=== PATIENT | female | born 1990 | race Caucasian/White ===

== ENCOUNTER → 2016-10-27 | Outpatient (CLI) | payer OTHER ==
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
== END ==
LOC: M PAIN 13:20
PROVIDERS: ATTEND Nurse Practitioner Family
DX: M53.3 Sacrococcygeal disorders, not elsewhere classified (principal); G89.29 Other chronic pain; Z79.899 Other long term (current) drug therapy; F90.9 Attention-deficit hyperactivity disorder, unspecified type; J45.909 Unspecified asthma, uncomplicated; R73.09 Other abnormal glucose; F32.9 Major depressive disorder, single episode, unspecified; I10 Essential (primary) hypertension; E55.9 Vitamin D deficiency, unspecified; G47.30 Sleep apnea, unspecified; Z72.0 Tobacco use; Z88.1 Allergy status to other antibiotic agents; Z88.5 Allergy status to narcotic agent; Z88.8 Allergy status to other drugs, medicaments and biological substances

== ENCOUNTER → 2016-11-28 | Outpatient (REF) | payer OTHER, MEDICARE ==
[2016-11-28 12:22] LABS: BASO % 0.4 % (0.0-1.0); EOS # 0.1 K/mm3 (0.0-0.50); LYMPH # 2.3 K/mm3 (1.5-6.5); LYMPH % 26.9 % (24.0-44.0); MEAN CORPUSCULAR HEMOGLOBIN 30.3 pg (27.0-33.0); MEAN CORPUSCULAR HGB CONC 33.3 g/dl (32.0-36.5); MONO # 0.4 K/mm3 (0.0-0.8); MONO % 4.7 % (0.0-5.0); NEUTROPHILS # 5.5 K/mm3 (1.8-7.7); NEUTROPHILS % 65.4 % (36.0-66.0); RED CELL DISTRIBUTION WIDTH 12.2 % (11.5-14.5); WHITE BLOOD COUNT 8.5 K/mm3 (4.0-10.0)
[2016-11-28 13:02] LABS: ALBUMIN 3.8 GM/DL (3.2-5.2); ALBUMIN/GLOBULIN RATIO 1.12 (1.00-1.93); ALKALINE PHOSPHATASE 87 U/L (45-117); ALT/SGPT 36 U/L (12-78); ANION GAP 9 MEQ/L (8-16); AST/SGOT 23 U/L (15-37); BILIRUBIN,TOTAL 0.3 MG/DL (0.2-1.0); BLOOD UREA NITROGEN 7 MG/DL (7-18); CARBON DIOXIDE LEVEL 26 MEQ/L (21-32); CHLORIDE LEVEL 105 MEQ/L (98-107); CHOLESTEROL LEVEL 186 MG/DL (<200); CREATININE FOR GFR 0.87 MG/DL (0.55-1.02); GLOMERULAR FILTRATION RATE > 60.0 (>60); GLUCOSE, FASTING 103 MG/DL (70-105); HCG, SERUM QUANTITATIVE < 1.0 MIU/ML; POTASSIUM SERUM 4.1 MEQ/L (3.5-5.1); SODIUM LEVEL 140 MEQ/L (136-145); TOTAL PROTEIN 7.2 GM/DL (6.4-8.2); TRIGLYCERIDES LEVEL 199 MG/DL (<150)
== END ==
LOC: M LABDRAW1 11:54
PROVIDERS: ATTEND Physician Assistant Medical
DX: R73.9 Hyperglycemia, unspecified (principal); I10 Essential (primary) hypertension; E55.9 Vitamin D deficiency, unspecified; N93.9 Abnormal uterine and vaginal bleeding, unspecified

== ENCOUNTER → 2017-01-18 | Outpatient (CLI) | payer OTHER ==
--- NOTE | 2017-01-19 05:16 | REP ---
Clinical: Left lower quadrant pain . Technique: Transabdominal pelvic ultrasound followed by transvaginal examination for better evaluation of the endometrium and adnexa with color Doppler evaluation of the ovaries. Findings: Bladder is unremarkable and measures 7.1 x 4.6 x 4.5 cm . Normal anteverted uterus measures 6.3 x 3.2 x 4.6 cm . The endometrial complex measures 6.5 mm thickness. No discrete uterine or endometrial abnormalities are appreciated. Bilateral ovaries are normal in appearance and vascularity without evidence for torsion. Right ovary measures 3.6 x 2.0 x 3.4 cm ; R I = 0.53 . Left ovary measures 3.0 x 2.3 x 2.9 cm ; R I = 0.52 . No pelvic fluid or adnexal mass lesions. . Impression: 1. Normal pelvic ultrasound Signed by Werner Colby MD 01/19/2017 05:08 A
== END ==
LOC: M WHC 10:22
PROVIDERS: ATTEND Nurse Practitioner Family
DX: R10.32 Left lower quadrant pain (principal)

== ENCOUNTER → 2017-03-10 | Outpatient (REF) | payer OTHER | LOC: M SFHCWAGY 10:17 | PROVIDERS: ATTEND Nurse Practitioner Family | DX: Z12.4 Encounter for screening for malignant neoplasm of cervix (principal) ==

== ENCOUNTER → 2017-07-02 | Outpatient (REF) | payer OTHER | LOC: EEVIPCON 18:49 → M LAB REF 18:49 | PROVIDERS: ATTEND Physician Assistant | DX: L02.511 Cutaneous abscess of right hand (principal) ==

== ENCOUNTER → 2018-02-19 | Outpatient (REF) | payer OTHER ==
[2018-02-19 18:38] LABS: TOTAL 25(OH) VITAMIN D 20.8 NG/ML (30.0-100.0)
== END ==
LOC: M SFHCPLAZ 16:00
DX: E55.9 Vitamin D deficiency, unspecified (principal)

== ENCOUNTER 2018-03-13 19:12 | Emergency (ER) | payer OTHER ==
[2018-03-13] MEDS: NORCO 5/325MG TABLET (BULK FOR ED) PO (21:19)
== END 2018-03-13 21:39 | disposition home or self-care (01) ==
LOC: M ED 19:12
DX: S83.411A Sprain of medial collateral ligament of right knee, initial encounter (principal); X50.1XXA Overexertion from prolonged static or awkward postures, initial encounter; Y92.098 Other place in other non-institutional residence as the place of occurrence of the external cause; I10 Essential (primary) hypertension; E28.2 Polycystic ovarian syndrome; F17.200 Nicotine dependence, unspecified, uncomplicated; J30.89 Other allergic rhinitis; Z88.5 Allergy status to narcotic agent; Z88.1 Allergy status to other antibiotic agents; Z88.8 Allergy status to other drugs, medicaments and biological substances; Z79.899 Other long term (current) drug therapy; Z79.2 Long term (current) use of antibiotics
CPT/HCPCS: 73564

== ENCOUNTER → 2018-05-24 | Outpatient (REF) | payer OTHER ==
[2018-05-24 15:59] LABS: TOTAL 25(OH) VITAMIN D 19.7 NG/ML (30.0-100.0)
== END ==
LOC: M SFHCPLAZ 10:16
DX: E55.9 Vitamin D deficiency, unspecified (principal)
CPT/HCPCS: 82306

== ENCOUNTER → 2018-06-01 | Outpatient (REF) | payer MEDICAID | LOC: M SFHCWAGY 13:48 | DX: Z12.4 Encounter for screening for malignant neoplasm of cervix (principal) ==

== ENCOUNTER → 2019-08-19 | Outpatient (CLI) | payer MEDICAID ==
[~2019-08-19] MED LIST: ATOR1TAB21 PO; CEFD1CAP8 PO; CETI10TA PO; HYDR-643 PO; LAMO150T3 PO; LISI-1046 PO; OMEP40CA97 PO
[2019-08-19 10:55] LABS: HEMOGLOBIN A1c 6.9 %
== END ==
LOC: M PLALAB 08:31
PROVIDERS: ATTEND Physician Assistant
DX: R73.01 Impaired fasting glucose (principal)

== ENCOUNTER → 2020-06-01 | Outpatient (CLI) | payer OTHER ==
[~2020-06-01] MED LIST changes: -LISI-1046 PO; +LISI2.5T2 PO
[2020-06-01 15:42] LABS: ALT/SGPT 25 U/L (12-78); BILIRUBIN,TOTAL 0.2 MG/DL (0.2-1.0); BLOOD UREA NITROGEN 8 MG/DL (7-18); CALCIUM LEVEL 9.3 MG/DL (8.5-10.1); CARBON DIOXIDE LEVEL 29 MEQ/L (21-32); CHLORIDE LEVEL 107 MEQ/L (98-107); CREATININE FOR GFR 0.78 MG/DL (0.55-1.30); GLOMERULAR FILTRATION RATE > 60.0 (>60); GLUCOSE, FASTING 109 MG/DL (70-100); SODIUM LEVEL 138 MEQ/L (136-145); TRIGLYCERIDES LEVEL 230 MG/DL (<150)
[2020-06-01 15:43] LABS: ALBUMIN 4.1 GM/DL (3.2-5.2); CHOLESTEROL LEVEL 169 MG/DL (<200); CHOLESTEROL RISK RATIO 4.694 (<5); HDL CHOLESTEROL 36 MG/DL (>40); LDL CHOLESTEROL 87 MG/DL (<100); NON-HDL-C 133 MG/DL; TOTAL PROTEIN 7.6 GM/DL (6.4-8.2)
== END ==
LOC: M PLALAB 13:33
PROVIDERS: ATTEND Nurse Practitioner Family
DX: E78.2 Mixed hyperlipidemia (principal)

== ENCOUNTER → 2020-11-12 | Outpatient (CLI) | payer OTHER ==
--- NOTE | 2020-11-16 14:46 | SLEEPHOME ---
DIAGNOSTIC HOME SLEEP STUDY DATE: 11/12/2020 ORDERED BY: ZACH Vizcaino Diagnostic home sleep testing was performed due to concern for the obstructive sleep apnea syndrome in this patient with a history of excessive somnolence and nonrestorative sleep. For testing, a nocturnal T3 respiratory monitoring device was used. Continuous record was made of pulse, oxygen saturation, air flow, chest and abdominal strain, and body position. 9 hours and 59 minutes of data were reviewed. There were 4 hours and 57 minutes marked as time in bed. During the interval marked time in bed, there were 126 respiratory events identified of 10 seconds in duration or greater for a respiratory event index 25.4. The events were primarily obstructive. Baseline pulse rate 64. Pulse rate range 49 to 93. Baseline saturation was 94%. Saturations fell to 83%. Testing was performed in both the supine and non-supine positions. IMPRESSION: Abnormal home sleep testing, with repetitive respiratory events and oxygen desaturations to 83% with a respiratory event index of 25.4, is consistent with the obstructive sleep apnea syndrome. RECOMMENDATION: The patient should be encouraged to undergo a formal sleep evaluation. Sherrie Liu
== END ==
LOC: M SLEEP HO 11:30
PROVIDERS: ATTEND Nurse Practitioner Family
DX: R06.83 Snoring (principal)

== ENCOUNTER → 2020-12-03 | Outpatient (REF) | payer OTHER | LOC: M SFHCWAGY 10:10 | PROVIDERS: ATTEND Nurse Practitioner Women's Health | DX: Z12.4 Encounter for screening for malignant neoplasm of cervix (principal); Z77.9 Other contact with and (suspected) exposures hazardous to health ==

== ENCOUNTER → 2021-01-14 | Outpatient (REF) | payer OTHER ==
[2021-01-14 18:31] LABS: MALB URINE SIEMENS 19.7 MG/L; MAU/CREAT RATIO 15.5 MCG/MG (0.0-30.0)
== END ==
LOC: M LAB REF 17:04
PROVIDERS: ATTEND Nurse Practitioner Family
DX: E11.65 Type 2 diabetes mellitus with hyperglycemia (principal)

== ENCOUNTER → 2021-01-22 | Outpatient (REF) | payer OTHER ==
[2021-01-22 17:24] LABS: HEMOGLOBIN A1c 5.6 %
[2021-01-22 17:38] LABS: BLOOD UREA NITROGEN 5 MG/DL (7-18); C REACTIVE PROTEIN QUANTITATIV 0.55 MG/DL (0.00-0.30); CALCIUM LEVEL 9.4 MG/DL (8.5-10.1); CARBON DIOXIDE LEVEL 29 MEQ/L (21-32); CHLORIDE LEVEL 105 MEQ/L (98-107); CREATININE FOR GFR 0.53 MG/DL (0.55-1.30); GLOMERULAR FILTRATION RATE > 60.0 (>60); GLUCOSE, FASTING 77 MG/DL (70-100); POTASSIUM SERUM 4.1 MEQ/L (3.5-5.1); RHEUMATOID FACTOR QUANT < 10.0 IU/ML (<15.0); SODIUM LEVEL 138 MEQ/L (136-145)
[2021-01-27 16:12] LABS: ANTINUCLEAR ANTIBODIES DIRECT Negative (Negative); CYCLIC CITRULLINATED PEPTIDE 5 units (0-19); HLA-B27 Negative (.)
== END ==
LOC: M SFHCPLAZ 15:44
PROVIDERS: ATTEND Physician Assistant
DX: E11.9 Type 2 diabetes mellitus without complications (principal); M13.0 Polyarthritis, unspecified

== ENCOUNTER → 2021-02-02 | Outpatient (CLI) | payer OTHER ==
--- NOTE | 2021-02-02 14:31 | PFTRPT ---
Height: 61.00 Inches Weight: 209.00 Lbs BSA: 1.92 Diagnosis: R05 DATE: 02/02/2021 ORDERING PHYSICIAN: NATASHA Vizcaino Pre and post bronchodilator studies have excellent technical quality. Forced vital capacity is normal. FEV1 is in proportion. Obstructive index is therefore normal. Expiratory limit of the flow-volume loop is normal. No significant bronchodilator response is identified. Total lung capacity is normal. Residual volume is in proportion. Diffusing capacity is normal. Hemoglobin is acceptable at 14.0. Airway resistance and conductance are normal. IMPRESSION: Normal study. MTDD
--- NOTE | 2021-02-02 14:54 | REP ---
INDICATION: SNORING COMPARISON: 12/31/2012 TECHNIQUE: PA and lateral. FINDINGS: The mediastinum and cardiac silhouette are normal. The lung galvin are clear and without acute consolidation, effusion, or pneumothorax. The skeletal structures are intact and normal. IMPRESSION: No acute cardiopulmonary process. <Electronically signed by Werner Colby > 02/02/21 8428
== END ==
LOC: M CARPUL 13:59
PROVIDERS: ATTEND Nurse Practitioner Family
DX: R05 Cough (principal)

== ENCOUNTER → 2021-08-09 | Outpatient (CLI) | payer OTHER ==
[~2021-08-09] MED LIST changes: -CEFD1CAP8 PO; +CEFD300C41 PO; +ERGO500029; -LISI2.5T2 PO; +LISI2.5T9 PO; +METF-839 PO; +OMEP40CA4 PO; -OMEP40CA97 PO; +TRUL10IN; +ZOLO100T
[2021-08-09 17:38] LABS: BASO % 0.3 % (0.0-1.0); EOS # 0.1 10^3/uL (0.0-0.5); EOS % 0.7 % (0.0-3.0); HEMATOCRIT 42.3 % (36.0-47.0); HEMOGLOBIN 13.9 g/dl (12.0-15.5); LYMPH # 3.2 10^3/uL (1.5-5.0); LYMPH % 35.7 % (24.0-44.0); MEAN CORPUSCULAR HEMOGLOBIN 29.6 pg (27.0-33.0); MEAN CORPUSCULAR HGB CONC 32.9 g/dl (32.0-36.5); MONO # 0.5 10^3/uL (0.0-0.8); MONO % 5.4 % (2.0-8.0); NEUTROPHILS # 5.2 10^3/uL (1.5-8.5); NEUTROPHILS % 57.6 % (36.0-66.0); PLATELET COUNT, AUTOMATED 230 10^3/uL (150-450); WHITE BLOOD COUNT 9.1 10^3/uL (4.0-10.0)
[2021-08-09 17:50] LABS: INR 1.03; PROTHROMBIN TIME 13.9 SECONDS (12.7-14.5)
[2021-08-09 18:06] LABS: HEMOGLOBIN A1c 5.8 %
[2021-08-09 18:28] LABS: ALBUMIN 3.6 GM/DL (3.2-5.2); ALT/SGPT 28 U/L (12-78); BILIRUBIN,TOTAL 0.2 MG/DL (0.2-1.0); BLOOD UREA NITROGEN 7 MG/DL (7-18); CALCIUM LEVEL 8.8 MG/DL (8.5-10.1); CARBON DIOXIDE LEVEL 28 MEQ/L (21-32); CHLORIDE LEVEL 108 MEQ/L (98-107); CREATININE FOR GFR 0.61 MG/DL (0.55-1.30); GLOMERULAR FILTRATION RATE > 60.0 (>60); GLUCOSE, FASTING 100 MG/DL (70-100); POTASSIUM SERUM 3.9 MEQ/L (3.5-5.1); SODIUM LEVEL 141 MEQ/L (136-145)
[2021-08-09 18:29] LABS: FREE T4 0.71 NG/DL (0.76-1.46); NT-PRO BNP 47 PG/ML (<125)
== END ==
LOC: M PLALAB 15:49
PROVIDERS: ATTEND Family Medicine
DX: E11.9 Type 2 diabetes mellitus without complications (principal)

== ENCOUNTER → 2021-08-13 | Outpatient (CLI) | payer OTHER ==
[~2021-08-13] MED LIST changes: +CEFD1CAP8 PO; -CEFD300C41 PO
== END ==
LOC: M LABSMTC 10:45
PROVIDERS: ATTEND Anesthesiology
DX: Z01.812 Encounter for preprocedural laboratory examination (principal); Z20.822 Contact with and (suspected) exposure to COVID-19

== ENCOUNTER 2021-08-18 08:25 | Day surgery (SDC) | payer OTHER ==
[~2021-08-18] VITALS: Ht 154.9 cm; Wt 94.9 kg
[~2021-08-18 08:25] MED LIST changes: +LIDOCAINE 1% MDV 20ML VIAL SQ PRN; +LR 1,000 ML IV ONE; +ceFAZolin SOD 2 GM in IV 1 EA IV ONE
--- OUTSIDE RECORDS SUMMARY | 2021-08-18 08:31 | CCD | Continuity of Care Document ---
Author Author Raymon LOVELL MOBILE LOUNGE DRIVER OR OPERATOR Organization Unknown Address [address] [place] [address] [place] [address] Phone [phone] Care Team Providers Care Conductor Freight Name Role Phone [facility] AUTM [phone] Problems Description No Information Available Social History Type Date Description Comments Sex Unknown Tobacco Use Start: Unknown End: Unknown Former Cigarette Smo ker ETOH Use Occasionally consumes alcohol Tobacco Use Start: Unknown End: Unknown Patient is a former smoker Tobacco Use Start: Unknown Patient Currently Vapes Smoking Status Reviewed: 07/27/21 Patient Currently Vapes Allergies and adverse reactions Active Allergies Criticality Reaction | Severity Comments Date Morphine Sulfate Unable to assess criticality hallucin ations 06/11/2008 Ortho Evra Unable to assess criticality rash 06/11/2008 Codeine Unable to assess criticality hives 01/31/2017 Clarithromycin Unable to assess criticality vomiting 09/16/2017 Medications Active Medications SIG Qnty Indications Ordering Provide r Date Lisinopril 2.5mg Tablets 1 by mouth every day Unknown Omeprazole 40mg Capsules DR 1 by mouth daily. take 1 hour before eating Unknown Lamotrigine 150mg Tablets 2 q d Unknown Loratadine 10mg Tablets 1 by mouth every day Unknown Hydroxyzine HCL 10mg Tablets daily Unknown Sertraline HCL 100mg Tablets daily Unknown Atorvastatin Calcium Unknown Ventolin HFA Unknown History Medications Prednisone 20mg Tablets 1 tab twice a day for 4 days 8tabs M25.552 Wero Taylor JR., M.D. 08/2021 - 02/24/2021 Ibuprofen 800mg Tablets 1 tablet by mouth three times a day as needed for pain 60tabs M25.552 Col kim Taylor JR., M.D. 02/20/2021 - 03/02/2021 Immunizations CPT Code Status Date Vaccine Reaction Lot # [id number] Given 01/31/2017 Tdap/Tetanus, Di phth Toxoids/Acellular Pertussis Vac 7Yr Or > No reaction [id number] Vital Signs Date Vital Result Comment 07/27/2021 2:37pm BP Systolic 138 mmHg BP Diastolic 78 mmHg Heart Rate 80 /min Respiratory Rate 20 /min O2 % BldC Oximetry 99 % Body Temperature 98.0 F Weight 209.00 lb Height 61 inches 5'1" BMI (Body Mass Index) 39.5 kg/m2 Pain Level 4 02/20/2021 1:18pm BP Systolic 138 mmHg BP Diastolic 82 mmHg Heart Rate 82 /min Respiratory Rate 16 /min O2 % BldC Oximetry 98 % Body Temperature 98.0 F Weight 208.00 lb Height 61 inches 5'1" BMI (Body Mass Index) 39.3 kg/m2 Pain Level 5 Results Description No Information Available Procedures Date Code Description Status 07/27/2021 08999 Office/Outpatient Established Mo d MDM 30-39 Min Completed 02/20/2021 33232 Office/Outpatient Established Lo w MDM 20-29 Min Completed Medical Devices Description No Information Available Encounters Type Date Location Provider Dx Diagnosis Office Visit 07/27/2021 2:10p Main Office Ashley Lovell NP J06. 9 Acute upper respiratory infection, unspecified R11.0 Nausea Z20.828 Contact w and exposure to ot h viral communicable diseases Office Visit 02/20/2021 12:25p Main Office Ashley Lovell NP M25. 552 Pain in left hip Assessments Date Code Description Provider 07/27/2021 J06.9 Acute upper respiratory infectio n, unspecified Ashley Lovell NP 07/27/2021 R11.0 Nausea Ashley mathews NP 07/27/2021 Z20.828 Contact with and (schaefer spected) exposure to other viral communicable diseases Ashley Lovell NP 02/20/2021 M25.552 Pain in left hip Ashley khalil NP Plan of Treatment No Information Available Functional Status Description No Information Available Mental Status Description No Information Available Referrals Refer to Reason for Referral Status Appt Date Drake Hagen MD left hip pain x3-4 months Patient Declined [address] [place], [place] [id number] [phone]
--- OUTSIDE RECORDS SUMMARY | 2021-08-18 08:31 | CCD | Continuity of Care Document ---
Author Author Raymon DON NP Organization Unknown Address [address] [place] [address] Phone [phone] Care Team Providers Care Guest Services Coordinator Name Role Phone Shukri Velazquez RPA AUTM [phone] Diamond Gomez RPA-C AUTM [phone] Problems Active Problems Provider Date Bipolar disorder Onset: 12/11/2018 Diabetes mellitus Onset: 05/04/2019 Essential hypertension Onset: 12/11/2018 Gastroesophageal reflux disease Onset: 0 12/11/2018 Hyperlipidemia Onset: 12/11/2018 Low back pain Onset: 12/11/2018 Obstructive sleep apnea syndrome Onset: 12/11/2018 Polycystic ovary syndrome Onset: 019 Vitamin D deficiency Onset: 12/11/2018 Pure hypercholesterolemia Shruti Don NP Onset: 11/09 Social History Type Date Description Comments Sex Unknown Cigarette Use Former Cigarette Smoker 1-5 Ciga rettes Daily quit: 2019 ETOH Use Rarely consumes alcohol Tobacco Use Start: Unknown End: Unknown Patient is a former smoker Smoking Status Reviewed: 07/28/21 Patient is a former smoker Allergies and adverse reactions Active Allergies Criticality Reaction | Severity Comments Date Biaxin Unable to assess criticality Vomiting 11/20/2019 Codeine Unable to assess criticality Hives 11/20/2019 Morphine Unable to assess criticality Hallucinations 11/20/2019 Ortho Evra Unable to assess criticality Contact dermatitis 11/20/2019 Medications Active Medications SIG Qnty Indications Ordering Provide r Date BD Uf Mini Pen Needle [id number] Use Once Daily 100units Ophelia Don NP 06/04/2020 Metformin HCL ER 500mg Tablets ER 24HR take one tablet by mouth twice a day 180tabs E11.65 Shruti wharton NP 12/10/2019 BD Pen Needle/Mini/Ultra-Fine/31G X 5mm 31G X 5 mm Misc use 1 per day 100units E11.65 Shruti Don NP 11/11 Proventil HFA 108(90Base) mcg/Act Aerosol 2 puffs every 4 hours as needed 6.700units Liban Capone, D O 07/26/2019 Vitamin D3 50mcg (2000 Ut) Capsule s 1 po qd 30caps Liban Capone, DO 07/24/[address] 1 by mouth every day 90caps Liban Capone, DO 03/15/2019 Lamotrigine 150mg Tablets 2 tabs by mouth every day 60tabs Liban Capone, DO 12/11/2018 Loratadine 10mg Capsules 1 by mouth every day 30caps Liban Capone, DO 12/11/2018 Sertraline HCL 100mg Tablets 2 tabs by mouth every day 60tabs Liban Capone, DO 12/11/2018 Hydroxyzine HCL 25mg Tablets 1/2 tab by mouth two times a day as needed Unknown Onetouch Verio Flex Blood Glucose Monito ring System w/Device Kit use as directed to check bloodsugars Unknown Onetouch Verio Strips use as directed up to 1 x daily e11.65 100units Shruti Don NP Immunizations Description No Information Available Vital Signs Date Vital Result Comment 07/28/2021 3:22pm BP Systolic 124 mmHg BP Diastolic 68 mmHg Heart Rate 78 /min Height 62.6 inches 5'2.60" Weight 209.00 lb BMI (Body Mass Index) 37.5 kg/m2 O2 % BldC Oximetry 98 % 01/14/2021 1:21pm BP Systolic 136 mmHg BP Diastolic 86 mmHg Heart Rate 81 /min Body Temperature 97.1 F Height 62.6 inches 5'2.60" Weight 216.12 lb BMI (Body Mass Index) 38.8 kg/m2 O2 % BldC Oximetry 96 % Results Test Acquired Date Facility Test Result H/L Range Note Laboratory test finding 07/28/2021 In House Glucose 129 Hemoglobin A1c 5.7 Procedures Date Code Description Status 07/28/2021 29384 Office/Outpatient Established Mo d MDM 30-39 Min Completed 01/14/2021 [id number] Diabetic Foot Exam Completed Medical Devices Description No Information Available Encounters Type Date Location Provider Dx Diagnosis Office Visit 07/28/2021 3:30p DR. Lou Don, N P E11.65 Type 2 diabetes mellitus with hyperglycemia E78.2 Mixed hyperlipidemia E66.01 Morbid (severe) obesity due to excess calories Z68.38 Body mass index [BMI] 38.0-3 8.9, adult Assessments Date Code Description Provider 07/28/2021 E11.65 Type 2 diabetes mellitus with hy perglycemia Shruti Don, OMID 07/28/2021 E78.2 Mixed hyperlipidemia Shruti wharton, OMID 07/28/2021 E66.01 Morbid (severe) obesity due to e xcess calories Shruti Don, MOTHER SUPERIOR 07/28/2021 Z68.38 Body mass index [BMI] 38.0-38.9, adult Shruti Don, OMID 07/19/2021 E11.65 Type 2 diabetes mellitus with hy perglycemia Shruti Don, MOTHER SUPERIOR 07/19/2021 E78.2 Mixed hyperlipidemia Shruti wharton, MOTHER SUPERIOR 07/19/2021 E66.01 Morbid (severe) obesity due to e xcess calories Shruti Don, MOTHER SUPERIOR 07/19/2021 Z68.38 Body mass index [BMI] 38.0-38.9, adult Shruti Don NP Plan of Treatment 07/28/2021 - Shruti Don NP* E11.65 Type 2 diabetes mellitus with hyperglycemia* Comments:* Pt referred for new onset Type 2 Diabetes- dx in 04/2019. Is accompanied by her mother. 07/28/21- in office A1c= 5.7 % (5.4 %, 5.7%, 6.2%, 7%, 08/19/19-6.9%. 05/01/19- A1c= 6.8%) Random BS= 129No meter for downloadCurrent medication: Metformin ER 500mg 1 tab BID, Trulicity 0.75mg weekly( pt stopped taking 2 months ago)Was given Steglatro by PCP but never started- pt prone to UTI and yeast infections. Will continue same. Will recheck in 6 months. * Follow up:* Follow up in 6 months. JL * E78.2 Mixed hyperlipidemia* New Labs:* Lipid Panel, Scheduled: 07/28/21 * Comprehensive Metabolic Profil, Scheduled: 07/28/21 * Comments:* LDL goal < 100Labs done 06/01/2020- chol= 169, Trig= 230, HDL= 36, LDL= 87Pt advised to start Fish oil 1000mg 1 tab BID , never didPt did not have lipid panel and CMP done * E66.01 Morbid (severe) obesity due to excess calories* Comments:* calorie restriction and exercise advised. Did lose 7 lbs since last visit. Will continue same * Z68.38 Body mass index [BMI] 38.0-38.9, adult* Comments:* Diet and exercise discussed. Functional Status Description No Information Available Mental Status Description No Information Available Referrals Refer to Reason for Referral Status Appt Date Shruti Don NP Created 0 [address] [facility] [id number] [place] [id number] [phone]
--- OUTSIDE RECORDS SUMMARY | 2021-08-18 08:31 | CCD | Continuity of Care Document ---
Author Author Raymon DON NP Organization Unknown Address [address] [place] [address] Phone [phone] Care Team Providers Care Coin Machine Supervisor Name Role Phone Shukri Velazquez RPA AUTM [phone] Diamond Gomez RPA-C AUTM [phone] Problems Active Problems Provider Date Bipolar disorder [...] is a former smoker Smoking Status Reviewed: 01/14/21 Patient is a former smoker Allergies and adverse reactions Active Allergies Criticality Reaction | Severity Comments Date Biaxin Unable to assess criticality Vomiting 11/20/2019 Codeine Unable to assess criticality Hives 11/20/2019 Morphine Unable to assess criticality Hallucinations 11/20/2019 Ortho Evra Unable to assess criticality Contact dermatitis 11/20/2019 Medications Active Medications SIG Qnty Indications Ordering Provide r Date BD Uf Mini Pen Needle [id number] Use Once Daily 100units Ophelia Don NP 06/04/2020 Metformin HCL ER 500mg Tablets ER 24HR take one tablet by mouth twice a day 360tabs E11.65 Shruti wharton NP 12/10/2019 BD Pen [...] A1c 5.7 Procedures Date Code Description Status 01/14/2021 [id number] Diabetic Foot Exam Completed Medical Devices Description No Information Available Encounters Description No Information Available Assessments Date Code Description Provider 07/28/2021 E11.65 Type 2 diabetes mellitus with hy perglycemia Shruti Don, OMID 07/28/2021 E78.2 Mixed hyperlipidemia Shruti wharton, OMID 07/28/2021 E66.01 Morbid (severe) obesity due to e xcess calories Shruti Don, OMID 07/28/2021 Z01.89 Encounter for other specified sp ecial examinations Shruti Don NP 07/28/2021 Z68.38 Body mass index [BMI] 38.0-38.9, adult Shruti Don, OMID 07/19/2021 E11.65 Type 2 diabetes mellitus with hy perglycemia Shruti Don NP 07/19/2021 E78.2 Mixed hyperlipidemia Shruti wharton, OMID 07/19/2021 E66.01 Morbid (severe) obesity due to e xcess calories Shruti Don, OMID 07/19/2021 Z68.38 Body mass index [BMI] 38.0-38.9, adult Shruti Don NP Plan of Treatment 07/28/2021 - Shruti Don NP* E11.65 Type 2 diabetes mellitus with hyperglycemia* Comments:* Pt referred for new onset Type 2 Diabetes- dx in 04/2019. Is accompanied by her mother. 01/14/21- in office A1c= 5.4 % (5.7%, 6.2%, 7%, 08/19/19-6.9%. 05/01/19- A1c= 6.8%) Random BS= 98No meter for downloadCurrent medication: Metformin ER 500mg 1 tab BID, Trulicity 0.75mg weeklyWas given Steglatro by PCP but never started- pt prone to UTI and yeast infections. Unable to tolerate higher dose of TrulicityContinues to improve Will continue same.. Will recheck in 6 months. * Follow up:* Follow up in 6 months. ELIZABETH * E78.2 Mixed hyperlipidemia* Comments:* LDL goal < 100Labs done 06/01/2020- chol= 169, Trig= 230, HDL= 36, LDL= 87Pt advised to start Fish oil 1000mg 1 tab BID , never didWill recheck lipid panel and CMP * E66.01 Morbid (severe) obesity due to excess calories* Comments:* calorie restriction and exercise advised. No weight loss since last visit. Will continue same * Z01.89 Encounter for other specified special examinations* Comments:* Foot Exam performed 01/14/21 . Normal light touch and monofilament marvin ting and vibration. * Z68.38 Body mass index [BMI] 38.0-38.9, adult* Comments:* Diet and exercise discussed. Functional Status Description No Information Available Mental Status Description No Information Available Referrals Refer to Reason for Referral Status Appt Date Shruti Don NP Created 0 [address] [facility] [address] [place], [place] [id number] [phone]
--- OUTSIDE RECORDS SUMMARY | 2021-08-18 08:31 | CCD | Continuity of Care Document ---
Author Author Raymon DELACRUZ MD Organization Unknown Address [address] [place] [address] , [facility] [address] [place] [address] Phone [phone] Care Team Providers Care Clam Grower Name Role Phone AUTM Unavailable Diamond Gomez AUTM Problems Active Problems Provider Date Type 2 diabetes mellitus Shivam Delacruz MD Onset: 04/27/20 Social History Type Date Description Comments Sex Unknown ETOH Use Rarely consumes alcohol Recreational Drug Use Marijuana Tobacco Use Start: Unknown End: Patient is a former smoker hx of 1 ppd Tobacco Use Start: Unknown Using Electronic Cig. Smoking Status Reviewed: 02/15/21 Patient is a former smoker hx of 1 ppd Allergies and adverse reactions Active Allergies Criticality Reaction | Severity Comments Date Morphine Unable to assess criticality 06/24/2011 Codeine Unable to assess criticality 06/24/2011 Biaxin Unable to assess criticality 06/24/2011 Ortho Evra Unable to assess criticality 06/24/2011 Medications Active Medications SIG Qnty Indications Ordering Provide r Date Trulicity 1.5mg/0.5ML Solution Pen -Inject once a week Unknown Hydroxyzine HCL 10mg Tablets 1/2 tab by mouth twice a day as needed Unknown Lamictal 150mg Tablets 2 tabs by mouth every day Unknown Flonase Allergy Relief 50mcg/Act Suspension 2 sprays per nostril daily Unknown 0 Meloxicam 15mg Tablets 1 tab by mouth every day Unknown Atorvastatin Calcium 20mg Tablets 1 tab by mouth every day Unknown Metformin HCL ER (Mod) 500mg Tablets ER 24HR 2 tabs by mouth every day 30tabs Unknown Sertraline HCL 100mg Tablets 2 tabs by mouth every day Unknown Omeprazole 40mg Capsules DR 1 cap by mouth every day 30caps Unknown Loratadine 10mg Tablets 1 tab by mouth every day 30tabs Unknown Vitamin D3 50mcg (2000 Ut) Capsule s 1 cap by mouth every day Unknown Lisinopril 2.5mg Tablets 1 tab by mouth every day Unknown Medications Administered in Office Medication SIG Qnty Indications Ordering Provider Date Covid-19 vaccine, Unspecified Inj ection Unknown 01/08/2021 Covid-19 vaccine, Unspecified Inj ection Unknown 12/18/2020 Immunizations Description No Information Available Vital Signs Date Vital Result Comment 07/08/2021 1:35pm Body Temperature 97.6 F 04/27/2021 1:41pm Body Temperature 97.0 F Results Description No Information Available Procedures Date Code Description Status 07/08/2021 58069 Office/Outpatient Established Mo d MDM 30-39 Min Completed 06/03/2021 30816 Office/Outpatient Established Mo d MDM 30-39 Min Completed 04/27/2021 46192 Office/Outpatient New Moderate M DM 45-59 Minutes Completed 04/06/2021 51781 Measure Blood Oxygen Level Claire nuous Overnight Monitor Completed 02/15/2021 32469 Office/Outpatient Established Lo w MDM 20-29 Min Completed Medical Devices Description No Information Available Encounters Type Date Location Provider Dx Diagnosis Office Visit 07/08/2021 1:30p [facility] Shivam Delacruz MD G56.03 Carpal tunnel syndrome, bilateral upper limbs Office Visit 06/03/2021 9:15a [facility] Shivam Delacruz MD G56.03 Carpal tunnel syndrome, bilateral upper limbs Office Visit 04/27/2021 1:45p [facility] Shivam Delacruz MD G56.03 Carpal tunnel syndrome, bilateral upper limbs Office Visit 02/15/2021 2:45p [facility] Von Lee, N.P. G47.33 Obstructive sleep apnea (adult) (pediatr ic) Z71.2 Person consulting for explan ation of exam or test findings Assessments Date Code Description Provider 07/08/2021 G56.03 Carpal tunnel syndrome, bilatera l upper limbs Shivam Delacruz MD 06/03/2021 G56.03 Carpal tunnel syndrome, bilatera l upper limbs Shivam Delacruz MD 04/27/2021 G56.03 Carpal tunnel syndrome, bilatera l upper limbs Shivam Delacruz MD 04/06/2021 G47.33 Obstructive sleep apnea (adult) (pediatric) Nocturnal Oximetry 02/15/2021 G47.33 Obstructive sleep apnea (adult) (pediatric) Beatriz Lee NJulieta 02/15/2021 Z71.2 Person consulting fo r explanation of examination or test findings Beatriz Lee N.P. Plan of Treatment Future Appointment(s):* 08/18/2021 12:45 pm - Beatriz Lee N.P. at [facility] 07/08/2021 - Shivam Delacruz MD* G56.03 Carpal tunnel syndrome, bilateral upper limbs Functional Status Description No Information Available Mental Status Mental Condition Comment Date Status None Active Referrals Refer to Dr Reason for Referral Status Appt Date Beatriz Lee F.N.Speedy ASTHMA J45.909 & LEIGH ANN G47.33 Created [facility] [address] [place] [address] [phone] Jose Sahu M.D. NCS/EMG bilateral upper extr emities assess for CTS, possible cubital tunnel or cervical radiculopathy Closed 05/11/2021 [facility], [address] [place] [address] [phone] Beatriz Lee F.NJulieta asthma/leigh ann Cl[facility]/15[facility]2021 [facility] [address] [place], [place] [address] [phone]"
--- OUTSIDE RECORDS SUMMARY | 2021-08-18 08:31 | CCD | Continuity of Care Document ---
Author Author Raymon LOVELL TONGUE CARRIER Organization Unknown Address [address] [place] [address] [place] [address] Phone [phone] Care Team Providers Care Lens Edge Grinder Machine Name Role Phone [facility] AUTM [phone] Problems Description No Information Available Social History [...] Code Status Date Vaccine Reaction Lot # [id number] Given 01/31/2017 Tdap/Tetanus, Di phth Toxoids/Acellular Pertussis Vac 7Yr Or > No reaction [id number] Vital Signs Date Vital Result Comment 07/27/2021 [...] Information Available Procedures Date Code Description Status 02/20/2021 40787 Office/Outpatient Established Lo w MDM 20-29 Min Completed Medical Devices Description No Information Available Encounters Type Date Location Provider Dx Diagnosis Office Visit 02/20/2021 12:25p Main Office Ashley Lovell NP M25. 552 Pain in left hip Assessments Date Code Description Provider 02/20/2021 M25.552 Pain in left hip Ashley khalil NP Plan of Treatment No Information Available Functional Status Description No Information Available Mental Status Description No Information Available Referrals Refer to Reason for Referral Status Appt Date Drake Hagen MD left hip pain x3-4 months Patient Declined [address] [place] [address] [phone]
--- OUTSIDE RECORDS SUMMARY | 2021-08-18 08:31 | CCD | Continuity of Care Document ---
Author Author Raymon CAPONE PA-C Organization Unknown Address [address] [place] [address] Phone [phone] Care Team Providers Care Management Retail Intern Name Role Phone Randi Liu AIDA AUTM [phone] Diamond Gomez AUTM [phone] Problems Active Problems Provider Date Fracture Phalanx Hand Middle/Prox Closed Onset: 07/02/1999 Sprain of foot Yasmani Medeiros JR, MD Onset: 02/03/20 07 Closed fractures of tarsal AND metatarsal bones Ty larose MD Onset: 01/11/2006 Fracture Phalanx Hand Middle/Prox Closed Bruno Shepard MD Onset: 01/25/2005 Degeneration of lumbar intervertebral disc Ayah Ornelas Onset: 12/21/2004 Contusion of knee Marixa Fitzgerald MD Onset: 10/13/19 05 Closed Colles' fracture Jack Holly MD Onset: Closed fracture of tibia and fibula, shaft Marixa easley MD Onset: 06/16/2003 Closed fracture of radius Elgin Melo MD Onset: 1999 Sprain of ankle Yasmani Medeiros JR, MD Onset: 02/03/20 07 Essential hypertension Onset: 05/04/2015 Pure hypercholesterolemia Onset: 015 Social History Type Date Description Comments Sex Unknown Tobacco Use Start: Unknown End: Unknown Former Cigarette Smo ker ETOH Use Rarely consumes alcohol Recreational Drug Use Denies Drug Use Allergies and adverse reactions Active Allergies Criticality Reaction | Severity Comments Date Morphine Unable to assess criticality 11/12/2013 Codeine Unable to assess criticality 11/12/2013 Biaxin Unable to assess criticality 11/12/2013 Orthoevra Unable to assess criticality 11/12/2013 Ethinyl Estradiol Unable to assess criticality 03/13/2018 Clarithromycin Unable to assess criticality Vomits | Mild 03/13/2018 Medications Active Medications SIG Qnty Indications Ordering Provide r Date Tramadol HCL 50mg Tablets Take 1 tablet every 6 hours as needed for pain. 30tabs Marixa streeter MD 09/27/2018 Ibuprofen 600mg Tablets 1 tab by mouth three times a day 90tabs Gorge Guallpa MD 018 Trulicity 1.5mg/0.5ML Solution Pen -Inject Inject 1.5MG Under The Skin Once A Week as Directed Unknown Meloxicam 15mg Tablets Rodrigo Cooper, DPAyah BD Pen Needle/Mini/Ultra-Fine/31G X 5mm 31G X 5 mm Misc Use 1 Needle Daily Unknown 0 Prednisone 20mg Tablets Ashley Berg FNP Onetouch Ultra Strips Use as Directed Up To 1 Daily Unknown Gabapentin 300mg Capsules Take One Capsule By Mouth Every Day Before Bedtime as Directed Un known Ondansetron HCL 4mg Tablets Take One Tablet By Mouth Twice A Day as Needed For Nausea For 5 Days Unknown Trulicity 0.75mg/0.5 ML Solution Pen-Inject Inject 1 Pen Subcutaneously Once Weekly U nknown Loratadine 10mg Tablets Take One Tablet By Mouth Every Day as Needed For Allergy Symptoms U nknown Vitamin D 1000Unit Tablets 1 by mouth every day Unknown Lisinopril 2.5mg Tablets Chastity y Unknown Hydroxyzine HCL 10mg Tablets Twice A Day Unknown Atorvastatin Calcium 20mg Tablets 1 by mouth every day Unknown Ventolin HFA 108(90Base) mcg/Act A erosol 2 puffs four times a day as needed Unknown Lamotrigine 150mg Tablets 1 by mouth every day Unknown Sertraline HCL 100mg Tablets 1 by mouth every day Unknown Hydroxyzine HCL 20mg Tablets 1 po qd Unknown Omeprazole 40mg Capsules DR 1 po qd Unknown Immunizations Description No Information Available Vital Signs Date Vital Result Comment 07/21/2021 2:51pm Body Temperature 97.4 F Height 62 inches 5'2" Weight 212.00 lb BMI (Body Mass Index) 38.8 kg/m2 12/04/2018 8:50am Body Temperature 97.4 F Height 62.5 inches 5'2.50" Weight 222.06 lb BMI (Body Mass Index) 40.0 kg/m2 Results Description No Information Available Procedures Date Code Description Status 07/21/2021 18821 Office/Outpatient Established Mo d MDM 30-39 Min Completed 07/21/2021 04548 X-Ray Knee Complete W/Obliques & Tunnel And/Or Standing Views Completed Medical Devices Description No Information Available Encounters Type Date Location Provider Dx Diagnosis Office Visit 07/21/2021 2:15p [facility] Demi Capone PA-C S80.02x A Contusion of left knee, initial encounter M17.12 Unilateral primary osteoarth ritis, left knee Assessments Date Code Description Provider 07/21/2021 S80.02xA Contusion of left knee, initial encounter Demi Capone PA-C 07/21/2021 M17.12 Unilateral primary osteoarthriti s, left knee Demi Capone PA-C Plan of Treatment Future Appointment(s):* 08/23/2021 1:15 pm - Demi Capone PA-C at [facility] * 08/12/2021 3:30 pm - MRI at [facility] 07/21/2021 - Demi Capone PA-C* S80.02xA Contusion of left knee, initial encounter* Follow up:* [facility] BOOK IT f/u after MRI results with ZOILA skinner avil for back with ZOILA * M17.12 Unilateral primary osteoarthritis, left knee Functional Status Description No Information Available Mental Status Description No Information Available Referrals Refer to Reason for Referral Status Appt Date Demi Capone PA-C MRI APPROVED PER [facility] WEB FOR MRI OF LEFT KNEE (56339) TO MRI. DG Created [address] [place] [address] [phone] Demi Capone PA-C AUTH FOR PT EVAL [phone] ,[phone]. PAT GOING TO [place]. PASSED TO CHART.HW Created [facility] [place] [address] [phone] Se Duran I, Pac M54.5 LOW BACK PAIN Created [facility] [place] [id number] [phone] Se Duran I, Pac M25.562/M25.561 AZAR KNEE PAIN Created [facility] [address] [address] [phone]
--- OUTSIDE RECORDS SUMMARY | 2021-08-18 08:31 | CCD ---
Author Author [facility] Organization [facility] Address Unknown Phone Unavailable Care Team Providers Care Saturator Name Role Phone Leonardo Eaton Unavailable PROBLEMS Type Condition ICD9-CM Code [id number] Code Onset Dates Condition S tatus W/U Status Risk SNOMED Code Notes Problem Bipolar disorder, unspecified F31.9 Active confirm ed 80564905 She is managed by mental health with sertraline and lamotrigine. Problem ADD (attention deficit disorder) without hyperactivity F98.8 Active confirmed 23861737 Problem Mixed hyperlipidemia E78.2 Active confirmed 589760805 She is on atorvastatin. Most recent lipids in November 2017 were suboptimal but this is managed by her tier lift truck operator. 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 Problem PCOS (polycystic ovarian syndrome) E28.2 Activ e confirmed 76727055 Problem LEIGH ANN (obstructive sleep apnea) G47.33 Active confirm ed 23211831 She apparently is treated for that. Problem Exercise-induced asthma J45.990 Active confirmed 36659860 Problem Bilateral carpal tunnel syndrome G56.03 Active conf irmed 29028792 Problem Gastroesophageal reflux disease, esophagitis pre sence not specified K21.9 Active confirmed 004268636 She is on omep razole therapy with controlled symptoms. Problem History of nicotine use Z87.891 Active confirmed 898312178 Problem Obesity (BMI 30-39.9) E66.9 Active confirmed 794532455 Problem Non-seasonal allergic rhinitis due to other allergic errol er J30.89 Active confirmed 32378793 She is having a bit of a flare and was advised to use her Claritin and I started intranasal steroids. Problem Type 2 diabetes mellitus wit hout complication, without long-term current use of insulin E11.9 Active confirmed 418759637 Problem Non-seasonal allergic rhinitis, unspecified trigger J30.89 Active confirmed 29960733 Problem Body mass index [BMI]40.0-44.9, adult Z68.41 Ac tive confirmed 385713900 ALLERGIES Allergen (clinical drug ingredient) Drug/Non Drug Allergy do cumented on EMR Reaction Allergy Type Onset Date Status morphine Morphine Sulfate([facility] Code:[address]-47) head fe lt funny, passed out Drug Allergy Active Ortho Evra skin reaction Drug Allergy Active clarithromycin Biaxin Nausea/Vomiting Drug Allergy Act shruthi codeine Codeine Sulfate([facility] Code:[address]-70) hives/di ff. breathing Drug Allergy Active ENCOUNTERS from 1991 to 2021-08-13 Encounter Location Date Provider Diagnosis [place] [address] [facility] [phone] [place] [address] Aug, Leonardo Eaton IMMUNIZATIONS Vaccine Route Administration Date Status COVID-19 dose #2 given elsewhere Unspecified Unknown Apr 2020 Administered COVID-19 dose #1 given elsewhere Unspecified Unknown Apr 2020 Administered Influenza 6mo & up Fluzone IM Intramuscular Aug 21, 2018 Admi nistered SOCIAL HISTORY Tobacco Use: Social History Observation Description Date Details (start date - stop date) Former Smoker Sex Assigned At : Social History Observation Description Sex Assigned At Unknown Audit Question Answer Notes Total Score: 0 Interpretation: Alcohol Education Sexual Hx: Question Answer Notes Had sex in the last 12 months (vaginal, oral, or anal)? Yes LMP: 07/09/19 Have you ever had an STD? No Prevention Strategies discussed: Condoms with Men only Use protection? No Drug and Alcohol Question Answer Notes Total Score: 0 Interpretation: No problems reported Alcohol Screening: Question Answer Notes Points 0 Interpretation Negative BMI Care Goal Follow-Up Question Answer Notes Above Normal BMI Follow-Up Giving encouragement to exercise, Weight monitoring Tobacco Use: Question Answer Notes Are you a: former smoker former smoker quit Q uit 06/16/2019 Smoking Cessation Information Given 07/20/2020 How long has it been since you last smoked? 1-5 years REASON FOR REFERRAL No Information VITAL SIGNS No information MEDICATIONS Medication SIG (Take, Route, Frequency, Duration) Notes Start Da te End Date Status Loratadine 10 MG 1 tablet Orally Once a day a s needed for allergy symptoms for 30 Days Active Flonase 50 MCG/ACT 2 sprays in each nostril Nasally Once a day Active Atorvastatin Calcium 20 MG 1 tablet Orally Once a day Active Sertraline HCl 100 MG 2 tabs Orally Once a day Active hydrOXYzine HCl 10 MG 1 tab Orally bid Active Ibuprofen 600 MG 1 tablet with food or milk a s needed Orally Three times a day prn for 30 day(s) Oct, Active metFORMIN HCl ER 500 MG 1 tab Orally Daily Active Omeprazole 40 MG 1 cap orally once daily for 30 Active Ventolin HFA 108 (90 Base) MCG/ACT 2 puffs as needed Inhalation ayana ry 6 hrs Active Lisinopril 2.5 MG 1 tab(s) Orally Once a day Active Drisdol 37552 UNIT 1 capsule Orally weekly for 30 Days May, Active lamoTRIgine 150 MG 2 tablets Orally Once a day Active Gabapentin 300 MG 1 capsule Orally before bedtime for 30 day(s) Mar, Active PROCEDURES No Information RESULTS No Results REASON FOR VISIT No Information MEDICAL (GENERAL) HISTORY Type Description Date Medical History hyperlipidemia 2B Medical History PCOS Medical History Asthma, execise-induced Medical History Bipolar Disorder Medical History hypertension, essential Medical History vitamin D deficiency/didn't finish 50,000 units of vit.,given to her 3months ago-today01/28/14 Medical History LEIGH ANN, severe-11/12/20 HST AHI 2 5, SaO2 to 83%-was on CPAP but removed 2 non-compliance Medical History T2DM NID Surgical History Tonsils and Adenoids Surgical History Appendectomy Surgical History Tib/Fib Fx-left leg Surgical History tymponostomy, tubes as child Surgical History BTB autograft and ACl reconstruction-Dr. Guallpa 08/29/2018 Hospitalization History No Hospitalization history informati on Goals Section No Information Health Concerns No Information MEDICAL EQUIPMENT No Information MENTAL STATUS No Information FUNCTIONAL STATUS No Information ASSESSMENTS No Information PLAN OF TREATMENT Medication Medication Name Sig Start Date Stop Date hydrOXYzine HCl 10 MG 1 tab Orally bid lamoTRIgine 150 MG 2 tablets Orally Once a day Sertraline HCl 100 MG 2 tabs Orally Once a day Atorvastatin Calcium 20 MG 1 tablet Orally Once a day Loratadine 10 MG 1 tablet Orally Once a day a s needed for allergy symptoms for 30 Days Flonase 50 MCG/ACT 2 sprays in each nostril Nasally Once a day Ventolin HFA 108 (90 Base) MCG/ACT 2 puffs as needed Inhalation every 6 hrs metFORMIN HCl ER 500 MG 1 tab Orally Daily Next Appt Details Provider Name:Coni Diazmarlyn, 10-22 01:45:00 PM, [address] [place] [address], , [place], [address], Insurance Providers Payer Name Payer Address Payer Phone Insured Name Patient Relati onship to Insured Coverage Start Date Coverage End Date [facility] [place] [address] [facility] [id number] MILI WHITT self
--- OUTSIDE RECORDS SUMMARY | 2021-08-18 08:31 | CCD ---
Author Author [facility] Organization [facility] Address Unknown Phone Unavailable Care Team Providers Care Producer Arborist Manager Name Role Phone Leonardo Eaton Unavailable PROBLEMS Type Condition ICD9-CM Code LNO28-HR Code Onset Dates Condition S tatus W/U Status Risk SNOMED Code Notes Problem Bipolar disorder, unspecified F31.9 Active confirm ed [id number] She is managed by mental health with sertraline and lamotrigine. 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 Most recent lipids in November 2017 were suboptimal but this is managed by her tool design engineer. 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 Problem PCOS (polycystic ovarian syndrome) E28.2 Activ e confirmed 18574315 Problem LEIGH ANN (obstructive sleep apnea) G47.33 Active confirm ed 40715515 She apparently is treated for that. Problem Exercise-induced asthma J45.990 Active confirmed 84335163 Problem Bilateral carpal tunnel syndrome G56.03 Active conf irmed 83827841 Problem Gastroesophageal reflux disease, esophagitis pre sence not specified K21.9 Active confirmed 016433183 She is on omep razole therapy with controlled symptoms. Problem History of nicotine use Z87.891 Active confirmed 819970017 Problem Obesity (BMI 30-39.9) E66.9 Active confirmed 841575397 Problem Non-seasonal allergic rhinitis due to other allergic errol er J30.89 Active confirmed 77670687 She is having a bit of a flare and was advised to use her Claritin and I started intranasal steroids. Problem Type 2 diabetes mellitus wit hout complication, without long-term current use of insulin E11.9 Active confirmed 890246524 Problem Non-seasonal allergic rhinitis, unspecified trigger J30.89 Active confirmed 09296633 Problem Body mass index [BMI]40.0-44.9, adult Z68.41 Ac tive confirmed 671419177 ALLERGIES Allergen (clinical drug ingredient) Drug/Non Drug Allergy do cumented on EMR Reaction Allergy Type Onset Date Status morphine Morphine Sulfate([facility] Code:[address]-92) head fe lt funny, passed out Drug Allergy Active Ortho Evra skin reaction Drug Allergy Active clarithromycin Biaxin Nausea/Vomiting Drug Allergy Act shruthi codeine Codeine Sulfate([facility] Code:[address]-72) hives/di ff. breathing Drug Allergy Active ENCOUNTERS from 1990 to 2021-08-11 Encounter Location Date Provider Diagnosis [place] [address] [facility] [phone] [place] [address] 29 Jul, 2021 Leonardo Eaton Type 2 diabetes mellitus wit hout complication, without long-term current use of insulin E11.9 ; Preoperative clearance Z01.818 ; LEIGH ANN (obstructive sleep apnea) G47.33 ; Exercise-induced asthma J45.990 ; Bipolar disorder, unspecified F31.9 ; PCOS (polycystic ovarian syndrome) E28.2 ; Mixed hyperlipidemia E78.2 ; Essential hypertension I10 ; Non-seasonal allergic rhinitis due to other allergic trigger J30.89 and History of nicotine use Z87.891 IMMUNIZATIONS Vaccine Route Administration Date Status COVID-19 dose #2 given elsewhere Unspecified Unknown Dec Administered COVID-19 dose #1 given elsewhere Unspecified Unknown Dec Administered Influenza 6mo & up Fluzone IM [...] REASON FOR REFERRAL No Information VITAL SIGNS Weight 211 lbs Jul, Weight-kg 95.71 kg Jul, Height 61.5 in Jul, BMI 39.22 kg/m2 Jul, Heart Rate 82 /min Jul, Respiratory Rate 20 /min Jul, Temperature 97.6 degrees Fahrenheit Jul, Oximetry 100% Jul, Blood pressure systolic 124 mm Hg Jul, Blood pressure diastolic 70 mm Hg Jul, MEDICATIONS Medication SIG (Take, Route, Frequency, Duration) [...] tab(s) Orally Once a day Active Drisdol 97911 UNIT 1 capsule Orally weekly for 30 Days May, Active lamoTRIgine 150 MG 2 tablets Orally Once a day Active Gabapentin 300 MG 1 capsule Orally before bedtime for 30 day(s) Mar, Active PROCEDURES No Information RESULTS Component Value Reference Range CBC with Differential Reviewed date:08/09/2021 18:23:26 Interpretation: Performing [facility] [address] [facility] [address] , ,[place] [address] WHITE BLOOD COUNT 9.1 4.0-10.0 RED BLOOD COUNT 4.70 4.00-5.40 HEMOGLOBIN 13.9 12.0-15.5 HEMATOCRIT 42.3 36.0-47.0 MEAN CORPUSCULAR VOLUME 90.0 80.0-96.0 MEAN CORPUSCULAR HEMOGLOBIN 29.6 27.0-33.0 MEAN CORPUSCULAR HGB CONC 32.9 32.0-36.5 RED CELL DISTRIBUTION WIDTH 12.2 11.5-14.5 PLATELET COUNT, AUTOMATED 230 150-450 NEUTROPHILS % 57.6 36.0-66.0 LYMPH % 35.7 24.0-44.0 MONO % 5.4 2.0-8.0 EOS % 0.7 0.0-3.0 BASO % 0.3 0.0-1.0 NEUTROPHILS # 5.2 1.5-8.5 LYMPH # 3.2 1.5-5.0 MONO # 0.5 0.0-0.8 EOS # 0.1 0.0-0.5 BASO # 0.0 0.0-0.2 HEMOGLOBIN A1c Reviewed date:08/09/2021 18:23:23 Interpretation: Performing Lab:[facility] [address] [place] [address] , ,[place] [address] HEMOGLOBIN A1c 5.8 ESTIMATED AVERAGE GLUCOSE 120 60-110 PT & APTT Reviewed date:08/09/2021 18:23:28 Interpretation: Performing Lab:[facility] [address] [facility] [address] , ,[place] [address] PROTHROMBIN TIME 13.9 12.7-14.5 INR 1.03 PARTIAL THROMBOPLASTIN TIME 35.0 25.9-37.0 NT-PRO BNP Reviewed date:08/10/2021 17:54:56 Interpretation: Performing Lab:[facility] [address] [facility] [address] , ,[place] [address] NT-PRO BNP 47 <125 Comprehensive Metabolic Profile (CMP) Reviewed date:08/10/2021 17:54:54 Interpretation: Performing Lab:[facility] [address] [facility] [address] , ,[place] [address] GLUCOSE, FASTING 100 70-100 BLOOD UREA NITROGEN 7 7-18 CREATININE FOR GFR 0.61 0.55-1.30 GLOMERULAR FILTRATION RATE > 60.0 >60 SODIUM LEVEL 141 136-145 POTASSIUM SERUM 3.9 3.5-5.1 CHLORIDE LEVEL 108 98-107 CARBON DIOXIDE LEVEL 28 21-32 CALCIUM LEVEL 8.8 8.5-10.1 AST/SGOT 12 7-37 ALT/SGPT 28 12-78 ALKALINE PHOSPHATASE 75 45-117 BILIRUBIN,TOTAL 0.2 0.2-1.0 TOTAL PROTEIN 7.0 6.4-8.2 ALBUMIN 3.6 3.2-5.2 ALBUMIN/GLOBULIN RATIO 1.1 1.2-2.2 FREE T4 & TSH PANEL Reviewed date:08/10/2021 17:54:51 Interpretation: Performing Lab:[facility] [address] [facility] [address] , ,[place] [address] THYROID STIMULATING HORMONE 2.130 0.358-3.740 FREE T4 0.71 0.76-1.46 REASON FOR VISIT Preo p clearance for open carpal tunnel release right side- Dr. Norwood- [facility]-Local, Skye@ [phone] fax # [phone] DX: G56.03 MEDICAL (GENERAL) HISTORY Type Description Date Medical [...] No Information FUNCTIONAL STATUS No Information ASSESSMENTS Encounter Date Diagnosis Assessment Notes Treatment Notes Treatm ent Clinical Notes Jul, Type 2 diabetes mellitus wit hout complication, without long-term current use of insulin (ICD-10 - E11.9) Jul, Preoperative clearance (ICD-10 - Z01.818) On 08/09/21 the patient had a stable CBCD, CMP and PT/APTT. On 08/04/21 the patient's EKG revealed normal sinus rhythm at 80 beats per minute, no hypertrophy, normal axis and no repolarization abnormality. On the AM of the surgery, the patient will take NO MEDICATIONS. The patient was cleared by her primary Inspector Cl[employer], [facility] on 08/04/21. The patient is currently medically optimized for the above surgery. By the modified RCRI, the patient's 30 day MACE risk is 6%. The patient wishes to assume this risk and proceed with the above surgery. Given unpalliated LEIGH ANN, would attempt to minimize post-operative sedation. Jul, LEIGH ANN (obstructive sleep apnea) (ICD-10 - G47.33) 06/29/21 Dr. Balbuena ([place]) correspondence that patient was no longer using her CPAP against medical advice. Jul, Exercise-induced asthma (ICD-10 - J45.990) Stable on rare alb MDI Jul, Bipolar disorder, unspecified (ICD-10 - F31.9) Jul, PCOS (polycystic ovarian syndrome) (ICD-10 - E28 .2) Jul, Mixed hyperlipidemia (ICD-10 - E78.2) Jul, Essential hypertension (ICD-10 - I10) Jul, Non-seasonal allergic rhinit is due to other allergic trigger (ICD- 10 - J30.89) Jul, History of nicotine use (ICD-10 - Z87.891) PLAN OF TREATMENT Medication Medication Name Sig [...] ER 500 MG 1 tab Orally Daily Treatment Notes Assessment Notes Clinical Notes Preoperative clearance On 08/09/21 the p atient had a stable CBCD, CMP and PT/APTT. On 08/04/21 the patient's EKG revealed normal sinus rhythm at 80 beats per minute, no hypertrophy, normal axis and no repolarization abnormality. On the AM of the surgery, the patient will take NO MEDICATIONS. The patient was cleared by her primary Inspector Cl[employer] Sunglasses, [place] on 08/04/21. The patient is currently medically optimized for the above surgery. By the modified RCRI, the patient's 30 day MACE risk is 6%. The patient wishes to assume this risk and proceed with the above surgery.Given unpalliated LEIGH ANN, would attempt to minimize post-operativ e sedation. LEIGH ANN (obstructive sleep apnea) 06/29/21 Dave Balbuena ([place]) correspondence that patient was no longer using her CPAP against medical advice. Exercise-induced asthma Stable on rare a lb MDI Next Appt Details , BW NOW Reason: Provider Name:Coni Carpenter, 2021-0 10-22 01:45:00 PM, [address] [facility], , [place], [address], Insurance Providers Payer Name Payer Address Payer Phone Insured Name Patient Relati onship to Insured Coverage Start Date Coverage End Date [facility] [address] [facility] [address] MILI WHITT self
--- OUTSIDE RECORDS SUMMARY | 2021-08-18 08:31 | CCD | Continuity of Care Document ---
Author Author Raymon DON NP Organization Unknown Address [address] [place] [address] Phone [phone] Care Team Providers Care Combination Man Name Role Phone Shukri Velazquez RPA AUTM [phone] Diamond Gomez RPA-C AUTM Problems Active Problems Provider Date Bipolar disorder [...] r Date BD Uf Mini Pen Needle [id number] Use Once Daily 100units Ophelia Don NP [...] 5.7 Procedures Date Code Description Status 07/28/2021 84971 Office/Outpatient Established Mo d MDM 30-39 Min Completed 01/14/2021 [id number] Diabetic Foot Exam Completed Medical Devices Description [...] diabetes mellitus with hy perglycemia Shruti Don, FARM TRUCK DRIVER 07/28/2021 E78.2 Mixed hyperlipidemia Shruti wharton, FARM TRUCK DRIVER 07/28/2021 E66.01 Morbid (severe) obesity due to e xcess calories Shruti Don, FARM TRUCK DRIVER 07/28/2021 Z68.38 Body mass index [BMI] 38.0-38.9, adult Shruti Don, FARM TRUCK DRIVER 07/19/2021 E11.65 Type 2 diabetes mellitus with hy perglycemia Shruti Don, FARM TRUCK DRIVER 07/19/2021 E78.2 Mixed hyperlipidemia Shruti wahrton, FARM TRUCK DRIVER 07/19/2021 E66.01 Morbid (severe) obesity due to e xcess calories Shruti Don, FARM TRUCK DRIVER 07/19/2021 Z68.38 Body mass index [BMI] 38.0-38.9, adult Shruti Don NP Plan of Treatment Future Appointment(s):* 01/26/2022 3:30 pm - Shruti Don NP at DR. Lou Capone 07/28/2021 - Shruti Don NP* E11.65 Type [...] Date Shruti Don NP Created 0 [address] [facility] [address] [place] [id number] [phone]
--- OUTSIDE RECORDS SUMMARY | 2021-08-18 08:32 | CCD | Continuity of Care Document ---
Author Author Raymon DELACRUZ MD Organization Unknown Address [address] [place] [address] , [facility] [address] [place] [address] Phone [phone] Care Team Providers Care Director Sales Training Name Role Phone AUTM Unavailable Diamond Gomez AUTM [phone] Problems Active Problems Provider Date Type 2 diabetes mellitus Shivam Delacruz MD Onset: 04/27/20 21 Social History Type Date Description Comments Sex [...] Available Procedures Date Code Description Status 07/08/2021 56691 Office/Outpatient Established Mo d MDM 30-39 Min Completed 06/03/2021 07284 Office/Outpatient Established Mo d MDM 30-39 Min Completed 04/27/2021 82086 Office/Outpatient New Moderate M DM 45-59 Minutes Completed 04/06/2021 16254 Measure Blood Oxygen Level Claire nuous Overnight Monitor Completed 02/15/2021 13400 Office/Outpatient Established Lo w MDM 20-29 Min Completed Medical Devices Description No Information Available Encounters Type Date Location Provider Dx Diagnosis Office Visit 07/08/2021 1:30p [facility] Shivam Delacruz MD G56.03 Carpal tunnel syndrome, bilateral upper limbs Office Visit 06/03/2021 9:15a [facility] Shivam Delacruz MD G56.03 Carpal tunnel syndrome, bilateral upper limbs Office Visit 04/27/2021 1:45p [facility] Shivam Delacruz MD G56.03 Carpal tunnel syndrome, bilateral upper limbs Office Visit 02/15/2021 2:45p [facility] Von Lee, N.P. G47.33 Obstructive sleep [...] 12:45 pm - Beatriz Lee N.P. at [facility] 07/08/2021 - Shivam Delacruz MD* G56.03 Carpal tunnel syndrome, bilateral upper limbs Functional Status Description No Information Available Mental Status Mental Condition Comment Date Status None Active Referrals Refer to Dr Reason for Referral Status Appt Date Beatriz Lee F.N.Speedy ASTHMA J45.909 & LEIGH ANN G47.33 [facility] [address] [place] [address] [phone] Jose Sahu M.D. NCS/EMG bilateral upper extr emities assess for CTS, possible cubital tunnel or cervical radiculopathy Closed 05/11/2021 [facility], [address] [place] [address] [phone] Beatriz Lee F.NJulieta asthma/leigh ann Scheduled 02/15/2021 [facility] [address] [place], [place] [address] [phone]"
--- OUTSIDE RECORDS SUMMARY | 2021-08-18 08:32 | CCD | Continuity of Care Document ---
Author Author Raymon DELACRUZ MD Organization Unknown Address [address] [place] [address] , [facility] 2 [place] [address] Phone [phone] Care Team Providers Care Center Human Resources Manager Name Role Phone Noe Randi Lomeli P.A.-C AUTM [phone] AUTM Unavailable Problems Active Problems Provider Date Type 2 [...] a former smoker hx of 1 ppd Allergies, Adverse Reactions, Alerts Active Allergies Criticality Reaction | Severity Comments [...] Available Vital Signs Date Vital Result Comment 04/27/2021 1:41pm Body Temperature 97.0 F 02/15/2021 2:26pm BP Systolic 126 mmHg BP Diastolic 78 mmHg Heart Rate 79 /min O2 % BldC Oximetry 98 % Height 61 inches 5'1" Weight 210.38 lb BMI (Body Mass Index) 39.7 kg/m2 [place] Body Weight 105 lb Weight 95.426 kg BSA (Body Surface Area) 1.93 m2 Results Description No Information Available Procedures Date Code Description Status 06/03/2021 21240 Office/Outpatient Established Mo d MDM 30-39 Min Completed 04/27/2021 04640 Office/Outpatient New Moderate M DM 45-59 Minutes Completed 04/06/2021 42400 Measure Blood Oxygen Level Claire nuous Overnight Monitor Completed 02/15/2021 25188 Office/Outpatient Established Lo w MDM 20-29 Min Completed Medical Devices Description No Information Available Encounters Type Date Location Provider Dx Diagnosis Office Visit 06/03/2021 9:15a [facility] Shivam Delacruz MD G56.03 Carpal tunnel syndrome, bilateral upper limbs Office Visit 04/27/2021 1:45p [facility] Shivam Delacruz MD G56.03 Carpal tunnel syndrome, bilateral upper limbs Office Visit 02/15/2021 2:45p [facility] Von Lee, N.P. G47.33 Obstructive sleep apnea (adult) (pediatr ic) Z71.2 Person consulting for explan ation of exam or test findings Assessments Date Code Description Provider 06/03/2021 G56.03 Carpal tunnel syndrome, bilatera l upper limbs Shivam Delacruz MD 04/27/2021 G56.03 Carpal tunnel syndrome, janeta l upper limbs Shivam Delacruz MD 04/06/2021 G47.33 Obstructive sleep apnea (adult) (pediatric) Nocturnal Oximetry 02/15/2021 G47.33 Obstructive sleep apnea (adult) (pediatric) Beatriz Lee NJulieta 02/15/2021 Z71.2 Person consulting fo r explanation of examination or test findings Beatriz Lee NJulieta Plan of Treatment Future Appointment(s):* 07/08/2021 1:15 pm - Shivam Delacruz MD at [facility] * 06/16/2021 3:15 pm - Beatriz Lee NJulieta at [facility] 06/03/2021 - Shivam Delacruz MD* G56.03 Carpal tunnel syndrome, bilateral upper limbs Functional Status Description No Information Available Mental Status Mental Condition Comment Date Status None Active Referrals Refer to Dr Reason for Referral Status Appt Date Jose Sahu M.D. NCS/EMG bilateral upper extr emities assess for CTS, possible cubital tunnel or cervical radiculopathy Closed 05/11/2021 [facility], [address] [place] [address] [phone] Beatriz Lee F.N.PRaf asthma/dillon Scheduled 02/15/2021 [facility] [address] [place], [place] [address] [phone]
--- OUTSIDE RECORDS SUMMARY | 2021-08-18 08:32 | CCD | Continuity of Care Document ---
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 La Hall NP Onset: 04/27/2017 Cluster B personality disorder La Hall NP Onset: Social History Type Date Description Comments Sex Unknown Allergies and adverse reactions Active Allergies Criticality Reaction | Severity Comments Date Codeine Unable to assess criticality HIVES 04/12/2017 Clarithromycin Unable to assess criticality Nausea and Vomiting 04/12/2017 Morphine Liposomal Unable to assess criticality HALLUCINATIONS 04/12/2017 Ethinyl Estradiol Unable to assess criticality RASH, SKIN REACTION 04/12/2017 NKFA Unable to assess criticality 04/12/2017 NKEA Unable to assess criticality 04/12/2017 Medications Active Medications SIG Qnty Indications Ordering Provide r Date Hydroxyzine HCL 10mg Tablets 1/2 tab by mouth twice a day as needed 30tabs Ayah Matthew Sertraline HCL 100mg Tablets 2 tabs by mouth every day every evening 60tabs Adonis Schneider MD Atorvastatin Calcium 20mg Tablets Take One Tablet By Mouth Every Day Unknown Lamotrigine 150mg Tablets 1 tab by mouth twice a day 60tabs Adonis Schneider MD Loratadine 10mg Tablets Take One Tablet By Mouth Daily Unknown Lisinopril 2.5mg Tablets Take One Tablet By Mouth Every Day Unknown Omeprazole 40mg Capsules DR Take One Capsule By Mouth Every Morning Unknown 0 Vitamin D (Ergocalciferol) 47771Fhjm Capsules Take One Capsule By Mouth Once Weekly Unk nown Ventolin HFA 108(90Base) mcg/Act A erosol Inhale 2 Puffs By Mouth Every 4 To 6 Hours as Needed For For Shortness Unknown Immunizations Description No Information Available Vital Signs Date Vital Result Comment 04/12/2017 11:09am BP Systolic Sitting 114 mmHg BP Diastolic Sitting 76 mmHg Heart Rate 70 /min Body Temperature 97.9 F Respiratory Rate 16 /min O2 % BldC Oximetry 99 % Weight 211.00 lb Weight 95.710 kg Height 61 inches 5'1" BMI (Body Mass Index) 39.9 kg/m2 BSA (Body Surface Area) 1.93 m2 Results Description No Information Available Procedures Date Code Description Status 07/09/2021 22682 Office/Outpatient Established Mo d MDM 30-39 Min Completed 06/18/2021 65705 Office/Outpatient Established Mo d MDM 30-39 Min Completed 02/25/2021 64501 Office/Outpatient Established Mo d MDM 30-39 Min Completed Medical Devices Description No Information Available Encounters Type Date Location Provider Dx Diagnosis Office Visit 07/09/2021 4:20p [facility] Jules Oglesby PA-C 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 F60.3 Borderline personality disor monika Z79.899 Other emt intermediate (current) dr hampton therapy Assessments Date Code Description Provider 07/09/2021 F19.24 Other psychoactive substance dep endence with psychoactive schaefer Jules Oglesby PA-C 07/09/2021 F60.3 Borderline personality disorder Jules Oglesby PA-C 07/09/2021 Z79.899 Other prison (current) drug t herapy Jules Oglesby PA-C 06/18/2021 F19.24 Other psychoactive substance dep endence with psychoactive schaefer Jules Oglesby PA-C 06/18/2021 F60.3 Borderline personality disorder Jules Oglesby PA-C 02/25/2021 F19.24 Other psychoactive substance dep endence with psychoactive schaefer Jules Oglesby PA-C 02/25/2021 F60.3 Borderline personality disorder Jules Oglesby PA-C Plan of Treatment Future Appointment(s):* 07/30/2021 12:40 pm - [facility]-C [facility] * 09/20/2021 2:20 pm - Jules [facility]les[facility]-C at [facility] Functional Status Description No Information Available Mental Status Description No Information Available Referrals Description No Information Available
--- OUTSIDE RECORDS SUMMARY | 2021-08-18 08:32 | CCD ---
"Continuity of Care Document (CCD) Created on: 07/08/2021 Raymon Llamas External Reference #: [id number] : 1990 Sex: Female Author Author Raymon DELACRUZ MD Organization Unknown Address [address] [place] [address] , [facility] [address] [place] [address] Phone [phone] Care Team Providers Care Facility Sales And Admin Name Role Phone AUTM Unavailable Diamond Gomez [...] Available Procedures Date Code Description Status 07/08/2021 12938 Office/Outpatient Established Mo d MDM 30-39 Min Completed 06/03/2021 87888 Office/Outpatient Established Mo d MDM 30-39 Min Completed 04/27/2021 77197 Office/Outpatient New Moderate M DM 45-59 Minutes Completed 04/06/2021 93832 Measure Blood Oxygen Level Claire nuous Overnight Monitor Completed 02/15/2021 29103 Office/Outpatient Established Lo w MDM 20-29 Min Completed Medical Devices Description No Information Available Encounters Type Date Location Provider Dx Diagnosis Office Visit 07/08/2021 1:30p [facility] Shivam Delacruz MD G56.03 Carpal tunnel syndrome, bilateral upper limbs Office Visit 06/03/2021 9:15a [facility] Shivam Delacruz MD G56.03 Carpal tunnel syndrome, bilateral upper limbs Office Visit 04/27/2021 1:45p [facility] Shivam Delacruz MD G56.03 Carpal tunnel syndrome, bilateral upper limbs Office Visit 02/15/2021 2:45p [facility] Von Lee, N.P. G47.33 Obstructive sleep [...] 12:45 pm - Beatriz Lee N.P. at [facility] 07/08/2021 - Shivam Delacruz MD* G56.03 Carpal tunnel syndrome, bilateral upper limbs Functional Status Description No Information Available Mental Status Mental Condition Comment Date Status None Active Referrals Refer to Dr Reason for Referral Status Appt Date Beatriz Lee F.N.Speedy ASTHMA J45.909 & LEIGH ANN G47.[address] [facility] [address] [place] [address] [phone] Jose Sahu M.D. NCS/EMG bilateral upper extr emities assess for CTS, possible cubital tunnel or cervical radiculopathy Closed 05/11/2021 [facility], [address] [place] [address] [phone] Beatriz Lee F.NJulieta asthma/leigh ann Scheduled 02/15/2021 [facility] [address] [place], [place] [address] [phone]"
--- OUTSIDE RECORDS SUMMARY | 2021-08-18 08:32 | CCD | Continuity of Care Document ---
Author Author Raymon DELACRUZ MD Organization Unknown Address [address] [place] [address] , [facility] 2 [place] [address] Phone [phone] Care Team Providers Care Office Correspondent Name Role Phone Noe Randi Lomeli P.A.-C AUTM [phone] AUTM Unavailable Problems Active Problems Provider Date [...] lb BMI (Body Mass Index) 39.7 kg/m2 [place] Body Weight 105 lb Weight 95.426 kg BSA (Body Surface Area) 1.93 m2 Results Description No Information Available Procedures Date Code Description Status 06/03/2021 51223 Office/Outpatient Established Mo d MDM 30-39 Min Completed 04/27/2021 75794 Office/Outpatient New Moderate M DM 45-59 Minutes Completed 04/06/2021 72712 Measure Blood Oxygen Level Claire nuous Overnight Monitor Completed 02/15/2021 57325 Office/Outpatient Established Lo w MDM 20-29 Min Completed Medical Devices Description No Information Available Encounters Type Date Location Provider Dx Diagnosis Office Visit 06/03/2021 9:15a [facility] Shivam Delacruz MD G56.03 Carpal tunnel syndrome, bilateral upper limbs Office Visit 04/27/2021 1:45p [facility] Shivam Delacruz MD G56.03 Carpal tunnel syndrome, bilateral upper limbs Office Visit 02/15/2021 2:45p [facility] Von Lee, N.P. G47.33 Obstructive sleep apnea (adult) (pediatr ic) Z71.2 Person consulting for explan ation of exam or test findings Assessments Date Code Description Provider 06/03/2021 G56.03 Carpal tunnel syndrome, bilatera l upper limbs Shivam Delacruz MD 04/27/2021 G56.03 Carpal tunnel syndrome, paolaatera l upper limbs Shivam Delacruz MD 04/06/2021 G47.33 Obstructive sleep apnea (adult) (pediatric) Nocturnal Oximetry 02/15/2021 G47.33 Obstructive sleep apnea (adult) (pediatric) Beatriz Lee NRafPRaf 02/15/2021 Z71.2 Person consulting fo r explanation of examination or test findings Beatriz Lee NJulieta Plan of Treatment Future Appointment(s):* 06/16/2021 3:15 pm - Beatriz Lee NJulieta at [facility] 06/03/2021 - Shivam Delacruz MD* G56.03 Carpal tunnel syndrome, bilateral upper limbs Functional Status Description No Information Available Mental Status Mental Condition Comment Date Status None Active Referrals Refer to Dr Reason for Referral Status Appt Date Jose Sahu M.D. NCS/EMG bilateral upper extr emities assess for CTS, possible cubital tunnel or cervical radiculopathy Closed 05/11/2021 [facility], [address] [place] [address] [phone] Beatriz Lee, Saritha.N.P. asthma/dillon Scheduled 02/15/2021 [facility] [address] [place], [place] [address] [phone]
--- OUTSIDE RECORDS SUMMARY | 2021-08-18 08:32 | CCD | Continuity of Care Document ---
Author Author Raymon DELACRUZ MD Organization Unknown Address [address] [place] [address] , [facility] 2 [place] [address] Phone [phone] Care Team Providers Care Director Of Operations For Therapy Name Role Phone AUTM Unavailable Diamond Gomez [...] Available Procedures Date Code Description Status 07/08/2021 77880 Office/Outpatient Established Mo d MDM 30-39 Min Completed 06/03/2021 12308 Office/Outpatient Established Mo d MDM 30-39 Min Completed 04/27/2021 16998 Office/Outpatient New Moderate M DM 45-59 Minutes Completed 04/06/2021 27758 Measure Blood Oxygen Level Claire nuous Overnight Monitor Completed 02/15/2021 15984 Office/Outpatient Established Lo w MDM 20-29 Min Completed Medical Devices Description No Information Available Encounters Type Date Location Provider Dx Diagnosis Office Visit 07/08/2021 1:30p [facility] Shivam Delacruz MD G56.03 Carpal tunnel syndrome, bilateral upper limbs Office Visit 06/03/2021 9:15a [facility] Shivam Delacruz MD G56.03 Carpal tunnel syndrome, bilateral upper limbs Office Visit 04/27/2021 1:45p [facility] Shivam Delacruz MD G56.03 Carpal tunnel syndrome, bilateral upper limbs Office Visit 02/15/2021 2:45p [facility] Von Lee, N.P. G47.33 Obstructive sleep [...] 12:45 pm - Beatriz Lee N.P. at [facility] 07/08/2021 - Shivam Delacruz MD* G56.03 Carpal tunnel syndrome, bilateral upper limbs Functional Status Description No Information Available Mental Status Mental Condition Comment Date Status None Active Referrals Refer to Dr Reason for Referral Status Appt Date Beatriz Lee F.N.Speedy ASTHMA J45.909 & LEIGH ANN G47.33 Created [facility] [address] [place] [address] [phone] Jose Sahu M.D. NCS/EMG bilateral upper extr emities assess for CTS, possible cubital tunnel or cervical radiculopathy Closed 05/11/2021 [facility] Neurology, [address] [place] [address] [phone] Beatriz Lee F.NJulieta asthma/leigh ann Scheduled 02/15/2021 [facility] [address] [place], [place] [address] [phone]"
--- OUTSIDE RECORDS SUMMARY | 2021-08-18 08:32 | CCD | Continuity of Care Document ---
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 La Hall NP Onset: 04/27/2017 Cluster B personality disorder La Hall NP Onset: Social History Type Date Description Comments Sex Unknown Allergies, Adverse Reactions, Alerts Active Allergies Criticality [...] Every Morning Unknown 0 Vitamin D (Ergocalciferol) 86177Wtgw Capsules Take One Capsule By Mouth Once [...] Information Available Procedures Date Code Description Status 06/18/2021 27762 Office/Outpatient Established Mo d MDM 30-39 Min Completed 02/25/2021 33353 Office/Outpatient Established Mo d MDM 30-39 Min Completed Medical Devices Description No Information Available Encounters Type Date Location Provider Dx Diagnosis Office Visit 06/18/2021 2:40p [facility] Jules Oglesby PA-C 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 F60.3 Borderline personality disor monika Assessments Date Code Description Provider 06/18/2021 F19.24 Other psychoactive substance dep endence with psychoactive schaefer Jules Oglesby PA-C 06/18/2021 F60.3 Borderline personality disorder Jules Oglesby PA-C 02/25/2021 F19.24 Other psychoactive substance dep endence with psychoactive schaefer Jules Oglesby PA-C 02/25/2021 F60.3 Borderline personality disorder Jules Oglesby PA-C Plan of Treatment No Information Available Functional Status Description No Information Available Mental Status Description No Information Available Referrals Description No Information Available
--- OUTSIDE RECORDS SUMMARY | 2021-08-18 08:32 | CCD | Continuity of Care Document ---
Author Author Raymon OGLESBY PA-C Organization Unknown Address [address] [address] Phone [phone] Problems Active Problems Provider Date Cannabis dependence [...] Every Morning Unknown 0 Vitamin D (Ergocalciferol) 69091Ybvv Capsules Take One Capsule By Mouth Once [...] Available Procedures Date Code Description Status 07/09/2021 97306 Office/Outpatient Established Mo d MDM 30-39 Min Completed 06/18/2021 73053 Office/Outpatient Established Mo d MDM 30-39 Min Completed 02/25/2021 25037 Office/Outpatient Established Mo d MDM 30-39 Min Completed Medical Devices Description No Information Available Encounters Type Date Location Provider Dx Diagnosis Office Visit 07/09/2021 4:20p [facility] Jules Oglesby PA-C 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
--- OUTSIDE RECORDS SUMMARY | 2021-08-18 08:32 | CCD | Continuity of Care Document ---
Author Author Raymon OGLESBY PA-C Organization Unknown Address [address] [address] Phone [phone] Problems Active Problems Provider Date Cannabis dependence [...] Every Morning Unknown 0 Vitamin D (Ergocalciferol) 89833Oeyf Capsules Take One Capsule By Mouth Once [...] Available Procedures Date Code Description Status 07/09/2021 50162 Office/Outpatient Established Mo d MDM 30-39 Min Completed 06/18/2021 13975 Office/Outpatient Established Mo d MDM 30-39 Min Completed 02/25/2021 27641 Office/Outpatient Established Mo d MDM 30-39 Min Completed Medical Devices Description No Information Available Encounters Type Date Location Provider Dx Diagnosis Office Visit 07/09/2021 4:20p [facility] Jules Oglesby PA-C 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
--- OUTSIDE RECORDS SUMMARY | 2021-08-18 08:32 | CCD | Continuity of Care Document ---
Author Author Raymon DELACRUZ MD Organization Unknown Address [address] [place] [address] , [facility] 2 [place] [address] Phone [phone] Care Team Providers Care Restaurant Assistant Name Role Phone AUTM Unavailable Diamond Gomez [...] Available Procedures Date Code Description Status 07/08/2021 43299 Office/Outpatient Established Mo d MDM 30-39 Min Completed 06/03/2021 21516 Office/Outpatient Established Mo d MDM 30-39 Min Completed 04/27/2021 68236 Office/Outpatient New Moderate M DM 45-59 Minutes Completed 04/06/2021 11924 Measure Blood Oxygen Level Claire nuous Overnight Monitor Completed 02/15/2021 54575 Office/Outpatient Established Lo w MDM 20-29 Min Completed Medical Devices Description No Information Available Encounters Type Date Location Provider Dx Diagnosis Office Visit 07/08/2021 1:30p [facility] Shivam Delacruz MD G56.03 Carpal tunnel syndrome, bilateral upper limbs Office Visit 06/03/2021 9:15a [facility] Shivam Delacruz MD G56.03 Carpal tunnel syndrome, bilateral upper limbs Office Visit 04/27/2021 1:45p [facility] Shivam Delacruz MD G56.03 Carpal tunnel syndrome, bilateral upper limbs Office Visit 02/15/2021 2:45p [facility] Von Lee, N.P. G47.33 Obstructive sleep [...] 12:45 pm - Beatriz Lee N.P. at [facility] 07/08/2021 - Shivam Delacruz MD* G56.03 Carpal tunnel syndrome, bilateral upper limbs Functional Status Description No Information Available Mental Status Mental Condition Comment Date Status None Active Referrals Refer to Dr Reason for Referral Status Appt Date Beatriz Lee F.N.Speedy ASTHMA J45.909 & LEIGH ANN G47.33 [facility] [address] [place] [address] [phone] Jose Sahu M.D. NCS/EMG bilateral upper extr emities assess for CTS, possible cubital tunnel or cervical radiculopathy Closed 05/11/2021 [facility] Neurology, [address] [place] [address] [phone] Beatriz Lee F.NJulieta asthma/leigh ann [facility]uled [facility] [address] [place], [place] [address] [phone]"
--- OUTSIDE RECORDS SUMMARY | 2021-08-18 08:32 | CCD ---
Author Author [facility] Organization [facility] Address Unknown Phone Unavailable Care Team Providers Care Software Engineering Project Manager Name Role Phone Randi Liu Unavailable PROBLEMS Type Condition ICD9-CM Code [id number] Code Onset Dates Condition S tatus W/U Status Risk SNOMED Code Notes Problem Asthma J45.909 Active confirmed 108754282 Problem Urge incontinence N39.41 Active confirmed 87 486423 Problem Obesity E66.9 Active confirmed 672565285 Problem Irregular menstrual cycle N92.6 Active confirmed 78693810 Problem Mastodynia N64.4 Active confirmed 73736119 Problem 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 Problem ADD (attention deficit disorder) without hyperactivity F98.8 Active confirmed 93304166 Problem Mixed hyperlipidemia E78.2 Active confirmed 751557989 She is on atorvastatin. 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 Problem Bipolar disorder, unspecified F31.9 Active confirm ed 69404748 She is managed by mental health with sertraline and lamotrigine. Problem Gastroesophageal reflux disease, esophagitis pre sence not specified K21.9 Active confirmed 508725515 She is on omep razole therapy with controlled symptoms. Problem Obesity (BMI 30-39.9) E66.9 Active confirmed 472553672 Problem Smoking F17.200 Active confirmed 79515464 Problem Hyperlipidemia, unspecified hyperlipidemia type E7 8.5 Active confirmed 87139678 Problem PCOS (polycystic ovarian syndrome) E28.2 Activ e confirmed 13611528 Problem Cigarette smoker F17.210 Active confirmed 65 282371 She has been repeatedly advised to quit smoking. Problem Exercise-induced asthma J45.990 Active confirmed 97519426 Problem LEIGH ANN (obstructive sleep apnea) G47.33 Active confirm ed 89701125 She apparently is treated for that. Problem Type 2 diabetes mellitus wit hout complication, without long-term current use of insulin E11.9 Active confirmed 396674001 Problem Encounter for routine gynecological examination Z0 1.419 Active confirmed 410162506429742 Problem Morbid (severe) obesity due to excess calories E66 .01 Active confirmed 280872047 Problem Paresthesia of skin R20.2 Active confirmed 39130589 Problem Anxiety F41.9 Active confirmed 19641270 Problem Bilateral carpal tunnel syndrome G56.03 Active conf irmed 89116208 Problem Essential hypertension I10 Active confirmed 59395013 This is well- controlled with her current low-dose lisinopril. 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 breathing Drug Allergy Active ENCOUNTERS from 1991 to 2021-05-28 Encounter Location Date Provider Diagnosis [place] [address] [facility] [phone] [place] [address] May, Randi Noe Asthma J45.909 and Vitamin D deficiency E55.9 IMMUNIZATIONS Vaccine Route Administration Date Status COVID-19 [...] Notes Start Da te End Date Status Ventolin HFA 108 (90 Base) MCG/ACT 2 puffs as needed I nhalation every 6 hrs for 30 Days Active metFORMIN HCl ER 500 MG 2 tabs Orally Daily Active Flonase 50 MCG/ACT 2 sprays in each nostril Nasally Once a day f or 30 day(s) Active Omeprazole 40 MG 1 cap orally once daily for 30 Active Ibuprofen 600 MG 1 tablet with food or milk a s needed Orally Three times a day prn for 30 day(s) Oct, Active lamoTRIgine 150 MG 2 tablets Orally Once a day Active Lisinopril 2.5 MG 1 tab(s) Orally Once a day Active Atorvastatin Calcium 20 MG 1 tablet Orally Once a day Active Loratadine 10 MG 1 tablet Orally Once a day a s needed for allergy symptoms for 30 Active hydrOXYzine HCl 10 MG 1 tab Orally bid Active Trulicity 1.5 MG/0.5ML as directed Subcutaneous weekly Active Gabapentin 300 MG 1 capsule Orally before bedtime for 30 day(s) Mar, Active Sertraline HCl 100 MG 2 tabs Orally Once a day Active Meloxicam 15 MG 1 tablet orally once daily Active Drisdol 66817 UNIT 1 capsule Orally weekly for 30 Days May, Active PROCEDURES No Information RESULTS No Results REASON FOR VISIT refill request MEDICAL (GENERAL) HISTORY Type Description Date Medical History Hypertriglyceridemia: Follows with Dr. Estefany amaya Medical History PCOS Medical History ADHD Medical History Asthma Medical History Bipolar Disorder: Follows with Jules draper Medical History Depression Medical History hypertension Medical History vitamin D deficiency/didn't finish 50,000 units of vit.,given to her 3months ago-today01/28/14 Medical History Chronic Low Back Pain Medical History LEIGH ANN--doesn't use CPAP Medical History palpitations Medical History T2DM Surgical History Tonsils and Adenoids Surgical History [...] Notes Treatment Notes Treatm ent Clinical Notes May, Asthma (ICD-10 - J45.909) May, Vitamin D deficiency (ICD-10 - E55.9) PLAN OF TREATMENT Medication Medication Name Sig Start Date Stop Date Drisdol 97044 UNIT 1 capsule Orally weekly for 30 Days May, 018 Gabapentin 300 MG 1 capsule Orally before bedtime for 30 day(s) Mar, Ventolin HFA 108 (90 Base) MCG/ACT 2 puffs as needed I nhalation every 6 hrs for 30 Days Insurance Providers Payer Name Payer Address Payer Phone Insured Name Patient Relati onship to Insured Coverage Start Date Coverage End Date [facility] [facility] [place] [address] [facility] [id number] [phone] MILI WHITT self
--- OUTSIDE RECORDS SUMMARY | 2021-08-18 08:33 | CCD ---
Author Author [facility] Organization [facility] Address Unknown Phone Unavailable Care Team Providers Care Court Transcriber Name Role Phone Mike Barraganja GUITAR REPAIR TECHNICIAN Unavailable Unavailable Kocan, J Ai GUITAR REPAIR TECHNICIAN Unavailable Unavailable Kocan, J Ai GUITAR REPAIR TECHNICIAN Unavailable Unavailable Kocan, J Ai GUITAR REPAIR TECHNICIAN Unavailable Unavailable Kocan, J Ai GUITAR REPAIR TECHNICIAN Unavailable Unavailable Kocan, J Ai GUITAR REPAIR TECHNICIAN Unavailable Unavailable Kocan, J Ai GUITAR REPAIR TECHNICIAN Unavailable Unavailable Kocan, J Ai GUITAR REPAIR TECHNICIAN Unavailable Unavailable Kocan, J Ai GUITAR REPAIR TECHNICIAN Unavailable Unavailable Kocan, J Ai GUITAR REPAIR TECHNICIAN Unavailable Unavailable Kocan, J Ai GUITAR REPAIR TECHNICIAN Unavailable Unavailable Kocan, J Ai GUITAR REPAIR TECHNICIAN Unavailable Unavailable Kocan, J Ai GUITAR REPAIR TECHNICIAN Unavailable Unavailable Kocan, J Ai GUITAR REPAIR TECHNICIAN Unavailable Unavailable Berg, Ashley WOOD DOWEL MACHINE OPERATOR Unavailable Unavailable Berg, Ashley WOOD DOWEL MACHINE OPERATOR Unavailable Unavailable Berg, Ashley WOOD DOWEL MACHINE OPERATOR Unavailable Unavailable Berg, Ashley WOOD DOWEL MACHINE OPERATOR Unavailable Unavailable Berg, Ashley WOOD DOWEL MACHINE OPERATOR Unavailable Unavailable Berg, Ashley WOOD DOWEL MACHINE OPERATOR Unavailable Unavailable Berg, Ashley WOOD DOWEL MACHINE OPERATOR Unavailable Unavailable Berg, Ashley WOOD DOWEL MACHINE OPERATOR Unavailable Unavailable Berg, Ashley WOOD DOWEL MACHINE OPERATOR Unavailable Unavailable Berg, Ashley WOOD DOWEL MACHINE OPERATOR Unavailable Unavailable Berg, Ashley WOOD DOWEL MACHINE OPERATOR Unavailable Unavailable Berg, Ashley WOOD DOWEL MACHINE OPERATOR Unavailable Unavailable Berg, Ashley WOOD DOWEL MACHINE OPERATOR Unavailable Unavailable KATHI, MARIE Unavailable Unavailable DMITRI, ANAMARIA Unavailable Unavailable [facility], [facility], PA-C Unavailable Unavailabl e Fish, [facility], PA-C Unavailable Unavailabl e Fish, [facility], PA-C Unavailable Unavailabl e Fish, [facility], PA-C Unavailable Unavailabl e Fish, [facility], PA-C Unavailable Unavailabl e Fish, [facility], PA-C Unavailable Unavailabl e Fish, [facility], PA-C Unavailable Unavailabl e Fish, [facility], PA-C Unavailable Unavailabl e Fish, [facility], PA-C Unavailable Unavailabl e Fish, [facility], PA-C Unavailable Unavailabl e Fish, [facility], PA-C Unavailable Unavailabl e Fish, [facility], PA-C Unavailable Unavailabl e Fish, [facility], PA-C Unavailable Unavailabl e Fish, [facility], PA-C Unavailable Unavailabl e Fish, [facility], PA-C Unavailable Unavailabl e Fish, [facility], PA-C Unavailable Unavailabl e Fish, [facility], PA-C Unavailable Unavailabl e Fish, [facility], PA-C Unavailable Unavailabl e Fish, [facility], PA-C Unavailable Unavailabl e Fish, [facility], PA-C Unavailable Unavailabl e Fish, Madison [facility], PA-C Unavailable Unavailabl e Fish, [facility], [facility] Unavailable Unavailabl e Fish, [facility], [facility] Unavailable Unavailabl e Fish, [facility], PA-C Unavailable Unavailabl e Fish, [facility], PA-C Unavailable Unavailabl e Fish, [facility], PA-C Unavailable Unavailabl e Fish, [facility], PA-C Unavailable Unavailabl e Fish, [facility], PA-C Unavailable Unavailabl e Fish, [facility], PA-C Unavailable Unavailabl e Fish, [facility], [facility] Unavailable Unavailabl e Fish, [facility], PA-C Unavailable Unavailabl e Fish, [facility], PA-C Unavailable Unavailabl e Fish, [facility], PA-C Unavailable Unavailabl e Fish, [facility], PA-C Unavailable Unavailabl e Fish, [facility], PA-C Unavailable Unavailabl e Fish, [facility], PA-C Unavailable Unavailabl e Mollison, Po Langley MD Unavailable Unavailable Mollison, Po Langley MD Unavailable Unavailable Mollison, Po Langley MD Unavailable Unavailable Mollison, Po Langley MD Unavailable Unavailable Mollison, Po Langley MD Unavailable Unavailable Mollison, Po Langley MD Unavailable Unavailable Mollison, Po Langley MD Unavailable Unavailable Mollison, Po Langley MD Unavailable Unavailable Mollison, Po Langley MD Unavailable Unavailable Mollison, Po Langley MD Unavailable Unavailable Mollison, Po Langley MD Unavailable Unavailable Mollison, Po Langley MD Unavailable Unavailable Mollison, Po Langley MD Unavailable Unavailable MollisonPo MD Unavailable Unavailable Mollison, Po Langley MD Unavailable Unavailable MollisonPo MD Unavailable Unavailable MollisonPo MD Unavailable Unavailable MollisonPo MD Unavailable Unavailable MollisonPo MD Unavailable Unavailable Mollison, Po Langley MD Unavailable Unavailable Mollison, Po Langley MD Unavailable Unavailable Mollison, Po Langley MD Unavailable Unavailable Mollison, Po Langley MD Unavailable Unavailable Mollison, Po Langley MD Unavailable Unavailable MollisonPo MD Unavailable Unavailable Mollison, Po Langley MD Unavailable Unavailable Mollison, Po Langley MD Unavailable Unavailable Mollison, Po Langley MD Unavailable Unavailable Mollison, Po Langley MD Unavailable Unavailable Mollison, Po Langley MD Unavailable Unavailable Mollison, Po Langley MD Unavailable Unavailable MEGAN CHO MD Unavailable Unavailable TAMMIE, MEGAN GATES Unavailable Unavailable TAMMIE, MEGAN GATES Unavailable Unavailable TAMMIE, MEGAN GATES Unavailable Unavailable TAMMIE, MEGAN GATES Unavailable Unavailable TAMMIE, MEGAN GATES Unavailable Unavailable TAMMIE, MEGAN GATES Unavailable Unavailable TAMMIE, MEGAN GATES Unavailable Unavailable TAMMIE, MEGAN GATES Unavailable Unavailable TAMMIE, MEGAN GATES Unavailable Unavailable TAMMIE, MEGAN GATES Unavailable Unavailable TAMMIE, MEGAN GATES Unavailable Unavailable TAMMIE, MEGAN GATES Unavailable Unavailable TAMMIE, MEGAN GATES Unavailable Unavailable TAMMIE, MEGAN GATES Unavailable Unavailable TAMMIE, MEGAN GATES Unavailable Unavailable TAMMIE, MEGAN GATES Unavailable Unavailable TAMMIE, MEGAN GATES Unavailable Unavailable TAMMIE, MEGAN GATES Unavailable Unavailable TAMMIE, MEGAN GATES Unavailable Unavailable TAMMIE, MEGAN GATES Unavailable Unavailable TAMMIE, MEGAN GATES Unavailable Unavailable TAMMIE, MEGAN GATES Unavailable Unavailable TAMMIE, MEGAN GATES Unavailable Unavailable TAMMIE, MEGAN GATES Unavailable Unavailable TAMMIE, MEGAN GATES Unavailable Unavailable TAMMIE, MEGAN GATES Unavailable Unavailable TAMMIE, MEGAN GATES Unavailable Unavailable TAMMIE, MEGAN GATES Unavailable Unavailable TAMMIE, MEGAN GATES Unavailable Unavailable TAMMIE, MEGAN GATES Unavailable Unavailable TAMMIE, MEGAN GATES Unavailable Unavailable TAMMIE, MEGAN GATES Unavailable Unavailable TAMMIE, MEGAN GATES Unavailable Unavailable TAMMIE, MEGAN GATES Unavailable Unavailable TAMMIE, MEGAN GATES Unavailable Unavailable TAMMIE, MEGAN GATES Unavailable Unavailable TAMMIE, MEGAN GATES Unavailable Unavailable TAMMIE, MEGAN GATES Unavailable Unavailable TAMMIE, MEGAN GATES Unavailable Unavailable TAMMIE, MEGAN GATES Unavailable Unavailable TAMMEI, MEGAN GATES Unavailable Unavailable TAMMIE, MEGAN GATES Unavailable Unavailable TAMMIE, MEGAN GATES Unavailable Unavailable TAMMIE, MEGAN GATES Unavailable Unavailable ATMMIE, MEGAN GATES Unavailable Unavailable TAMMIE, MEGAN GATES Unavailable Unavailable TAMMIE, MEGAN GATES Unavailable Unavailable TAMMIE, MEGAN GATES Unavailable Unavailable TAMMIE, MEGAN GATES Unavailable Unavailable TAMMIE, MEGAN GATES Unavailable Unavailable TAMMIE, MEGAN GATES Unavailable Unavailable TAMMIE, MEGAN GATES Unavailable Unavailable TAMMIE, MEGAN GATES Unavailable Unavailable TAMMIE, MEGAN GATES Unavailable Unavailable TAMMIE, MEGAN GATES Unavailable Unavailable ARIAN, B JUAN WOOD DOWEL MACHINE OPERATOR Unavailable Unavailable ARIAN, B JUAN WOOD DOWEL MACHINE OPERATOR Unavailable Unavailable ARIAN, B JUAN WOOD DOWEL MACHINE OPERATOR Unavailable Unavailable ARIAN, B JUAN WOOD DOWEL MACHINE OPERATOR Unavailable Unavailable ARIAN, B JUAN WOOD DOWEL MACHINE OPERATOR Unavailable Unavailable ARIAN, B JUAN WOOD DOWEL MACHINE OPERATOR Unavailable Unavailable ARIAN, B JUAN WOOD DOWEL MACHINE OPERATOR Unavailable Unavailable ARIAN, B JUAN WOOD DOWEL MACHINE OPERATOR Unavailable Unavailable ARIAN, B JUAN WOOD DOWEL MACHINE OPERATOR Unavailable Unavailable ARIAN, B JUAN WOOD DOWEL MACHINE OPERATOR Unavailable Unavailable ARAIN, B JUAN WOOD DOWEL MACHINE OPERATOR Unavailable Unavailable ARIAN, B JUAN WOOD DOWEL MACHINE OPERATOR Unavailable Unavailable ARIAN, B JUAN WOOD DOWEL MACHINE OPERATOR Unavailable Unavailable ARIAN, B JUAN WOOD DOWEL MACHINE OPERATOR Unavailable Unavailable ARIAN, B JUAN WOOD DOWEL MACHINE OPERATOR Unavailable Unavailable ARIAN, B JUAN WOOD DOWEL MACHINE OPERATOR Unavailable Unavailable ARIAN, B JUAN WOOD DOWEL MACHINE OPERATOR Unavailable Unavailable ARIAN, B JUAN WOOD DOWEL MACHINE OPERATOR Unavailable Unavailable ARIAN, B JUAN WOOD DOWEL MACHINE OPERATOR Unavailable Unavailable ARIAN, B JUAN WOOD DOWEL MACHINE OPERATOR Unavailable Unavailable ARIAN, B JUAN WOOD DOWEL MACHINE OPERATOR Unavailable Unavailable ARIAN, B JUAN WOOD DOWEL MACHINE OPERATOR Unavailable Unavailable ARIAN, B JUAN WOOD DOWEL MACHINE OPERATOR Unavailable Unavailable ARIAN, B JUAN WOOD DOWEL MACHINE OPERATOR Unavailable Unavailable ARIAN, B JUAN WOOD DOWEL MACHINE OPERATOR Unavailable Unavailable ARIAN, B JUAN WOOD DOWEL MACHINE OPERATOR Unavailable Unavailable ARIAN, B JUAN WOOD DOWEL MACHINE OPERATOR Unavailable Unavailable ARIAN, B JUAN WOOD DOWEL MACHINE OPERATOR Unavailable Unavailable ARIAN, B JUAN WOOD DOWEL MACHINE OPERATOR Unavailable Unavailable ARIAN, B JUAN WOOD DOWEL MACHINE OPERATOR Unavailable Unavailable ARIAN, B JUAN WOOD DOWEL MACHINE OPERATOR Unavailable Unavailable ARIAN, B JUAN WOOD DOWEL MACHINE OPERATOR Unavailable Unavailable ARIAN, B JUAN WOOD DOWEL MACHINE OPERATOR Unavailable Unavailable ARIAN, B JUNA WOOD DOWEL MACHINE OPERATOR Unavailable Unavailable ARIAN, B JUAN WOOD DOWEL MACHINE OPERATOR Unavailable Unavailable ARIAN, B JUAN WOOD DOWEL MACHINE OPERATOR Unavailable Unavailable ARIAN, B JUAN WOOD DOWEL MACHINE OPERATOR Unavailable Unavailable ARIAN, B JUAN WOOD DOWEL MACHINE OPERATOR Unavailable Unavailable ARIAN, B JUAN WOOD DOWEL MACHINE OPERATOR Unavailable Unavailable ARIAN, B JUAN WOOD DOWEL MACHINE OPERATOR Unavailable Unavailable ARIAN, B JUAN WOOD DOWEL MACHINE OPERATOR Unavailable Unavailable ARIAN, B JUAN WOOD DOWEL MACHINE OPERATOR Unavailable Unavailable ARIAN, B JUAN WOOD DOWEL MACHINE OPERATOR Unavailable Unavailable ARIAN, B JUAN WOOD DOWEL MACHINE OPERATOR Unavailable Unavailable ARIAN, B JUAN WOOD DOWEL MACHINE OPERATOR Unavailable Unavailable ARIAN, B JUAN WOOD DOWEL MACHINE OPERATOR Unavailable Unavailable ARIAN, B JUAN WOOD DOWEL MACHINE OPERATOR Unavailable Unavailable ARIAN, B JUAN WOOD DOWEL MACHINE OPERATOR Unavailable Unavailable ARIAN, B JUAN WOOD DOWEL MACHINE OPERATOR Unavailable Unavailable ARIAN, B JUAN WOOD DOWEL MACHINE OPERATOR Unavailable Unavailable ARIAN, B JUAN WOOD DOWEL MACHINE OPERATOR Unavailable Unavailable ARIAN, B JUAN WOOD DOWEL MACHINE OPERATOR Unavailable Unavailable ARIAN, B JUAN WOOD DOWEL MACHINE OPERATOR Unavailable Unavailable ARIAN, B JUAN WOOD DOWEL MACHINE OPERATOR Unavailable Unavailable ARIAN, B JUAN WOOD DOWEL MACHINE OPERATOR Unavailable Unavailable ARIAN, B JUAN WOOD DOWEL MACHINE OPERATOR Unavailable Unavailable ARIAN, B JUAN WOOD DOWEL MACHINE OPERATOR Unavailable Unavailable ARIAN, B JUAN WOOD DOWEL MACHINE OPERATOR Unavailable Unavailable ARIAN, B JUAN WOOD DOWEL MACHINE OPERATOR Unavailable Unavailable ARIAN, B JUAN WOOD DOWEL MACHINE OPERATOR Unavailable Unavailable ARIAN, B JUAN WOOD DOWEL MACHINE OPERATOR Unavailable Unavailable ARIAN, B JUAN WOOD DOWEL MACHINE OPERATOR Unavailable Unavailable KUHN, J ELENA PA Unavailable Unavailable KUHN, J ELENA PA Unavailable Unavailable KUHN, J ELENA PA Unavailable Unavailable KUHN, J ELENA PA Unavailable Unavailable KUHN, J ELENA PA Unavailable Unavailable KUHN, J ELENA PA Unavailable Unavailable KUHN, J ELENA PA Unavailable Unavailable KUHN, J ELENA PA Unavailable Unavailable KUHN, J ELENA PA Unavailable Unavailable KUHN, J ELENA PA Unavailable Unavailable KUHN, J ELENA PA Unavailable Unavailable KUHN, J ELENA PA Unavailable Unavailable KUHN, J ELENA PA Unavailable Unavailable KUHN, J ELENA PA Unavailable Unavailable KUHN, J ELENA PA Unavailable Unavailable KUHN, J ELENA PA Unavailable Unavailable KUHN, J ELENA PA Unavailable Unavailable KUHN, J ELENA PA Unavailable Unavailable KUHN, J ELENA PA Unavailable Unavailable KUHN, J ELENA PA Unavailable Unavailable KUHN, J ELENA PA Unavailable Unavailable KUHN, J ELENA PA Unavailable Unavailable KUHN, J ELENA PA Unavailable Unavailable KUHN, J ELENA PA Unavailable Unavailable KUHN, J ELENA PA Unavailable Unavailable KUHN, J ELENA PA Unavailable Unavailable KUHN, J ELENA PA Unavailable Unavailable SADIA, RENEE HEIDI AUTOMATIC CENTRIFUGAL STATION OPERATOR-C Unavailable Unavailable SADIA, RENEE HEIDI AUTOMATIC CENTRIFUGAL STATION OPERATOR-C Unavailable Unavailable SADIA, RENEE HEIDI AUTOMATIC CENTRIFUGAL STATION OPERATOR-C Unavailable Unavailable SADIA, RENEE HEIDI AUTOMATIC CENTRIFUGAL STATION OPERATOR-C Unavailable Unavailable SADIA, RENEE HEIDI AUTOMATIC CENTRIFUGAL STATION OPERATOR-C Unavailable Unavailable SADIA, RENEE HEIDI AUTOMATIC CENTRIFUGAL STATION OPERATOR-C Unavailable Unavailable SADIA, RENEE HEIDI AUTOMATIC CENTRIFUGAL STATION OPERATOR-C Unavailable Unavailable SADIA, RENEE HEIDI AUTOMATIC CENTRIFUGAL STATION OPERATOR-C Unavailable Unavailable SADIA, RENEE HEIDI AUTOMATIC CENTRIFUGAL STATION OPERATOR-C Unavailable Unavailable SADIA, RENEE HEIDI AUTOMATIC CENTRIFUGAL STATION OPERATOR-C Unavailable Unavailable SADIA, RENEE HEIDI AUTOMATIC CENTRIFUGAL STATION OPERATOR-C Unavailable Unavailable SADIA, RENEE HEIDI AUTOMATIC CENTRIFUGAL STATION OPERATOR-C Unavailable Unavailable SADIA, RENEE HEIDI AUTOMATIC CENTRIFUGAL STATION OPERATOR-C Unavailable Unavailable SADIA, RENEE HEIDI AUTOMATIC CENTRIFUGAL STATION OPERATOR-C Unavailable Unavailable SADIA, RENEE HEIDI AUTOMATIC CENTRIFUGAL STATION OPERATOR-C Unavailable Unavailable SADIA, RENEE HEIDI AUTOMATIC CENTRIFUGAL STATION OPERATOR-C Unavailable Unavailable SADIA, RENEE HEIDI AUTOMATIC CENTRIFUGAL STATION OPERATOR-C Unavailable Unavailable KUHN, J ELENA PA Unavailable Unavailable KUHN, J ELENA PA Unavailable Unavailable KUHN, J ELENA PA Unavailable Unavailable KUHN, J ELENA PA Unavailable Unavailable KUHN, J ELENA PA Unavailable Unavailable KUHN, J ELENA PA Unavailable Unavailable KUHN, J ELENA PA Unavailable Unavailable KUHN, J ELENA PA Unavailable Unavailable KUHN, J ELENA PA Unavailable Unavailable KUHN, J ELENA PA Unavailable Unavailable KUHN, J ELENA PA Unavailable Unavailable KUHN, J ELENA PA Unavailable Unavailable KUHN, J ELENA PA Unavailable Unavailable KUHN, J ELENA PA Unavailable Unavailable KUHN, J ELENA PA Unavailable Unavailable KUHN, J ELENA PA Unavailable Unavailable KUHN, J ELENA PA Unavailable Unavailable KUHN, J ELENA PA Unavailable Unavailable KUHN, J ELENA PA Unavailable Unavailable KUHN, J ELENA PA Unavailable Unavailable KUHN, J ELENA PA Unavailable Unavailable KUHN, J ELENA PA Unavailable Unavailable KUHN, J ELENA PA Unavailable Unavailable KUHN, J ELENA PA Unavailable Unavailable KUHN, J ELENA PA Unavailable Unavailable KUHN, J ELENA PA Unavailable Unavailable KUHN, J ELENA PA Unavailable Unavailable NOT, SPECIFIED Unavailable Unavailable Re-disclosure Warning The records that you are about to access may contain information from federally-assisted alcohol or drug abuse programs. If such information is present, then the following federally mandated warning applies: This information has been disclosed to you from records protected by federal confidentiality rules (42 CFR part 2). The federal rules prohibit you from making any further disclosure of this information unless further disclosure is expressly permitted by the written consent of the person to whom it pertains or as otherwise permitted by 42 CFR part 2. A general authorization for the release of medical or other information is NOT sufficient for this purpose. The Federal rules restrict any use of the information to criminally investigate or prosecute any alcohol or drug abuse patient.The records that you are about to access may contain highly sensitive health information, the redisclosure of which is protected by Article 27-F of the [facility] Public Health law. If you continue you may have access to information: Regarding HIV / AIDS; Provided by facilities licensed or operated by the [facility] Office of Mental Health; or Provided by the [facility] Office for People With Developmental Disabilities. If such information is present, then the following [facility] mandated warning applies: This information has been disclosed to you from confidential records which are protected by state law. State law prohibits you from making any further disclosure of this information without the specific written consent of the person to whom it pertains, or as otherwise permitted by law. Any unauthorized further disclosure in violation of state law may result in a fine or residential sentence or both. A general authorization for the release of medical or other information is NOT sufficient authorization for further disc losure. Family History Family Member Name Family Member Gender Family Member Status Date o f Status Description Data Source(s) Unknown Female Problem [facility] ([facility]) Unknown Female Problem [facility] ([facility]) Unknown Female Encounters Encounter Providers Location Date Indications Data Source(s ) Unknown [address] [facility] [place] [address] 08/13/2021 12:00:00 AM EST eCW1 ([facility]) Outpatient [address] [facility] [place] [address] 08/09/2021 12:00:00 AM EST eCW1 ([facility]) Outpatient Attender: Ai Barragan RNPReferrer: MARIE Cantu [email or web address] 08/04/2021 12:00:00 AM EST [facility] Outpatient Attender: JUAN DON NP Physical Therapy 02:30:00 PM EST [facility] ([facility]) Outpatient Attender: Ashley Mueller ariel 07/27/2021 01:10:00 PM EST [facility] ([facility]) Outpatient Attender: Demi ESCOBEDO PA-C Physical Therapy 07/21/2021 01:15:00 PM EST [facility] ([facility]) Outpatient Attender: ELENA KUHN PAConsultant: SPECIFIED NOT 07/09/2021 04:29:00 PM EDT - 07/09/2021 04:29:00 PM EDT [facility] Outpatient Attender: ELENA GRAYSON Family Practice 07/09 04:20:00 PM EDT [facility] ([facility]) Outpatient Attender: Shivam Osorio/Rena/Jurgen/Vanita indl 07/08/2021 01:30:00 PM EDT [facility] ([facility]) Outpatient Attender: ELENA KUHN PAConsultant: SPECIFIED NOT 06/18/2021 02:45:00 PM EDT - 06/18/2021 02:45:00 PM EDT [facility] Outpatient Attender: ELENA KUHN [place] [facility] 06/18 02:40:00 PM EDT [facility] ([facility] Outpatient Attender: Shivam Osorio/Rena/Jurgen/Re indl 06/03/2021 09:15:00 AM EDT [facility] ([facility]) Unknown [address] [facility] [place] [address] 05/28/2021 12:00:00 AM EDT eCW1 ([facility]) Unknown [address] [facility] [address] 04/29/2021 12:00:00 AM EDT eCW1 ([facility]) Unknown [address] [facility] [address] 04/28/2021 12:00:00 AM EDT eCW1 ([facility]) Outpatient Attender: Shivam Osorio/Rena/Jurgen/Re indl 04/27/2021 01:45:00 PM EDT [facility] ([facility]) Unknown [address] [facility] [place] [address] 04/21/2021 12:00:00 AM EDT eCW1 ([facility]) Unknown [address] [facility] [address] 04/05/2021 12:00:00 AM EDT eCW1 ([facility]) Outpatient [address] [facility] [address] 04/01/2021 12:00:00 AM EDT eCW1 ([facility]) Unknown [address] [facility] [place] [address] 03/01/2021 12:00:00 AM EDT eCW1 ([facility]) Outpatient Attender: ELENA KUHN PAConsultant: SPECIFIED NOT 02/25/2021 01:22:00 PM EDT - 02/25/2021 01:22:00 PM EDT [facility] Outpatient Attender: ELENA GRAYSON Family Practice 02/25 01:20:00 PM EDT [facility] ([facility]) Outpatient Attender: Ashley george 02/20/2021 12:25:00 PM EDT [facility] ([facility] Outpatient Attender: HEIDI Osorio/Rena/Jurgen/R eindl 02/15/2021 02:45:00 PM EDT [facility] ([facility]) Outpatient [address] [facility] [place] [address] 01/22/2021 12:00:00 AM EDT eCW1 ([facility]) Outpatient Attender: JUAN DON NP Physical Therapy 01:15:00 PM EDT [facility] ([facility]) Outpatient Attender: ELENA KUHN PAConsultant: SPECIFIED NOT 12/09/2020 03:52:00 PM EDT - 12/09/2020 03:52:00 PM EDT [facility] Unknown [address] [facility] [place] [address] 12/04/2020 12:00:00 AM EDT eCW1 ([facility]) Outpatient [address] [facility] [address] 12/03/2020 12:00:00 AM EDT eCW1 ([facility]) Outpatient Attender: MEGAN COYNE.[email or web address]-CECI 12:00:00 AM EST - 10/30/2020 03:56:43 PM EST [facility] Outpatient Attender: HEIDI Osorio/Rena/Jurgen/R eindl 10/29/2020 12:15:00 PM EST [facility] ([facility]) Outpatient Attender: ELENA KUHN PAConsultant: SPECIFIED NOT 08/24/2020 01:05:00 PM EST - 08/24/2020 01:05:00 PM EST [facility] Outpatient Attender: ELENA GRAYSON Family Practice 08/24 12:00:00 PM EST [facility] ([facility] Outpatient [address] [facility] [place] [address] 07/20/2020 12:00:00 AM EST eCW1 ([facility]) Outpatient [facility] 07/03/2020 12:02:04 AM EDT [facility] Outpatient Attender: JUAN DON NP Physical Therapy 11:45:00 AM EDT [facility] ([facility]) Outpatient Attender: ANAMARIA RIZVIConsultant: SPECIFIED NOT 11/19/2018 12:01:11 PM EDT - 11/19/2018 12:00:00 PM EDT [facility] Immunizations Vaccine Date Status Description Data Source(s) COVID-19 dose #2 given elsewhere Unspecified 01/08/2021 03:0 2:00 PM EDT completed eCW1 ([facility]) COVID-19 dose #2 given elsewhere Unspecified 01/08/2021 03:0 2:00 PM EDT completed eCW1 ([facility]) COVID-19 dose #2 given elsewhere Unspecified 01/08/2021 03:0 2:00 PM EDT completed eCW1 ([facility]) COVID-19 dose #2 given elsewhere Unspecified 01/08/2021 03:0 2:00 PM EDT completed eCW1 ([facility]) COVID-19 dose #2 given elsewhere Unspecified 01/08/2021 03:0 2:00 PM EDT completed eCW1 ([facility]) COVID-19 dose #2 given elsewhere Unspecified 01/08/2021 03:0 2:00 PM EDT completed eCW1 ([facility]) COVID-19 dose #2 given elsewhere Unspecified 01/08/2021 03:0 2:00 PM EDT completed eCW1 ([facility]) COVID-19 dose #2 given elsewhere Unspecified 01/08/2021 03:0 2:00 PM EDT completed eCW1 ([facility]) COVID-19 dose #2 given elsewhere Unspecified 01/08/2021 03:0 2:00 PM EDT completed eCW1 ([facility]) COVID-19 dose #2 given elsewhere Unspecified 01/08/2021 03:0 2:00 PM EDT completed eCW1 ([facility]) COVID-19 dose #2 given elsewhere Unspecified 01/08/2021 03:0 2:00 PM EDT completed eCW1 ([facility]) COVID-19 VACCINE Pfizer 01/08/2021 12:00:00 AM EDT completed [facility] Vaccine Series Complete: YESThis Data wa s Submitted to [facility] Via [facility]. COVID-19 dose #1 given elsewhere Unspecified 12/18/2020 03:0 2:00 PM EDT completed eCW1 ([facility]) COVID-19 dose #1 given elsewhere Unspecified 12/18/2020 03:0 2:00 PM EDT completed eCW1 ([facility]) COVID-19 dose #1 given elsewhere Unspecified 12/18/2020 03:0 2:00 PM EDT completed eCW1 ([facility]) COVID-19 dose #1 given elsewhere Unspecified 12/18/2020 03:0 2:00 PM EDT completed eCW1 ([facility]) COVID-19 dose #1 given elsewhere Unspecified 12/18/2020 03:0 2:00 PM EDT completed eCW1 ([facility]) COVID-19 dose #1 given elsewhere Unspecified 12/18/2020 03:0 2:00 PM EDT completed eCW1 ([facility]) COVID-19 dose #1 given elsewhere Unspecified 12/18/2020 03:0 2:00 PM EDT completed eCW1 ([facility]) COVID-19 dose #1 given elsewhere Unspecified 12/18/2020 03:0 2:00 PM EDT completed eCW1 ([facility]) COVID-19 dose #1 given elsewhere Unspecified 12/18/2020 03:0 2:00 PM EDT completed eCW1 ([facility]) COVID-19 dose #1 given elsewhere Unspecified 12/18/2020 03:0 2:00 PM EDT completed eCW1 ([facility]) COVID-19 dose #1 given elsewhere Unspecified 12/18/2020 03:0 2:00 PM EDT completed eCW1 ([facility]) COVID-19 VACCINE Pfizer 12/18/2020 12:00:00 AM EDT completed [facility] Vaccine Series Complete: NOThis Data was Submitted to [facility] Via [employer]. Medications Medication Brand Name Start Date Product Form Dose Route Admi nistrative Instructions Pharmacy Instructions Status Indications Reaction Description Data Source(s) 24 HR Metformin hydrochloride 500 MG Extended Release Oral T ablet METFORMIN HCL 07/29/2021 12:00:00 AM EST tablet extended release 24 hr 180 TAKE 1 TABLET BY MOUTH TWICE A DAY . MAX DAILY DOSE = 2 TAKE 1 TABLET BY MOUTH TWICE A DAY . MAX DAILY DOSE = 2 SOLD: 08/11/2021 [facility] BLOOD SUGAR DIAGNOSTIC 2021 12:00:00 AM EST strip 100 DIRECTED UP TO ONE TIME A DAY DIRECTED UP TO ONE TIME A DAY SOLD: 08/11/2021 [facility] 2.5 mg 07/22/2021 12:00:00 AM EST tablet 90 TAKE ONE TABLET BY MOUTH EVERY DAY TAKE ONE TABLET BY MOUTH EVERY DAY SOLD: 08/11/2021 [facility] 0.75 mg/0.5 mL 06/26/2021 12:00:00 AM EDT pen injector 2 INJECT 1 PEN SUBCUTANEOUSLY ONCE WEEKLY INJECT 1 PEN SUBCUTANEOUSLY ONCE WEEKLY SOLD: 07/02/2021 [facility] 10 mg 06/19/2021 12:00:00 AM EDT tablet 30 TAKE 1/2 TABLET BY MOUTH TWICE A DAY NEEDED MAXIMUM DAILY DOSE = 1 TABLET TAKE 1/2 TABLET BY MOUTH TWICE A DAY NEEDED MAXIMUM DAILY DOSE = 1 TABLET SOLD: 08/11/2021 [facility] 150 mg 06/19/2021 12:00:00 AM EDT tablet 60 TAKE ONE TABLET BY MOUTH TWICE A DAY TAKE ONE TABLET BY MOUTH TWICE A DAY SOLD: 06/24/2021 [facility] 10 mg 06/19/2021 12:00:00 AM EDT tablet 30 TAKE 1/2 TABLET BY MOUTH TWICE A DAY NEEDED MAXIMUM DAILY DOSE = 1 TABLET TAKE 1/2 TABLET BY MOUTH TWICE A DAY NEEDED MAXIMUM DAILY DOSE = 1 TABLET SOLD: 06/24/2021 [facility] 150 mg 06/19/2021 12:00:00 AM EDT tablet 60 TAKE ONE TABLET BY MOUTH TWICE A DAY TAKE ONE TABLET BY MOUTH TWICE A DAY SOLD: 08/11/2021 [facility] 100 mg 06/19/2021 12:00:00 AM EDT tablet 60 TAKE TWO TABLETS BY MOUTH EVERY EVENING TAKE TWO TABLETS BY MOUTH EVERY EVENING SOLD: 06/24/2021 [facility] 100 mg 06/19/2021 12:00:00 AM EDT tablet 60 TAKE TWO TABLETS BY MOUTH EVERY EVENING TAKE TWO TABLETS BY MOUTH EVERY EVENING SOLD: 08/11/2021 [facility] 4 mg 06/06/2021 12:00:00 AM EDT tablet 10 TAKE ONE TABLET BY MOUTH TWICE A DAY NEEDED FOR NAUSEA FOR 5 DAYS TAKE ONE TABLET BY MOUTH TWICE A DAY NEEDED FOR NAUSEA FOR 5 DAYS SOLD: 06/06/2021 [facility] 1,250 mcg (50,000 unit) 05/29/2021 12:00:00 AM EDT capsule 4 TAKE ONE CAPSULE BY MOUTH ONCE WEEKLY TAKE ONE CAPSULE BY MOUTH ONCE WEEKLY SOLD: 05/31/2021 [facility] 1,250 mcg (50,000 unit) 05/29/2021 12:00:00 AM EDT capsule 4 TAKE ONE CAPSULE BY MOUTH ONCE WEEKLY TAKE ONE CAPSULE BY MOUTH ONCE WEEKLY SOLD: 06/28/2021 [facility] 1,250 mcg (50,000 unit) 05/29/2021 12:00:00 AM EDT capsule 4 TAKE ONE CAPSULE BY MOUTH ONCE WEEKLY TAKE ONE CAPSULE BY MOUTH ONCE WEEKLY SOLD: 08/11/2021 [facility] 90 mcg/actuation 05/29/2021 12:00:00 AM EDT HFA aerosol inha ler 18 INHALE 2 PUFFS BY MOUTH EVERY 6 HOURS NEEDED INHALE 2 PUFFS BY MOUTH EVERY 6 HOURS NEEDED SOLD: 06/24/2021 [facility] 90 mcg/actuation 05/29/2021 12:00:00 AM EDT HFA aerosol inha ler 18 INHALE 2 PUFFS BY MOUTH EVERY 6 HOURS NEEDED INHALE 2 PUFFS BY MOUTH EVERY 6 HOURS NEEDED SOLD: 05/31/2021 [facility] gabapentin 300 MG Oral Capsule Gabapentin 300 MG Gabapentin 300 MG 04/01/2021 12:00:00 AM EDT 1.0 {capsule} active G abapentin 300 MG eCW1 ([facility]) gabapentin 300 MG Oral Capsule Gabapentin 300 MG Gabapentin 300 MG 04/01/2021 12:00:00 AM EDT 1.0 {capsule} active G abapentin 300 MG eCW1 ([facility]) 300 mg 04/01/2021 12:00:00 AM EDT capsule 30 TAKE ONE CAPSULE BY MOUTH EVERY DAY BEFORE BEDTIME DIRECTED TAKE ONE CAPSULE BY MOUTH EVERY DAY BEFO RE BEDTIME DIRECTED SOLD: 05/12/2021 [facility] gabapentin 300 MG Oral Capsule Gabapentin 300 MG Gabapentin 300 MG 04/01/2021 12:00:00 AM EDT 1.0 {capsule} active G abapentin 300 MG eCW1 ([facility]) gabapentin 300 MG Oral Capsule Gabapentin 300 MG Gabapentin 300 MG 04/01/2021 12:00:00 AM EDT 1.0 {capsule} active G abapentin 300 MG eCW1 ([facility]) gabapentin 300 MG Oral Capsule Gabapentin 300 MG Gabapentin 300 MG 04/01/2021 12:00:00 AM EDT 1.0 {capsule} active G abapentin 300 MG eCW1 ([facility]) 300 mg 04/01/2021 12:00:00 AM EDT capsule 30 TAKE ONE CAPSULE BY MOUTH EVERY DAY BEFORE BEDTIME DIRECTED TAKE ONE CAPSULE BY MOUTH EVERY DAY BEFO RE BEDTIME DIRECTED SOLD: 04/09/2021 [facility] gabapentin 300 MG Oral Capsule Gabapentin 300 MG Gabapentin 300 MG 04/01/2021 12:00:00 AM EDT 1.0 {capsule} active G abapentin 300 MG eCW1 ([facility]) gabapentin 300 MG Oral Capsule Gabapentin 300 MG Gabapentin 300 MG 04/01/2021 12:00:00 AM EDT 1.0 {capsule} active G abapentin 300 MG eCW1 ([facility]) gabapentin 300 MG Oral Capsule Gabapentin 300 MG Gabapentin 300 MG 04/01/2021 12:00:00 AM EDT 1.0 {capsule} active G abapentin 300 MG eCW1 ([facility]) 10 mg 03/31/2021 12:00:00 AM EDT tablet 30 TAKE ONE TABLET BY MOUTH EVERY DAY NEEDED FOR ALLERGY SYMPTOMS TAKE ONE TABLET BY MOUTH EVERY DAY NE EDED FOR ALLERGY SYMPTOMS SOLD: 05/12/2021 [facility] 0.75 mg/0.5 mL 03/31/2021 12:00:00 AM EDT pen injector 2 INJECT UNDER THE SKIN ONCE WEEKLY MAXIMUM DAILY DOSE = 0.75MG INJECT UNDER THE SKIN ONCE WEEKLY MAXIMUM DAILY DOSE = 0.75MG SOLD: 04/01/2021 [facility] 10 mg 03/31/2021 12:00:00 AM EDT tablet 30 TAKE ONE TABLET BY MOUTH EVERY DAY NEEDED FOR ALLERGY SYMPTOMS TAKE ONE TABLET BY MOUTH EVERY DAY NE EDED FOR ALLERGY SYMPTOMS SOLD: 08/11/2021 [facility] 0.75 mg/0.5 mL 03/31/2021 12:00:00 AM EDT pen injector 2 INJECT UNDER THE SKIN ONCE WEEKLY MAXIMUM DAILY DOSE = 0.75MG INJECT UNDER THE SKIN ONCE WEEKLY MAXIMUM DAILY DOSE = 0.75MG SOLD: 05/31/2021 [facility] 10 mg 03/31/2021 12:00:00 AM EDT tablet 30 TAKE ONE TABLET BY MOUTH EVERY DAY NEEDED FOR ALLERGY SYMPTOMS TAKE ONE TABLET BY MOUTH EVERY DAY NE EDED FOR ALLERGY SYMPTOMS SOLD: 07/02/2021 [facility] 10 mg 03/31/2021 12:00:00 AM EDT tablet 30 TAKE ONE TABLET BY MOUTH EVERY DAY NEEDED FOR ALLERGY SYMPTOMS TAKE ONE TABLET BY MOUTH EVERY DAY NE EDED FOR ALLERGY SYMPTOMS SOLD: 04/01/2021 [facility] 0.75 mg/0.5 mL 03/31/2021 12:00:00 AM EDT pen injector 2 INJECT UNDER THE SKIN ONCE WEEKLY MAXIMUM DAILY DOSE = 0.75MG INJECT UNDER THE SKIN ONCE WEEKLY MAXIMUM DAILY DOSE = 0.75MG SOLD: 04/29/2021 [facility] 40 mg 03/02/2021 12:00:00 AM EDT capsule,delayed release (DR/EC) 90 TAKE ONE CAPSULE BY MOUTH EVERY DAY TAKE ONE CAPSULE BY MOUTH EVERY DAY SOLD: 06/01/2021 [facility] 40 mg 03/02/2021 12:00:00 AM EDT capsule,delayed release (DR/EC) 90 TAKE ONE CAPSULE BY MOUTH EVERY DAY TAKE ONE CAPSULE BY MOUTH EVERY DAY SOLD: 03/05/2021 [facility] 10 mg 03/01/2021 12:00:00 AM EDT tablet 30 TAKE 1 TABLET BY MOUTH ONCE A DAY TAKE 1 TABLET BY MOUTH ONCE A DAY SOLD: 06/06/2021 [facility] 10 mg 03/01/2021 12:00:00 AM EDT tablet 30 TAKE 1 TABLET BY MOUTH ONCE A DAY TAKE 1 TABLET BY MOUTH ONCE A DAY SOLD: 03/05/2021 [facility] atorvastatin 20 MG Oral Tablet ATORVASTATIN CALCIUM 02/27/2021 1 2:00:00 AM EDT tablet 30 TAKE ONE TABLET BY MOUTH EVERY D AY TAKE ONE TABLET BY MOUTH EVERY DAY SOLD: 05/12/2021 [facility] atorvastatin 20 MG Oral Tablet ATORVASTATIN CALCIUM 02/27/2021 1 2:00:00 AM EDT tablet 30 TAKE ONE TABLET BY MOUTH EVERY D AY TAKE ONE TABLET BY MOUTH EVERY DAY SOLD: 08/11/2021 [facility] atorvastatin 20 MG Oral Tablet ATORVASTATIN CALCIUM 02/27/2021 1 2:00:00 AM EDT tablet 30 TAKE ONE TABLET BY MOUTH EVERY D AY TAKE ONE TABLET BY MOUTH EVERY DAY SOLD: 04/09/2021 [facility] atorvastatin 20 MG Oral Tablet ATORVASTATIN CALCIUM 02/27/2021 1 2:00:00 AM EDT tablet 30 TAKE ONE TABLET BY MOUTH EVERY D AY TAKE ONE TABLET BY MOUTH EVERY DAY SOLD: 03/05/2021 [facility] atorvastatin 20 MG Oral Tablet ATORVASTATIN CALCIUM 02/27/2021 1 2:00:00 AM EDT tablet 30 TAKE ONE TABLET BY MOUTH EVERY D AY TAKE ONE TABLET BY MOUTH EVERY DAY SOLD: 06/24/2021 [facility] Ibuprofen 800 MG Oral Tablet Ibuprofen 02/20/2021 12:00:00 AM EDT ORAL completed MEDENT ([facility]) Prednisone 20 MG Oral Tablet Prednisone 02/20/2021 12:00:00 AM EDT completed MEDENT ([facility], [facility]) 20 mg 02/20/2021 12:00:00 AM EDT tablet 8 TAKE ONE TABLET BY MOUTH TWO TIMES A DAY FOR 4 DAYS TAKE ONE TABLET BY MOUTH TWO TIMES A DAY FOR 4 DAYS SO LD: 02/20/2021 [facility] 800 mg 02/20/2021 12:00:00 AM EDT tablet 60 TAKE ONE TABLET BY MOUTH THREE TIMES A DAY NEEDED FOR PAIN TAKE ONE TABLET BY MOUTH THREE TIMES A D AY NEEDED FOR PAIN SOLD: 02/20/2021 [facility] 90 mcg/actuation 02/11/2021 12:00:00 AM EDT HFA aerosol inha ler 18 INHALE 2 PUFFS BY MOUTH EVERY 6 HOURS NEEDED INHALE 2 PUFFS BY MOUTH EVERY 6 HOURS NEEDED SOLD: 04/29/2021 [facility] 90 mcg/actuation 02/11/2021 12:00:00 AM EDT HFA aerosol inha ler 18 INHALE 2 PUFFS BY MOUTH EVERY 6 HOURS NEEDED INHALE 2 PUFFS BY MOUTH EVERY 6 HOURS NEEDED SOLD: 04/01/2021 [facility] 1,250 mcg (50,000 unit) 02/11/2021 12:00:00 AM EDT capsule 4 TAKE 1 CAPSULE BY MOUTH WEEKLY TAKE 1 CAPSULE BY MOUTH WEEKLY SOLD: 04/01/2021 [facility] 1,250 mcg (50,000 unit) 02/11/2021 12:00:00 AM EDT capsule 4 TAKE 1 CAPSULE BY MOUTH WEEKLY TAKE 1 CAPSULE BY MOUTH WEEKLY SOLD: 04/29/2021 [facility] 1,250 mcg (50,000 unit) 02/11/2021 12:00:00 AM EDT capsule 4 TAKE 1 CAPSULE BY MOUTH WEEKLY TAKE 1 CAPSULE BY MOUTH WEEKLY SOLD: 02/20/2021 [facility] 90 mcg/actuation 02/11/2021 12:00:00 AM EDT HFA aerosol inha ler 18 INHALE 2 PUFFS BY MOUTH EVERY 6 HOURS NEEDED INHALE 2 PUFFS BY MOUTH EVERY 6 HOURS NEEDED SOLD: 02/20/2021 [facility] 0.75 mg/0.5 mL 01/15/2021 12:00:00 AM EDT pen injector 2 INJECT UNDER THE SKIN ONCE WEEKLY INJECT UNDER THE SKIN ONCE WEEKLY SOLD: 01/28/2021 [facility] BLOOD SUGAR DIAGNOSTIC 01/15/2021 12:00:00 AM EDT strip 100 USE DIRECTED UP TO 1 DAILY USE DIRECTED UP TO 1 DAILY SOLD: 04/29/2021 [facility] 0.75 mg/0.5 mL 01/15/2021 12:00:00 AM EDT pen injector 2 INJECT UNDER THE SKIN ONCE WEEKLY INJECT UNDER THE SKIN ONCE WEEKLY SOLD: 03/05/2021 [facility] BLOOD SUGAR DIAGNOSTIC 01/15/2021 12:00:00 AM EDT strip 100 USE DIRECTED UP TO 1 DAILY USE DIRECTED UP TO 1 DAILY SOLD: 01/28/2021 [facility] Covid-19 vaccine, Unspecified 01/08/2021 12:00:00 AM EDT completed MEDENT ([facility], ) Medication administered onsite Covid-19 vaccine, Unspecified 12/18/2020 12:00:00 AM EDT completed MEDENT ([facility], ) Medication administered onsite 31 gauge x 3/16" 12/14/2020 12:00:00 AM EDT needle 30 USE 1 NEEDLE DAILY USE 1 NEEDLE DAILY SOLD: 12/31/2020 [facility] 100 mg 12/10/2020 12:00:00 AM EDT tablet 60 TAKE TWO TABLETS BY MOUTH EVERY EVENING TAKE TWO TABLETS BY MOUTH EVERY EVENING SOLD: 12/31/2020 [facility] 100 mg 12/10/2020 12:00:00 AM EDT tablet 60 TAKE TWO TABLETS BY MOUTH EVERY EVENING TAKE TWO TABLETS BY MOUTH EVERY EVENING SOLD: 03/05/2021 [facility] 150 mg 12/10/2020 12:00:00 AM EDT tablet 60 TAKE ONE TABLET BY MOUTH TWICE A DAY TAKE ONE TABLET BY MOUTH TWICE A DAY SOLD: 01/30/2021 [facility] 10 mg 12/10/2020 12:00:00 AM EDT tablet 30 TAKE ONE-HALF TABLET BY MOUTH TWICE A DAY NEEDED TAKE ONE-HALF TABLET BY MOUTH TWICE A DAY NEEDED SO LD: 01/30/2021 [facility] 100 mg 12/10/2020 12:00:00 AM EDT tablet 60 TAKE TWO TABLETS BY MOUTH EVERY EVENING TAKE TWO TABLETS BY MOUTH EVERY EVENING SOLD: 01/30/2021 [facility] 150 mg 12/10/2020 12:00:00 AM EDT tablet 60 TAKE ONE TABLET BY MOUTH TWICE A DAY TAKE ONE TABLET BY MOUTH TWICE A DAY SOLD: 03/05/2021 [facility] 10 mg 12/10/2020 12:00:00 AM EDT tablet 30 TAKE ONE-HALF TABLET BY MOUTH TWICE A DAY NEEDED TAKE ONE-HALF TABLET BY MOUTH TWICE A DAY NEEDED SO LD: 03/05/2021 [facility] 150 mg 12/10/2020 12:00:00 AM EDT tablet 60 TAKE ONE TABLET BY MOUTH TWICE A DAY TAKE ONE TABLET BY MOUTH TWICE A DAY SOLD: 04/09/2021 [facility] 10 mg 12/10/2020 12:00:00 AM EDT tablet 30 TAKE ONE-HALF TABLET BY MOUTH TWICE A DAY NEEDED TAKE ONE-HALF TABLET BY MOUTH TWICE A DAY NEEDED SO LD: 12/31/2020 [facility] 10 mg 12/10/2020 12:00:00 AM EDT tablet 30 TAKE ONE-HALF TABLET BY MOUTH TWICE A DAY NEEDED TAKE ONE-HALF TABLET BY MOUTH TWICE A DAY NEEDED SO LD: 04/09/2021 [facility] 100 mg 12/10/2020 12:00:00 AM EDT tablet 60 TAKE TWO TABLETS BY MOUTH EVERY EVENING TAKE TWO TABLETS BY MOUTH EVERY EVENING SOLD: 04/09/2021 [facility] 150 mg 12/10/2020 12:00:00 AM EDT tablet 60 TAKE ONE TABLET BY MOUTH TWICE A DAY TAKE ONE TABLET BY MOUTH TWICE A DAY SOLD: 12/31/2020 [facility] 15 mg 11/11/2020 12:00:00 AM EST tablet 30 TAKE ONE TABLET BY MOUTH EVERY DAY WITH DINNER TAKE ONE TABLET BY MOUTH EVERY DAY WITH DINNER SOLD: [facility] 0.75 mg/0.5 mL 10/31/2020 12:00:00 AM EST pen injector 2 INJECT UNDER THE SKIN ONCE A WEEK DIRECTED INJECT UNDER THE SKIN ONCE A WEEK DIRECTED SOLD: 10/31/2020 [facility] 0.75 mg/0.5 mL 10/31/2020 12:00:00 AM EST pen injector 2 INJECT UNDER THE SKIN ONCE A WEEK DIRECTED INJECT UNDER THE SKIN ONCE A WEEK DIRECTED SOLD: 12/04/2020 [facility] Metformin hydrochloride 500 MG Oral Tablet metFORMIN ( GLUCOPHAGE) 500 MG tablet metFORMIN (GLUCOPHAGE) 500 MG tablet 10/30/2020 12:00:00 AM EST 500 m g Oral active Type 2 diabetes mellitus wit hout complication, without long-term current use of insulin Take 1 tablet (500 mg total) by mouth 2 (two) times a day with meals [facility] Type 2 diabetes mellitus without complic ation, without long-term current use of insulin meloxicam 15 MG Oral Tablet meloxicam (MOBIC) 15 MG ta blet meloxicam (MOBIC) 15 MG tablet 10/13/2020 12:00:00 AM EST active TAKE ONE TABLET BY MOUTH EVERY DAY WITH DINNER [facility] Loratadine 10 MG Oral Tablet loratadine (CLARITIN) 10 MG tablet loratadine (CLARITIN) 10 MG tablet 10/01/2020 12:00:00 AM EST active TAKE ONE TABLET BY MOUTH DAILY NEEDED FOR ALLERGY SYMPTOMS [facility] 15 mg 09/09/2020 12:00:00 AM EST tablet 30 TAKE ONE TABLET BY MOUTH EVERY DAY WITH DINNER TAKE ONE TABLET BY MOUTH EVERY DAY WITH DINNER SOLD: [facility] 15 mg 09/09/2020 12:00:00 AM EST tablet 30 TAKE ONE TABLET BY MOUTH EVERY DAY WITH DINNER TAKE ONE TABLET BY MOUTH EVERY DAY WITH DINNER SOLD: [facility] 2.5 mg 09/07/2020 12:00:00 AM EST tablet 30 TAKE ONE TABLET BY MOUTH EVERY DAY TAKE ONE TABLET BY MOUTH EVERY DAY SOLD: 04/09/2021 [facility] 2.5 mg 09/07/2020 12:00:00 AM EST tablet 30 TAKE ONE TABLET BY MOUTH EVERY DAY TAKE ONE TABLET BY MOUTH EVERY DAY SOLD: 03/05/2021 [facility] 2.5 mg 09/07/2020 12:00:00 AM EST tablet 90 TAKE ONE TABLET BY MOUTH EVERY DAY TAKE ONE TABLET BY MOUTH EVERY DAY SOLD: 09/16/2020 [facility] 2.5 mg 09/07/2020 12:00:00 AM EST tablet 30 TAKE ONE TABLET BY MOUTH EVERY DAY TAKE ONE TABLET BY MOUTH EVERY DAY SOLD: 05/12/2021 [facility] Lisinopril 2.5 MG Oral Tablet lisinopril (PRINIVIL,ZES TRIL) 2.5 MG tablet lisinopril (PRINIVIL,ZESTRIL) 2.5 MG tablet 09/07/2020 12:00:00 AM EST active TAKE ONE TABLET BY MOUTH MARY CARMEN [facility] 2.5 mg 09/07/2020 12:00:00 AM EST tablet 30 TAKE ONE TABLET BY MOUTH EVERY DAY TAKE ONE TABLET BY MOUTH EVERY DAY SOLD: 12/31/2020 [facility] 2.5 mg 09/07/2020 12:00:00 AM EST tablet 30 TAKE ONE TABLET BY MOUTH EVERY DAY TAKE ONE TABLET BY MOUTH EVERY DAY SOLD: 06/24/2021 [facility] 2.5 mg 09/07/2020 12:00:00 AM EST tablet 30 TAKE ONE TABLET BY MOUTH EVERY DAY TAKE ONE TABLET BY MOUTH EVERY DAY SOLD: 01/30/2021 [facility] 0.5 ML dulaglutide 1.5 MG/ML Auto-Inject or [Trulicity] [facility] 0.75 MG/0.5ML [facility] 0.75 MG/0.5ML SOPN 09/01/2020 12:00:00 AM EST active INJECT CONTENTS OF 1 PEN UNDER SKIN ONCE A WEEK DIR ECTED [facility] 0.75 mg/0.5 mL 09/01/2020 12:00:00 AM EST pen injector 2 INJECT CONTENTS OF 1 PEN UNDER SKIN ONCE A WEEK DIRECTED INJECT CONTENTS OF 1 PEN UNDER SKIN ONCE A WEEK DIRECTED SOLD: 09/03/2020 [facility] BLOOD SUGAR DIAGNOSTIC 08/31/2020 12:00:00 AM EST strip 50 USE TO TEST ONCE DAILY AND NEEDED USE TO TEST ONCE DAILY AND NEEDED SOLD: 09/03/2020 [facility] 0.5 ML dulaglutide 1.5 MG/ML Auto-Injector [Trulicity] [facility] 08/31/2020 12:00:00 AM EST active Ayah JEAN ([facility]) atorvastatin 20 MG Oral Tablet ATORVASTATIN CALCIUM 08/11/2020 1 2:00:00 AM EST tablet 30 TAKE ONE TABLET BY MOUTH EVERY D AY TAKE ONE TABLET BY MOUTH EVERY DAY SOLD: 08/12/2020 [facility] atorvastatin 20 MG Oral Tablet ATORVASTATIN CALCIUM 08/11/2020 1 2:00:00 AM EST tablet 30 TAKE ONE TABLET BY MOUTH EVERY D AY TAKE ONE TABLET BY MOUTH EVERY DAY SOLD: 01/30/2021 [facility] atorvastatin 20 MG Oral Tablet ATORVASTATIN CALCIUM 08/11/2020 1 2:00:00 AM EST tablet 30 TAKE ONE TABLET BY MOUTH EVERY D AY TAKE ONE TABLET BY MOUTH EVERY DAY SOLD: 11/11/2020 [facility] atorvastatin 20 MG Oral Tablet ATORVASTATIN CALCIUM 08/11/2020 1 2:00:00 AM EST tablet 30 TAKE ONE TABLET BY MOUTH EVERY D AY TAKE ONE TABLET BY MOUTH EVERY DAY SOLD: 09/16/2020 [facility] atorvastatin 20 MG Oral Tablet ATORVASTATIN CALCIUM 08/11/2020 1 2:00:00 AM EST tablet 30 TAKE ONE TABLET BY MOUTH EVERY D AY TAKE ONE TABLET BY MOUTH EVERY DAY SOLD: 12/31/2020 [facility] atorvastatin 20 MG Oral Tablet ATORVASTATIN CALCIUM 08/11/2020 1 2:00:00 AM EST tablet 30 TAKE ONE TABLET BY MOUTH EVERY D AY TAKE ONE TABLET BY MOUTH EVERY DAY SOLD: 10/14/2020 [facility] 10 mg 08/10/2020 12:00:00 AM EST tablet 30 TAKE 1/2 TABLET BY MOUTH TWICE A DAY NEEDED MAXIMUM DAILY DOSE = 1 TAKE 1/2 TABLET BY MOUTH TWICE A DAY NEEDED MAXIMUM DAILY DOSE = 1 SOLD: 11/11/2020 [facility] 10 mg 08/10/2020 12:00:00 AM EST tablet 30 TAKE 1/2 TABLET BY MOUTH TWICE A DAY NEEDED MAXIMUM DAILY DOSE = 1 TAKE 1/2 TABLET BY MOUTH TWICE A DAY NEEDED MAXIMUM DAILY DOSE = 1 SOLD: 10/14/2020 [facility] Cholecalciferol 2000 UNT Oral Capsule Ch olecalciferol (VITAMIN D3) 50 MCG (2000 UT) capsule Cholecalciferol (VITAMIN D3) 50 MCG (2000 UT) capsule 08/10/2020 12:00:00 AM EST 2000 U Oral active Take 2,0 00 Units by mouth daily [facility] 10 mg 08/10/2020 12:00:00 AM EST tablet 30 TAKE 1/2 TABLET BY MOUTH TWICE A DAY NEEDED MAXIMUM DAILY DOSE = 1 TAKE 1/2 TABLET BY MOUTH TWICE A DAY NEEDED MAXIMUM DAILY DOSE = 1 SOLD: 09/16/2020 [facility] 10 mg 08/10/2020 12:00:00 AM EST tablet 30 TAKE 1/2 TABLET BY MOUTH TWICE A DAY NEEDED MAXIMUM DAILY DOSE = 1 TAKE 1/2 TABLET BY MOUTH TWICE A DAY NEEDED MAXIMUM DAILY DOSE = 1 SOLD: 08/12/2020 [facility] atorvastatin 20 MG Oral Tablet atorvastatin (LIPITOR) 20 MG tablet atorvastatin (LIPITOR) 20 MG tablet 08/10/2020 12:00:00 AM EST active TAKE 1 TABLET [20MG TOTAL] BY MOUTH DAILY [facility] 100 mg 08/08/2020 12:00:00 AM EST tablet 60 TAKE TWO TABLETS BY MOUTH EVERY EVENING MAXIMUM DAILY DOSE = 2 TAKE TWO TABLETS BY MOUTH EVERY EVENING MAXIMUM DAILY DOSE = 2 SOLD: 10/14/2020 [facility] 150 mg 08/08/2020 12:00:00 AM EST tablet 60 TAKE ONE TABLET BY MOUTH TWICE A DAY MAXIMUM DAILY DOSE = 2 TAKE ONE TABLET BY MOUTH TWICE A DAY MAX IMUM DAILY DOSE = 2 SOLD: 08/12/2020 [facility] 100 mg 08/08/2020 12:00:00 AM EST tablet 60 TAKE TWO TABLETS BY MOUTH EVERY EVENING MAXIMUM DAILY DOSE = 2 TAKE TWO TABLETS BY MOUTH EVERY EVENING MAXIMUM DAILY DOSE = 2 SOLD: 09/16/2020 [facility] 150 mg 08/08/2020 12:00:00 AM EST tablet 60 TAKE ONE TABLET BY MOUTH TWICE A DAY MAXIMUM DAILY DOSE = 2 TAKE ONE TABLET BY MOUTH TWICE A DAY MAX IMUM DAILY DOSE = 2 SOLD: 09/16/2020 [facility] 150 mg 08/08/2020 12:00:00 AM EST tablet 60 TAKE ONE TABLET BY MOUTH TWICE A DAY MAXIMUM DAILY DOSE = 2 TAKE ONE TABLET BY MOUTH TWICE A DAY MAX IMUM DAILY DOSE = 2 SOLD: 10/14/2020 [facility] 100 mg 08/08/2020 12:00:00 AM EST tablet 60 TAKE TWO TABLETS BY MOUTH EVERY EVENING MAXIMUM DAILY DOSE = 2 TAKE TWO TABLETS BY MOUTH EVERY EVENING MAXIMUM DAILY DOSE = 2 SOLD: 08/12/2020 [facility] 100 mg 08/08/2020 12:00:00 AM EST tablet 60 TAKE TWO TABLETS BY MOUTH EVERY EVENING MAXIMUM DAILY DOSE = 2 TAKE TWO TABLETS BY MOUTH EVERY EVENING MAXIMUM DAILY DOSE = 2 SOLD: 11/11/2020 [facility] 150 mg 08/08/2020 12:00:00 AM EST tablet 60 TAKE ONE TABLET BY MOUTH TWICE A DAY MAXIMUM DAILY DOSE = 2 TAKE ONE TABLET BY MOUTH TWICE A DAY MAX IMUM DAILY DOSE = 2 SOLD: 11/11/2020 [facility] 40 mg 07/21/2020 12:00:00 AM EST capsule,delayed release (DR/EC) 30 TAKE ONE CAPSULE BY MOUTH DAILY TAKE ONE CAPSULE BY MOUTH DAILY SOLD: 12/31/2020 [facility] 10 mg 07/21/2020 12:00:00 AM EST tablet 30 TAKE ONE TABLET BY MOUTH DAILY NEEDED FOR ALLERGY SYMPTOMS TAKE ONE TABLET BY MOUTH DAILY NEEDED FOR ALLERGY SYMPTOMS SOLD: 12/31/2020 [facility] 40 mg 07/21/2020 12:00:00 AM EST capsule,delayed release (DR/EC) 30 TAKE ONE CAPSULE BY MOUTH DAILY TAKE ONE CAPSULE BY MOUTH DAILY SOLD: 09/03/2020 [facility] 10 mg 07/21/2020 12:00:00 AM EST tablet 30 TAKE ONE TABLET BY MOUTH DAILY NEEDED FOR ALLERGY SYMPTOMS TAKE ONE TABLET BY MOUTH DAILY NEEDED FOR ALLERGY SYMPTOMS SOLD: 09/03/2020 [facility] 40 mg 07/21/2020 12:00:00 AM EST capsule,delayed release (DR/EC) 30 TAKE ONE CAPSULE BY MOUTH DAILY TAKE ONE CAPSULE BY MOUTH DAILY SOLD: 07/23/2020 [facility] 10 mg 07/21/2020 12:00:00 AM EST tablet 30 TAKE ONE TABLET BY MOUTH DAILY NEEDED FOR ALLERGY SYMPTOMS TAKE ONE TABLET BY MOUTH DAILY NEEDED FOR ALLERGY SYMPTOMS SOLD: 07/23/2020 [facility] 10 mg 07/21/2020 12:00:00 AM EST tablet 30 TAKE ONE TABLET BY MOUTH DAILY NEEDED FOR ALLERGY SYMPTOMS TAKE ONE TABLET BY MOUTH DAILY NEEDED FOR ALLERGY SYMPTOMS SOLD: 01/30/2021 [facility] 40 mg 07/21/2020 12:00:00 AM EST capsule,delayed release (DR/EC) 30 TAKE ONE CAPSULE BY MOUTH DAILY TAKE ONE CAPSULE BY MOUTH DAILY SOLD: 10/14/2020 [facility] 10 mg 07/21/2020 12:00:00 AM EST tablet 30 TAKE ONE TABLET BY MOUTH DAILY NEEDED FOR ALLERGY SYMPTOMS TAKE ONE TABLET BY MOUTH DAILY NEEDED FOR ALLERGY SYMPTOMS SOLD: 10/14/2020 [facility] 40 mg 07/21/2020 12:00:00 AM EST capsule,delayed release (DR/EC) 30 TAKE ONE CAPSULE BY MOUTH DAILY TAKE ONE CAPSULE BY MOUTH DAILY SOLD: 01/30/2021 [facility] 40 mg 07/21/2020 12:00:00 AM EST capsule,delayed release (/DEVEN) 30 TAKE ONE CAPSULE BY MOUTH DAILY TAKE ONE CAPSULE BY MOUTH DAILY SOLD: 11/11/2020 [facility] 10 mg 07/21/2020 12:00:00 AM EST tablet 30 TAKE ONE TABLET BY MOUTH DAILY NEEDED FOR ALLERGY SYMPTOMS TAKE ONE TABLET BY MOUTH DAILY NEEDED FOR ALLERGY SYMPTOMS SOLD: 11/11/2020 [facility] 1.5 mg/0.5 mL 07/01/2020 12:00:00 AM EDT pen injector 2 INJECT 1.5MG UNDER THE SKIN ONCE A WEEK, DIRECTED INJECT 1.5MG UNDER THE SKIN ONCE A WEEK, DIRECTED SOLD: 08/12/2020 [facility] 1.5 mg/0.5 mL 07/01/2020 12:00:00 AM EDT pen injector 2 INJECT 1.5MG UNDER THE SKIN ONCE A WEEK, DIRECTED INJECT 1.5MG UNDER THE SKIN ONCE A WEEK, DIRECTED SOLD: 07/05/2020 [facility] 31 gauge x 3/16" 06/05/2020 12:00:00 AM EDT needle 100 USE ONCE DAILY USE ONCE DAILY SOLD: 09/16/2020 [facility] 15 mg 05/14/2020 12:00:00 AM EDT tablet 30 TAKE ONE TABLET BY MOUTH EVERY DAY WITH DINNER TAKE ONE TABLET BY MOUTH EVERY DAY WITH DINNER SOLD: 020 [facility] 15 mg 05/14/2020 12:00:00 AM EDT tablet 30 TAKE ONE TABLET BY MOUTH EVERY DAY WITH DINNER TAKE ONE TABLET BY MOUTH EVERY DAY WITH DINNER SOLD: 020 [facility] 100 mg 04/06/2020 12:00:00 AM EDT tablet 60 TAKE TWO TABLETS BY MOUTH EVERY DAY IN THE EVENING MAXIMUM DAILY DOSE = 2 TAKE TWO TABLETS BY MOUTH EVERY DAY IN THE EVENING MAXIMUM DAILY DOSE = 2 SOLD: 07/14/2020 [facility] 10 mg 04/06/2020 12:00:00 AM EDT tablet 30 TAKE 1/2 TABLET BY MOUTH TWICE A DAY NEEDED MAXIMUM DAILY DOSE = 1 TAKE 1/2 TABLET BY MOUTH TWICE A DAY NEEDED MAXIMUM DAILY DOSE = 1 SOLD: 07/14/2020 [facility] 150 mg 04/06/2020 12:00:00 AM EDT tablet 60 TAKE ONE TABLET BY MOUTH TWICE A DAY MAXIMUM DAILY DOSE = 2 TAKE ONE TABLET BY MOUTH TWICE A DAY MAX IMUM DAILY DOSE = 2 SOLD: 07/14/2020 [facility] 50 mcg (2,000 unit) 02/10/2020 12:00:00 AM EDT capsule 30 TAKE ONE CAPSULE BY MOUTH EVERY DAY TAKE ONE CAPSULE BY MOUTH EVERY DAY SOLD: 07/14/2020 [facility] 50 mcg (2,000 unit) 02/10/2020 12:00:00 AM EDT capsule 30 TAKE ONE CAPSULE BY MOUTH EVERY DAY TAKE ONE CAPSULE BY MOUTH EVERY DAY SOLD: 08/12/2020 [facility] atorvastatin 20 MG Oral Tablet ATORVASTATIN CALCIUM 01/30/2020 1 2:00:00 AM EDT tablet 30 TAKE 1 TABLET [20MG TOTAL] BY MO UTH DAILY TAKE 1 TABLET [20MG TOTAL] BY MOUTH DAILY SOLD: 07/14/2020 [facility] Insurance Providers Payer name Policy type / Coverage type Policy ID Covered green party ID Covered green party's relationship to villavicencio Policy Villavicencio Plan Information [employer] (pr[facility] [id number] Family Dependent Commercial [employer] (pr) Medigap Part B 10/13/04 [id number] Family Dependent 10/13/04 [place] Medigap Part [place] [id number] Family Dependent [id number] [place] Medigap [place] [id number] Family Dependent BS CHP (DO Not Use) Health Maintenance Organization (HMO) [id number] Family Dependent Z [id number] BS CHP (DO Not Use) Health Maintenance Organization (HMO) [id number] Family Dependent Z [id number] BS CHP (DO Not Use) Health Maintenance Organization (O) [id number] Family Dependent Z [id number] BS CHP (DO Not Use) Health Maintenance Organization (O) [id number] Family Dependent Z [id number] BS CHP (DO Not Use) Health Maintenance Organization (O) [id number] Family Dependent Z [id number] BS Child HLTH PL(ZFB,Vyb) Health Maintenance Organization (O) [id number] Family Dependent BS CHP (DO Not Use) Health Maintenance Organization (O) [id number] Family Dependent [id number] BS CHP (DO Not Use) Health Maintenance Organization (O) [id number] Family Dependent [id number] BS CHP (DO Not Use) Health Maintenance Organization (O) [id number] Family Dependent [id number] BS CHP (DO Not Use) Health Maintenance Organization (O) [id number] Family Dependent Z [id number] BS CHP (DO Not Use) Health Maintenance Organization (O) [id number] Family Dependent Z [id number] BS CHP (DO Not Use) Health Maintenance Organization (HMO) [id number] Family Dependent [id number] BS Child HLTH PL(ZFB,Vyb) Health Maintenance Organization (HMO) [id number] Family Dependent Z [id number] BS CHP (DO Not Use) Health Maintenance Organization (O) [id number] Family Dependent [id number] BS Child HLTH PL(ZFB,Vyb) Health Maintenance Organization (O) [id number] Family Dependent Z [id number] BS CHP (DO Not Use) Health Maintenance Organization (HMO) [id number] Family Dependent [id number] Medicaid P [id number] S [id number] MEDICAID M [id number] Self [id number] EXCELLUS I [id number] Self [id number] Managed Care - Community Plan [facility] S [id number] S [id number] [facility] I [id number] Self [id number] Medicaid S [id number] S [id number] Managed Care - Community Plan [facility] P [id number] S [id number] [facility] Community Plan Commercial [id number] Self [id number] [facility] Community Plan Commercial [id number] Self [id number] [facility] Community Plan Commercial [id number] Self Medicaid S [id number] S [id number] Managed Care - Community Plan [facility] P [id number] S [id number] Managed Care - Community Plan [employer] P [id number] S [id number] Managed Care - Community Plan [employer] P [id number] S [id number] Medicaid S [id number] S [id number] Managed Care - Community Plan [employer] P [id number] S [id number] Managed Care - [facility] Community Plan P [id number] S [id number] Medicaid P [id number] S [id number] [facility] MEDICAID [id number] Shruthi [id number] CAM [id number] SP [id number] 100 UNHC COMMUNITY PLAN MCDHMO [id number] SP [id number] CAM [id number] SP [id number] [id number] [facility] [place] [id number] 18 [id number] [facility] [place] [id number] 18 [id number] [place] [id number] SP [id number] UNHC COMMUNITY PLAN MCDHMO [id number] SP [id number] MEDICAID [id number] SP [id number] Managed Care - [facility] Community Plan P [id number] S [id number] [facility](MCAID) O [id number] S [id number] UN[employer] COMMUNITY PLAN MCDHMO [id number] SP [id number] [facility]-Medicaid [id number] ANS-Medicaid [id number] [facility] [place] [id number] 18 [id number] ANSI-Medicaid [id number] [facility]-Medicaid [id number] [facility] Health Maintenance Organization ([facility]) [id number] Self [id number] ANSI-Medicaid [id number] ANSI-Medicaid [id number] [facility] MCDO [id number] SP [id number] [facility] Health Maintenance Organization (O) [id number] Self 1 [id number] [facility] Health Maintenance Organization (O) [id number] Self 1 [id number] [facility] Health Maintenance Organization (O) [id number] Self 1 [id number] [facility] Health Maintenance Organization (O) [id number] Self 1 [id number] [facility] Health Maintenance Organization (O) [id number] Self 1 [id number] [facility] XIX [id number] 18 [id number] [facility] MCDO [id number] SP [id number] [facility] Health Maintenance Organization (O) [id number] Self 1 [id number] MEDICARE [id number] SP [id number] [facility] Health Maintenance Organization (O) [id number] Self [id number] [facility] [id number] Self 1 [id number] [facility] O [id number] S [id number] [facility] Health Maintenance Organization (HMO) [id number] Self UNHC AMERICHOICE XIX -O [id number] 18 [id number] Managed Care - Community Plan [facility] S UNAVAILABLE S UNAVAILABLE [employer] AGUIL[employer] PLAN [id number] SP [id number] MEDICAID P [id number] S [id number] [employer] AGUILAR PLAN [id number] SP [id number] BLUE CHOICE OPTION O [id number] S [id number] MEDICAID W [id number] S [id number] Problems, Conditions, and Diagnoses Code Display Name Description Problem Type Effective Dates Data Source(s) D99735 Other exterminator helper termite (current) drug therapy O ther exterminator helper termite (current) drug therapy Diagnosis 07/09/2021 04:29:00 PM EDT [facility] 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 Diagnosis 07/09/2021 04:29:00 PM EDT [facility] F603 Borderline personality disorder Borderline personality disorder Diagnosis 07/09/2021 04:29:00 PM EDT [facility] Z87.891 [id number] History of nicotine use Problem 08/09/2021 1 2:00:00 AM EST eCW1 ([facility]) G56.03 10490750 Bilateral carpal tunnel syndrome Problem 04/28/2021 12:00:00 AM EDT eCW1 ([facility]) [id number] Type 2 diabetes mellitus Type 2 diabetes mellitus Prob judy 04/27/2021 12:00:00 AM EDT [facility] ([facility], ) R20.2 47346864 Paresthesia of skin Problem 04/01/2021 12:00 :00 AM EDT eCW1 ([facility]) G89.29 01063584 Other chronic pain Problem 02/11/2021 12:00: 00 AM EDT eCW1 ([facility]) M13.0 162622870 Polyarthropathy involving hand Problem 01/22/2021 12:00:00 AM EDT eCW1 ([facility]) M13.0 77752974 Polyarthropathy Problem 01/22/2021 12:00:00 AM EDT eCW1 ([facility]) Z68.41 303658970 Body mass index [BMI]40.0-44.9, adult Pro blem 12/03/2020 12:00:00 AM EDT eCW1 ([facility]) E66.01 860451035 Morbid (severe) obesity due to excess dyan ories Problem 12/03/2020 12:00:00 AM EDT eCW1 ([facility]) Z01.419 Gynecological examination normal Encount er for routine gynecological examination Problem 12/01/2020 12:00:00 AM EDT eCW1 ([facility]) E11.9 Diabetes mellitus Diabetes mellitus 86002392 11/11/2020 12:00:00 AM [facility] Z72.0 Tobacco user Tobacco user 40386498 07/29/2020 12:00:00 A M [facility] G47.33 Obstructive sleep apnea Obstructive sleep apnea 436297 07/29/2020 12:00:00 AM [facility] E66.9 Obesity Obesity 19245634 07/29/2020 12:00:00 AM [facility] F41.8 Mixed anxiety depressive disorder Mixed anxiety depressive disorder 97515419 07/29/2020 12:00:00 AM [facility] E78.5 Hyperlipidemia Hyperlipidemia 18583168 07/29/2020 12:00: 00 AM [facility] E74.39 Glucose intolerance Glucose intolerance 96064837 1 09/28/2019 12:00:00 AM EST [facility] R07.9 Chest pain Chest pain 39758556 07/29/2020 12:00:00 AM ES T [facility] I10 Benign essential hypertension Benign essential hyperte nsion 38976624 07/29/2020 12:00:00 AM EST [facility] J30.89 43580189 Non-seasonal allergic rhinitis, unspecifi ed trigger Problem 07/20/2020 12:00:00 AM EST eCW1 ([facility]) E11.9 [id number] Type 2 diabetes kala itus without complication, without long-term current use of insulin Problem 07/20/2020 12:00:00 AM EST eCW1 ([facility]) Surgeries/Procedures Procedure Description Date Indications Data Source(s) OFFICE OUTPATIENT VISIT 25 MINUTES 07/28/2021 12:00:00 AM EST [facility] ([facility] ) OFFICE OUTPATIENT VISIT 25 MINUTES 07/27/2021 12:00:00 AM EST [facility] ([facility]) RADIOLOGIC EXAM KNEE COMPLETE 4/MORE VIEWS 07/21/2021 12:00:00 AM EST [facility] ([facility] ) OFFICE OUTPATIENT VISIT 25 MINUTES 07/21/2021 12:00:00 AM EST [facility] ([facility] ) OFFICE OUTPATIENT VISIT 25 MINUTES 07/09/2021 12:00:00 AM EDT [facility] ([facility]) OFFICE OUTPATIENT VISIT 25 MINUTES 07/08/2021 12:00:00 AM EDT [facility] ([facility], ) OFFICE OUTPATIENT VISIT 25 MINUTES 06/18/2021 12:00:00 AM EDT [facility] ([facility]) OFFICE OUTPATIENT VISIT 25 MINUTES 06/03/2021 12:00:00 AM EDT [facility] ([facility], ) Needle electromyography, each extremity, with related paraspinal areas, when performed, done with nerve conduction, amplitude and latency/velocity study; complete, five or more muscles studied, innervated by three or more nerves or four or more spinal levels (list separately in addition to the code for primary procedure). 05/11/2021 12:00:00 AM EDT MEDEN T ([facility], ) Needle electromyography, each extremity, with related paraspinal areas, when performed, done with nerve conduction, amplitude and latency/velocity study; complete, five or more muscles studied, innervated by three or more nerves or four or more spinal levels (list separately in addition to the code for primary procedure). 05/11/2021 12:00:00 AM EDT MEDEN T ([facility], ) Needle Electromyography Non Extremity Done With Nerve Conduc tion 05/11/2021 12:00:00 AM EDT [facility] ([facility], ) Needle Electromyography Non Extremity Done With Nerve Conduc tion 05/11/2021 12:00:00 AM EDT [facility] ([facility], ) 74240 Nerve conduction studies 13 or more studies NEW 201205/11/2021 12:00:00 AM EDT [facility] ([facility], ) OFFICE OUTPATIENT NEW 45 MINUTES 04/27/2021 12:00:00 A M EDT [facility] ([facility], ) Measure Blood Oxygen Level Continuous Overnight Monitor 04/06/2021 12:00:00 AM EDT [facility] ([facility], ) OFFICE OUTPATIENT VISIT 25 MINUTES 02/25/2021 12:00:00 AM EDT [facility] ([facility]) OFFICE OUTPATIENT VISIT 15 MINUTES 02/20/2021 12:00:00 AM EDT [facility] ([facility]) OFFICE OUTPATIENT VISIT 15 MINUTES 02/15/2021 12:00:00 AM EDT [facility] ([facility], ) Diabetic Foot Exam 01/14/2021 12:00:00 AM EDT [facility] ([facility] ) ECG ROUTINE ECG W/LEAST 12 LDS W/I&R <td>POCT AMB EKG</td><td>Routine</td><td>11/11/2020 10:50 PM EST</td><td> Chest pain, unspecified type Benign essential hypertension</td><td> </td> 11/12/2020 03:50:00 AM EST Benign essential hypertensionChest pain, unspecified t e [facility] Benign essential hypertension Chest pain, unspecified type Spirometry 10/29/2020 12:00:00 AM ELSY JEAN ([facility], ) OFFICE OUTPATIENT NEW 45 MINUTES 10/29/2020 12:00:00 A M ELSY BARRIGA ([facility], ) Results ID Date Data Source [id number] 08/13/2021 10:55:00 AM EST [facility] Name Value Range Interpretation Code Description Data Unique rce(s) Supporting Document(s) SARS-CoV-2 (COVID-19) RNA [Presence] in Respiratory specimen by JULIANNE with probe detection Not Detected [facility] This lab was ordered by [facility] and reported by [facility]. ID Date Data Source FREE T4 & TSH PANEL 08/09/2021 12:00:00 AM EST eCW1 ([facility]) Name Value Range Interpretation Code Description Data Unique rce(s) Supporting Document(s) 0.71 0.76-1.46 FREE T4 eCW1 ([facility]) 2.130 0.358-3.740 THYROID STIMULATING HORM ONE eCW1 ([facility]) ID Date Data Source Comprehensive Metabolic Profile (CMP) 08/09/2021 12:00:00 AM EST eCW1 ([facility]) Name Value Range Interpretation Code Description Data Unique rce(s) Supporting Document(s) 100 70-100 GLUCOSE, FASTING eCW1 ([facility]) > 60.0 >60 GLOMERULAR FILTRATION RATE eCW 1 ([facility]) 0.61 0.55-1.30 CREATININE FOR GFR eCW1 ([facility]) 7 7-18 BLOOD UREA NITROGEN eCW1 ([facility]) 108 98-107 CHLORIDE LEVEL eCW1 ([facility]) 141 136-145 SODIUM LEVEL eCW1 ([facility]) 3.9 3.5-5.1 POTASSIUM SERUM eCW1 ([facility]) 8.8 8.5-10.1 CALCIUM LEVEL eCW1 ([facility]) 12 7-37 AST/SGOT eCW1 ([facility]) 28 21-32 CARBON DIOXIDE LEVEL eCW1 ([facility]) 28 12-78 ALT/SGPT eCW1 ([facility]) 75 45-117 ALKALINE PHOSPHATASE eCW1 ([facility]) 7.0 6.4-8.2 TOTAL PROTEIN eCW1 ([facility]) 0.2 0.2-1.0 BILIRUBIN,TOTAL eCW1 ([facility]) 3.6 3.2-5.2 ALBUMIN eCW1 ([facility]) 1.1 1.2-2.2 ALBUMIN/GLOBULIN RATIO eCW1 ([facility]) ID Date Data Source NT-PRO BNP 08/09/2021 12:00:00 AM EST eCW1 ([facility]) Name Value Range Interpretation Code Description Data Unique rce(s) Supporting Document(s) 47 <125 NT-PRO BNP eCW1 [facility]) ID Date Data Source PT & APTT 08/09/2021 12:00:00 AM EST eCW1 ([facility]) Name Value Range Interpretation Code Description Data Unique rce(s) Supporting Document(s) 13.9 12.7-14.5 PROTHROMBIN TIME eCW1 ([facility]) 1.03 INR eCW1 ([facility]) 35.0 25.9-37.0 PARTIAL THROMBOPLASTIN TI ME eCW1 ([facility]) ID Date Data Source [id number] 08/09/2021 12:00:00 AM EST eCW1 ([facility]) Name Value Range Interpretation Code Description Data Unique rce(s) Supporting Document(s) Hemoglobin A1c/Hemoglobin.total in Blood 5.8 HEMOGLOBIN A1c eCW1 ([facility]) ID Date Data Source CBC with Differential 08/09/2021 12:00:00 AM EST eCW1 ([facility]) Name Value Range Interpretation Code Description Data Unique rce(s) Supporting Document(s) 9.1 4.0-10.0 WHITE BLOOD COUNT eCW1 ([facility]) 4.70 4.00-5.40 RED BLOOD COUNT eCW1 ([facility]) 13.9 12.0-15.5 HEMOGLOBIN eCW1 ([facility]) 42.3 36.0-47.0 HEMATOCRIT eCW1 ([facility]) 29.6 27.0-33.0 MEAN CORPUSCULAR HEMOGLOB IN eCW1 ([facility]) 90.0 80.0-96.0 MEAN CORPUSCULAR VOLUME e CW1 ([facility]) 32.9 32.0-36.5 MEAN CORPUSCULAR HGB CONC eCW1 ([facility]) 12.2 11.5-14.5 RED CELL DISTRIBUTION WID TH eCW1 ([facility]) 35.7 24.0-44.0 LYMPH % eCW1 ([facility]) 230 150-450 PLATELET COUNT, AUTOMATED eCW1 ([facility]) 57.6 36.0-66.0 NEUTROPHILS % eCW1 ([facility]) 5.4 2.0-8.0 MONO % eCW1 ([facility]) 0.7 0.0-3.0 EOS % eCW1 ([facility]) 3.2 1.5-5.0 LYMPH # eCW1 ([facility]) 0.3 0.0-1.0 BASO % eCW1 ([facility]) 5.2 1.5-8.5 NEUTROPHILS # eCW1 ([facility]) 0.1 0.0-0.5 EOS # eCW1 ([facility]) 0.5 0.0-0.8 MONO # eCW1 ([facility]) 0.0 0.0-0.2 BASO # eCW1 ([facility]) ID Date Data Source [id number] 07/28/2021 03:21:00 PM EST [facility] ([facility] ) Name Value Range Interpretation Code Description Data Unique rce(s) Supporting Document(s) Glucose [Mass/volume] in Serum or Plasma [address] [facility] [facility] Hemoglobin A1c/Hemoglobin.total in Blood 5.7 [facility] ([facility]) ID Date Data Source [id number] 07/27/2021 12:00:00 AM EST [facility] Name Value Range Interpretation Code Description Data Unique rce(s) Supporting Document(s) SARS-CoV2 Rapid Antigen Negative [facility] This lab was ordered by [facility] and reported by [facility]. ID Date Data Source [id number] 01/14/2021 01:23:00 PM EDT [facility] ([facility]) Name Value Range Interpretation Code Description Data Unique rce(s) Supporting Document(s) Glucose [Mass/volume] in Serum or Plasma 98 [facility] ([facility]) Hemoglobin A1c/Hemoglobin.total in Blood 5.4 [facility] ([facility]) ID Date Data Source [id number] 10/29/2020 01:46:00 PM EST MEDENT ([facility], ) Name Value Range Interpretation Code Description Data Unique rce(s) Supporting Document(s) PDFReport Laboratory test result MEDENT ([facility], ) FVC-Pre 3.75 L MEDENT ([facility]) FVC-%Pred-Pre 109 L MEDENT ([facility]) FVC-Pred 3.42 L [facility] ([facility]) Fev1-Pred 2.93 L [facility] ([facility]) FVC-LLN 2.79 L [facility] ([facility]) Fev1-Pre 3.27 L [facility] ([facility]) Fev1-%Pred-Pre 111 L MED[facility] ([facility]) Fev1-LLN 2.39 L [facility] ([facility]) Fev6-Pred 3.40 L [facility] ([facility]) Fev6-Pre 3.75 L [facility] ([facility]) Fev6-LLN 2.79 L [facility] ([facility]) Fev6-%Pred-Pre 110 L [facility] ([facility]) Drf7miv-Zjcd 85 % MEDENT ([facility]) Plr5rws-Anr 87 % [facility] ([facility]) Zpg0mpo-Fsun 99 % [facility] ([facility]) Zij6jdp-%Pred-Pre 103 % MEDENT ([facility]) Atf8npi-GTJ 75 % [facility] ([facility]) Sue6nnf-Fpr 100 % [facility] ([facility]) Ead2hgj-%Pred-Pre 100 % [facility] ([facility]) FEFMax-%Pred-Pre 87 L/E/sec MED[facility] ([facility]) FEFMax-Pre 5.73 L/E/sec MEDENT ([facility]) FEFMax-Pred 6.54 L/E/sec MEDENT ([facility]) FEFMax-LLN 4.98 L/E/sec [facility] ([facility]) Rkv8562-Eaku 3.32 L/E/sec MEDENT ([facility]) Eph5234-Aet 4.25 L/E/sec MEDENT ([facility]) Vca8084-%Pred-Pre 127 L/E/sec MEDENT ([facility]) Hic8047-AAN 2.20 L/E/sec [facility] ([facility]) ExpTime-Pre 5.79 sec MEDENT ([facility]) Ssu9rae1-Rcy 87 % [facility] ([facility]) Ugt1ijj2-Xtph 86 % [facility] ([facility]) Czi7asi2-%Pred-Pre 102 % MED[facility] ([facility]) Ifm2jbp1-RJM 77 % [facility] ([facility]) ID Date Data Source [id number] 07/01/2020 11:59:00 AM EDT [facility] ([facility]) Name Value Range Interpretation Code Description Data Unique rce(s) Supporting Document(s) Glucose [Mass/volume] in Serum or Plasma 169 [facility] ([facility]) Hemoglobin A1c/Hemoglobin.total in Blood Laboratory test result [facility]US ([facility]) Procedure Social History Code Duration Value Status Description Data Source(s ) Smoking 08/09/2021 12:00:00 AM EST Former Smoker completed Former Smoker eCW1 ([facility]) Smoking 08/09/2021 12:00:00 AM EST Former Smoker completed Former Smoker eCW1 ([facility]) Smoking 07/28/2021 12:00:00 AM EST Patient is a former smoker completed Patient is a former smoker LINUS ([facility]) Smoking 04/01/2021 12:00:00 AM EDT Former Smoker completed Former Smoker eCW1 ([facility]) Smoking 04/01/2021 12:00:00 AM EDT Former Smoker completed Former Smoker eCW1 ([facility]) Smoking 04/01/2021 12:00:00 AM EDT Former Smoker completed Former Smoker eCW1 ([facility]) Smoking 04/01/2021 12:00:00 AM EDT Former Smoker completed Former Smoker eCW1 ([facility]) Smoking 04/01/2021 12:00:00 AM EDT Former Smoker completed Former Smoker eCW1 ([facility]) Smoking 04/01/2021 12:00:00 AM EDT Former Smoker completed Former Smoker eCW1 ([facility]) Smoking 02/15/2021 12:00:00 AM EDT Patient is a former smoker completed Patient is a former smoker LINUS ([facility], ) Smoking 01/22/2021 12:00:00 AM EDT Former Smoker completed Former Smoker eCW1 ([facility]) Smoking 01/22/2021 12:00:00 AM EDT Former Smoker completed Former Smoker eCW1 ([facility]) Smoking 01/22/2021 12:00:00 AM EDT Former Smoker completed Former Smoker eCW1 ([facility]) Smoking 12/03/2020 12:00:00 AM EDT Former Smoker completed Former Smoker eCW1 ([facility]) Alcohol intake 11/11/2020 12:00:00 AM EST Not Currently completed [facility] Smoking 11/11/2020 12:00:00 AM EST Current every day smoker co mpleted Current every day smoker [facility] Smoking 07/20/2020 12:00:00 AM EST Former Smoker completed Former Smoker eCW1 ([facility]) Vital Signs ID Date Data Source UNK Name Value Range Interpretation Code Description Data Source(s) Body weight 211 [lb_av] 211 [lb_av] eCW1 ([facility]) Body weight 95.71 kg 95.71 kg eCW1 ([facility]) Body height 61.5 [in_i] 61.5 [in_i] eCW1 ([facility]) Body mass index (BMI) [Ratio] 39.22 kg/m2 39.22 kg/m2 W1 ([facility]) Heart rate 82 /min 82 /min eCW1 ([facility]) Respiratory rate 20 /min 20 /min eCW1 ([facility]) Body temperature 97.6 [degF] 97.6 [degF] eCW1 ( [facility]) Systolic blood pressure 124 mm[Hg] 124 mm[Hg] e CW1 ([facility]) Diastolic blood pressure 70 mm[Hg] 70 mm[Hg] eCW1 ([facility]) Systolic blood pressure 124 mm[Hg] 124 mm[Hg] M EDENT ([facility] ) Oxygen saturation in Arterial blood by Pulse oximetry 98 % 98 % MEDENT ([facility]) Diastolic blood pressure 68 mm[Hg] 68 mm[Hg] MEDENT ([facility]) Heart rate 78 /min 78 /min MEDENT ([facility]) Body height 62.6 [in_i] 62.6 [in_i] MEDENT ([facility]) 5'2.60" Body weight 209.00 [lb_av] 209.00 [lb_av] MEDEN T ([facility]) Body mass index (BMI) [Ratio] 37.5 kg/m2 37.5 k g/m2 MEDENT ([facility]) Systolic blood pressure 138 mm[Hg] 138 mm[Hg] M EDENT ([facility]) Diastolic blood pressure 78 mm[Hg] 78 mm[Hg] MEDENT ([facility], [facility]) Heart rate 80 /min 80 /min MEDENT ([facility], [facility]) Respiratory rate 20 /min 20 /min MEDENT ( [facility], [facility]) Oxygen saturation in Arterial blood by Pulse oximetry 99 % 99 % MEDENT ([facility], [facility]) Body temperature 98.0 [degF] 98.0 [degF] MEDENT ([facility], [facility]) Body weight 209.00 [lb_av] 209.00 [lb_av] MEDEN T ([facility], [facility]) Body height 61 [in_i] 61 [in_i] MEDENT ([facility], [facility]) 5'1" Body mass index (BMI) [Ratio] 39.5 kg/m2 39.5 k g/m2 MEDENT ([facility], [facility]) Body temperature 97.4 [degF] 97.4 [degF] MEDENT ([facility]) Body height 62 [in_i] 62 [in_i] MEDENT ([facility]) 5'2" Body weight 212.00 [lb_av] 212.00 [lb_av] MEDEN T ([facility]) Body mass index (BMI) [Ratio] 38.8 kg/m2 38.8 k g/m2 MEDENT ([facility]) Body temperature 97.6 [degF] 97.6 [degF] MEDENT ([facility], ) Body temperature 97.0 [degF] 97.0 [degF] MEDENT ([facility], ) Body weight 214 [lb_av] 214 [lb_av] eCW1 ([facility]) Body height 61.5 [in_i] 61.5 [in_i] eCW1 ([facility]) Body mass index (BMI) [Ratio] 39.78 kg/m2 39.78 kg/m2 eCW1 ([facility]) Heart rate 77 /min 77 /min eCW1 ([facility]) Respiratory rate 18 /min 18 /min eCW1 ([facility]) Body temperature 96.9 [degF] 96.9 [degF] eCW1 ( [facility]) Systolic blood pressure 126 mm[Hg] 126 mm[Hg] e CW1 ([facility]) Diastolic blood pressure 74 mm[Hg] 74 mm[Hg] eCW1 ([facility]) Systolic blood pressure 138 mm[Hg] 138 mm[Hg] M EDENT ([facility], [facility]) Diastolic blood pressure 82 mm[Hg] 82 mm[Hg] MEDENT ([facility], [facility]) Heart rate 82 /min 82 /min MEDENT ([facility], [facility]) Respiratory rate 16 /min 16 /min [facility]) Oxygen saturation in Arterial blood by Pulse oximetry 98 % 98 % MEDENT ([facility]) Body temperature 98.0 [degF] 98.0 [degF] MEDENT ([facility], [facility]) Body weight 208.00 [lb_av] 208.00 [lb_av] MEDEN T ([facility]) Body height 61 [in_i] 61 [in_i] [facility] 5'1" Body mass index (BMI) [Ratio] 39.3 kg/m2 39.3 k g/m2 [facility] ([facility]) Body surface area Derived from formula 1.93 m[address] [facility] ([facility], ) Systolic blood pressure 126 mm[Hg] 126 mm[Hg] M EDENT ([facility], ) Diastolic blood pressure 78 mm[Hg] 78 mm[Hg] MEDENT ([facility], ) Heart rate 79 /min 79 /min [facility] ([facility], ) Oxygen saturation in Arterial blood by Pulse oximetry 98 % 98 % [facility] ([facility], ) Body height 61 [in_i] 61 [in_i] MEDENT ([facility], ) 5'1" Body weight 210.38 [lb_av] 210.38 [lb_av] MEDEN T ([facility]) Body mass index (BMI) [Ratio] 39.7 kg/m2 39.7 k g/m2 [facility] ([facility]) [place] body weight 105 [lb_av] 105 [lb_av] MEDEN T ([facility]) Body weight 95.426 kg 95.426 kg [facility] ([facility]) Body surface area Derived from formula 1.93 m2 1.93 m2 [facility] ([facility]) Oxygen saturation in Arterial blood by Pulse oximetry 98 % 98 % [facility] ([facility]) Body weight 210.38 [lb_av] 210.38 [lb_av] MEDEN T ([facility]) Body mass index (BMI) [Ratio] 39.7 kg/m2 39.7 k g/m2 [facility] ([facility]) [place] body weight 105 [lb_av] 105 [lb_av] MEDEN T ([facility]) Body height 61 [in_i] 61 [in_i] [facility]) 5'1" Body weight 95.426 kg 95.426 kg [facility] ([facility]) Body weight 215 [lb_av] 215 [lb_av] eCW1 ([facility]) Body height 61.5 [in_i] 61.5 [in_i] eCW1 ([facility]) Body mass index (BMI) [Ratio] 39.96 kg/m2 39.96 kg/m2 eCW1 ([facility]) Heart rate 89 /min 89 /min eCW1 ([facility]) Respiratory rate 18 /min 18 /min eCW1 ([facility]) Body temperature 97.3 [degF] 97.3 [degF] eCW1 ( [facility]) Systolic blood pressure 128 mm[Hg] 128 mm[Hg] e CW1 ([facility]) Diastolic blood pressure 74 mm[Hg] 74 mm[Hg] eCW1 ([facility]) Systolic blood pressure 136 mm[Hg] 136 mm[Hg] M EDENT ([facility]) Diastolic blood pressure 86 mm[Hg] 86 mm[Hg] MEDENT ([facility]) Heart rate 81 /min 81 /min MEDENT ([facility]) Body temperature 97.1 [degF] 97.1 [degF] MEDENT ([facility]) Body height 62.6 [in_i] 62.6 [in_i] MEDENT ([facility]) 5'2.60" Body weight 216.12 [lb_av] 216.12 [lb_av] MEDEN T ([facility]) Body mass index (BMI) [Ratio] 38.8 kg/m2 38.8 k g/m2 MEDENT ([facility]) Oxygen saturation in Arterial blood by Pulse oximetry 96 % 96 % MEDENT ([facility]) Body weight 217 [lb_av] 217 [lb_av] eCW1 ([facility]) Body weight 98.43 kg 98.43 kg [facility] ([facility]) Body height 61.5 [in_i] 61.5 [in_i] eCW1 ([facility]) Body mass index (BMI) [Ratio] 40.33 kg/m2 40.33 kg/m2 eCW1 ([facility]) Systolic blood pressure 126 mm[Hg] 126 mm[Hg] e CW1 ([facility]) Diastolic blood pressure 72 mm[Hg] 72 mm[Hg] eCW1 ([facility]) Systolic blood pressure 110 mm[Hg] 110 mm[Hg] [facility] Diastolic blood pressure 80 mm[Hg] 80 mm[Hg] [facility] Heart rate 67 /min 67 /min [facility] Body height 154.9 cm 154.9 cm [facility] Body weight 97.523 kg 97.523 kg [facility] Body mass index (BMI) [Ratio] 40.62 kg/m2 40.62 kg/m2 [facility] Oxygen saturation in Arterial blood by Pulse oximetry 98 % 98 % [facility] Body height 61 [in_i] 61 [in_i] [facility] ([facility]) 5'1" [place] body weight 105 [lb_av] 105 [lb_av] MEDEN T ([facility]) Heart rate 66 /min 66 /min [facility] ([facility]) Oxygen saturation in Arterial blood by Pulse oximetry 97 % 97 % [facility] ([facility]) Body temperature 96.6 [degF] 96.6 [degF] [facility] ([facility]) [place] body weight 105 [lb_av] 105 [lb_av] MEDEN T ([facility]) Body weight 97.524 kg 97.524 kg [facility] ([facility]) Body surface area Derived from formula 1.95 m2 1.95 m2 [facility] ([facility]) Systolic blood pressure 120 mm[Hg] 120 mm[Hg[facility] Diastolic blood pressure 80 mm[Hg] 80 mm[Hg] [facility] ([facility]) Body height 61 [in_i] 61 [in_i] [facility] ([facility]) 5'1" Body weight 215.00 [lb_av] 215.00 [lb_av] MEDEN T ([facility]) Body mass index (BMI) [Ratio] 40.6 kg/m2 40.6 k g/m2 [facility] ([facility]) Oxygen saturation in Arterial blood by Pulse oximetry 97 % 97 % [facility] ([facility]) Body temperature 96.6 [degF] 96.6 [degF] [facility] ([facility]) Body weight 215.00 [lb_av] 215.00 [lb_av] MEDEN T ([facility]) Body mass index (BMI) [Ratio] 40.6 kg/m2 40.6 k g/m2 [facility] ([facility]) Body weight 97.524 kg 97.524 kg [facility] ([facility]) Body surface area Derived from formula 1.95 m2 1.95 m2 [facility] ([facility]) Body weight 218 [lb_av] 218 [lb_av] eCW1 ([facility]) Body height 61.5 [in_i] 61.5 [in_i] eCW1 ([facility]) Body mass index (BMI) [Ratio] 40.52 kg/m2 40.52 kg/m2 eCW1 ([facility]) Heart rate 80 /min 80 /min eCW1 ([facility]) Respiratory rate 18 /min 18 /min eCW1 ([facility]) Body temperature 97.8 [degF] 97.8 [degF] eCW1 ( [facility]) Systolic blood pressure 110 mm[Hg] 110 mm[Hg] e CW1 ([facility]) Diastolic blood pressure 60 mm[Hg] 60 mm[Hg] eCW1 ([facility]) Body temperature 96.9 [degF] 96.9 [degF] MEDENT ([facility]) Body height 62.6 [in_i] 62.6 [in_i] MEDENT ([facility]) 5'2.60" Body weight 216.12 [lb_av] 216.12 [lb_av] MEDEN T ([facility]) Body mass index (BMI) [Ratio] 38.8 kg/m2 38.8 k g/m2 MEDENT ([facility]) Patient Treatment Plan of Care Planned Activity Planned Date Details Description Data Source (s) gabapentin 300 MG Oral Capsule 04/01/2021 12:00:00 AM EDT eCW1 ([facility]) gabapentin 300 MG Oral Capsule 04/01/2021 12:00:00 AM EDT eCW1 ([facility]) gabapentin 300 MG Oral Capsule 04/01/2021 12:00:00 AM EDT eCW1 ([facility]) gabapentin 300 MG Oral Capsule 04/01/2021 12:00:00 AM EDT eCW1 ([facility]) gabapentin 300 MG Oral Capsule 04/01/2021 12:00:00 AM EDT eCW1 ([facility]) gabapentin 300 MG Oral Capsule 04/01/2021 12:00:00 AM EDT eCW1 ([facility]) Metformin hydrochloride 500 MG Oral Tablet 10/30/2020 12:00:00 AM E [facility] meloxicam 15 MG Oral Tablet 10/13/2020 12:00:00 AM EST [facility] Loratadine 10 MG Oral Tablet 10/01/2020 12:00:00 AM EST [facility] Lisinopril 2.5 MG Oral Tablet 09/07/2020 12:00:00 AM EST [facility] 0.5 ML dulaglutide 1.5 MG/ML Auto-Injector [Trulicity] 09/01/2020 12:00:00 AM EST [facility] Cholecalciferol 2000 UNT Oral Capsule 08/10/2020 12:00:00 AM EST [facility] atorvastatin 20 MG Oral Tablet 08/10/2020 12:00:00 AM EST [facility]
[2021-08-18] MEDS ORDERED: propofoL 200 MG/20 ML VIAL As Ordered ONE (09:02)
[2021-08-18] MEDS ORDERED: dexameTHASONE 4 MG/ML 1ML VIAL (J1100 PER 1MG) As Ordered ONE (09:02)
[2021-08-18] MEDS ORDERED: LIDOCAINE 2% 100MG/5ML SDV (FOR ANES.) As Ordered ONE (09:02)
[2021-08-18] MEDS ORDERED: fentaNYL 250 MCG/5 ML INJECTION (J3010) As Ordered ONE (09:02)
[2021-08-18] MEDS ORDERED: KETOROLAC 60MG 2ML VIAL As Ordered ONE (09:02)
[2021-08-18] MEDS ORDERED: MIDAZOLAM INJ 2MG/2ML VIAL (J2250 PER 1MG) As Ordered ONE (09:02)
[2021-08-18] MEDS ORDERED: ONDANSETRON 4MG/2ML VIAL As Ordered ONE (09:02)
[2021-08-18] MEDS ORDERED: BUPIVACAINE/EPIN 0.25% 30 ML VIAL As Ordered ONE (10:00)
[2021-08-18] MEDS ORDERED: KETAMINE HCL 200 MG/20 ML VIAL As Ordered ONE (10:09)
[2021-08-18] MEDS ORDERED: GLYCOPYRROLATE INJ 0.2 MG/ML 2 ML VIAL As Ordered ONE (10:10)
[2021-08-18] MEDS ORDERED: ACETAMINOPHEN 1000MG 100ML IV BTL (OFIRMEV) (J0131 PER 10MG) As Ordered ONE (10:34)
--- NOTE | 2021-08-18 11:05 | ROOPDOC ---
[facility] Report Of Operation Report of Operation DATE OF PROCEDURE: 08/18/21 PREPROCEDURE DIAGNOSES: Right carpal tunnel syndrome. POSTPROCEDURE DIAGNOSES: Same. PROCEDURE PERFORMED: Right open carpal tunnel release. SURGEON: Dr. Shivam Delacruz MD CONCRETE P[employer]ING SUPERVISOR: None ANESTHESIA: Local/MAC Dr ALEX. ESTIMATED BLOOD LOSS: Approximately 10 mL. COMPLICATIONS: None. REMARKS: None. FINDINGS: Carpal tunnel syndrome SPECIMENS REMOVED: None PROCEDURE NOTE: This 31-year-old female had signs and symptoms as well as nerve conduction evidence of right side carpal tunnel syndrome. We discussed the pros and cons risks and benefits of going ahead with surgery. She wished to proceed. She had no further questions. I marked the right upper extremity.. DESCRIPTION OF PROCEDURE: Patient was brought to the operating theater. They were placed supine on the operating room table. Hand table was used. Limb was prepped and draped in the usual sterile fashion. I used chlorhexidine-based prep solution allowing over 3 minutes drying time prior to draping. 2 g of IV Ancef was given prior to starting the case. Local/MAC anesthesia was used. Preoperative timeout was performed confirming the site the patient and the surgery. I began by infiltrating 7 mL of 0.25 percent Marcaine with epinephrine in and around the proposed incision site. This was on the palmar surface just distal to the wrist crease longitudinally in line with the fourth digit. The incision length was approximately 2 cm. I allowed the local anesthetic time to work. I carried the dissection down through skin and subcutaneous tissue to meticulous hemostasis. I incised the palmar fascia in line with the skin incision. I incised the transverse carpal ligament in line with the skin incision fully proximally and distally. Nerve appeared in continuity throughout the case. I thoroughly irrigated the wound with normal saline. I closed the subcutaneous tissues with 2-0 Vicryl sutures and the skin with 3-0 Ethilon in a horizontal mattress fashion. Wound cleaned with wet and dry dressing followed by application of non stick dressing, 4 x 8 gauze and overwrapped with Ifeanyi type dressing. Patient was woken up from their sedation and transferred off the operating room table and taken to postanesthetic care unit in stable condition. All sponge, needle, instrument counts were correct. No complications. The patient is to start immediate hand wrist and elbow exercises but avoid heavy lifting and gripping-type activities for the first 6 weeks. They will be discharged home according to day surgery criteria. They can change the dressing postoperative day 1 and avoid showering over top or getting it wet for the first 14 days. Follow-up in the office in 2 weeks' time. Postoperative wound instructions were given. It was recommended to keep the wound clean and dry. Dressing changes as needed. It was reinforced with the patient that they should call us or be seen immediately for redness, drainage, or fever.. SHIVAM DELACRUZ MD Aug 18, 2021 11:05
[2021-08-18 12:00] VITALS: BP 150/77
== END 2021-08-18 12:08 | disposition home or self-care (01) ==
LOC: M SDC 08:25
PROVIDERS: ATTEND Orthopaedic Surgery Sports Medicine
DX: G56.01 Carpal tunnel syndrome, right upper limb (principal); I10 Essential (primary) hypertension; E11.9 Type 2 diabetes mellitus without complications; E78.5 Hyperlipidemia, unspecified; K21.9 Gastro-esophageal reflux disease without esophagitis; F41.9 Anxiety disorder, unspecified; F32.9 Major depressive disorder, single episode, unspecified; R51.9 Headache, unspecified; G47.33 Obstructive sleep apnea (adult) (pediatric); J45.909 Unspecified asthma, uncomplicated; Z79.84 Long term (current) use of oral hypoglycemic drugs; Z79.899 Other long term (current) drug therapy; J30.2 Other seasonal allergic rhinitis; Z88.5 Allergy status to narcotic agent; Z88.1 Allergy status to other antibiotic agents; Z88.8 Allergy status to other drugs, medicaments and biological substances
CPT/HCPCS: 64721; 81025; J0131; J0690; J1100; J1885; J2250; J2405; J3010

== ENCOUNTER → 2021-10-28 | Outpatient (CLI) | payer OTHER ==
[~2021-10-28] MED LIST changes: -CEFD1CAP8 PO; +CEFD300C41 PO; -LIDOCAINE 1% MDV 20ML VIAL SQ PRN; -LR 1,000 ML IV ONE; -ceFAZolin SOD 2 GM in IV 1 EA IV ONE
== END ==
LOC: M SOG 08:02
PROVIDERS: ATTEND Orthopaedic Surgery Hand Surgery
DX: M25.532 Pain in left wrist (principal)

== ENCOUNTER → 2021-11-15 | Outpatient (CLI) | payer OTHER ==
[~2021-11-15] MED LIST changes: +FLON1SPR; +LORA-243 PO; +VITA100093 PO; -ZOLO100T; +ZOLO100T PO
[2021-11-15 17:30] LABS: BASO % 0.3 % (0.0-1.0); EOS # 0.1 10^3/uL (0.0-0.5); EOS % 0.9 % (0.0-3.0); HEMATOCRIT 42.9 % (36.0-47.0); HEMOGLOBIN 14.4 g/dl (12.0-15.5); LYMPH # 3.5 10^3/uL (1.5-5.0); LYMPH % 34.7 % (24.0-44.0); MEAN CORPUSCULAR HEMOGLOBIN 30.4 pg (27.0-33.0); MEAN CORPUSCULAR HGB CONC 33.6 g/dl (32.0-36.5); MEAN CORPUSCULAR VOLUME 90.7 fl (80.0-96.0); MONO # 0.5 10^3/uL (0.0-0.8); MONO % 5.3 % (2.0-8.0); NEUTROPHILS # 5.9 10^3/uL (1.5-8.5); NEUTROPHILS % 58.4 % (36.0-66.0); PLATELET COUNT, AUTOMATED 259 10^3/uL (150-450); RED BLOOD COUNT 4.73 10^6/uL (4.00-5.40); WHITE BLOOD COUNT 10.2 10^3/uL (4.0-10.0)
[2021-11-15 17:50] LABS: HEMOGLOBIN A1c 5.9 %
[2021-11-15 17:53] LABS: ALBUMIN 3.9 GM/DL (3.2-5.2); ALT/SGPT 33 U/L (12-78); BILIRUBIN,TOTAL < 0.1 MG/DL (0.2-1.0); BLOOD UREA NITROGEN 6 MG/DL (7-18); CALCIUM LEVEL 9.3 MG/DL (8.5-10.1); CARBON DIOXIDE LEVEL 30 MEQ/L (21-32); CHLORIDE LEVEL 105 MEQ/L (98-107); CREATININE FOR GFR 0.64 MG/DL (0.55-1.30); GLOMERULAR FILTRATION RATE > 60.0 (>60); GLUCOSE, FASTING 76 MG/DL (70-100); NT-PRO BNP 95 PG/ML (<125); POTASSIUM SERUM 4.1 MEQ/L (3.5-5.1); SODIUM LEVEL 138 MEQ/L (136-145); TOTAL PROTEIN 7.3 GM/DL (6.4-8.2)
[2021-11-15 18:46] LABS: INR 0.97; PROTHROMBIN TIME 13.3 SECONDS (12.7-14.5)
== END ==
LOC: M PLALAB 15:33
PROVIDERS: ATTEND Family Medicine
DX: I10 Essential (primary) hypertension (principal)

== ENCOUNTER → 2021-11-19 | Outpatient (CLI) | payer OTHER ==
[2021-11-19 15:27] LABS: CHOLESTEROL RISK RATIO 5.113 (<5)
== END ==
LOC: M PLALAB 11:28
PROVIDERS: ATTEND Nurse Practitioner Family
DX: E78.5 Hyperlipidemia, unspecified (principal)

== ENCOUNTER → 2021-11-19 | Outpatient (CLI) | payer OTHER | LOC: M LABSMTC 10:59 | PROVIDERS: ATTEND Orthopaedic Surgery Hand Surgery | DX: Z01.812 Encounter for preprocedural laboratory examination (principal); Z20.822 Contact with and (suspected) exposure to COVID-19 ==

== ENCOUNTER 2021-11-24 05:58 | Day surgery (SDC) | payer OTHER ==
[~2021-11-24] VITALS: Ht 154.9 cm; Wt 98.0 kg
[2021-11-24] MEDS ORDERED: LR 1,000 ML IV ONE (06:00)
[2021-11-24] MEDS ORDERED: BUPIVACAINE HCL 0.25% 30ML VIAL As Ordered ONE (07:13)
[2021-11-24] MEDS ORDERED: KETAMINE HCL 200 MG/20 ML VIAL As Ordered ONE (07:28)
[2021-11-24] MEDS ORDERED: GLYCOPYRROLATE INJ 0.2 MG/ML 2 ML VIAL As Ordered ONE (07:29)
[2021-11-24] MEDS ORDERED: ACETAMINOPHEN 1000MG 100ML IV BTL (OFIRMEV) (J0131 PER 10MG) As Ordered ONE (07:37)
[2021-11-24] MEDS ORDERED: propofoL 200 MG/20 ML VIAL As Ordered ONE (07:54)
[2021-11-24] MEDS ORDERED: KETOROLAC 60MG 2ML VIAL As Ordered ONE (07:54)
[2021-11-24] MEDS ORDERED: ONDANSETRON 4MG/2ML VIAL As Ordered ONE (07:54)
[2021-11-24] MEDS ORDERED: dexameTHASONE 4 MG/ML 1ML VIAL (J1100 PER 1MG) As Ordered ONE (07:54)
[2021-11-24] MEDS ORDERED: LIDOCAINE 2% 100MG/5ML SDV (FOR ANES.) As Ordered ONE (07:54)
[2021-11-24] MEDS ORDERED: fentaNYL 100 MCG/2 ML INJECTION As Ordered ONE (07:54)
[2021-11-24] MEDS ORDERED: MIDAZOLAM INJ 2MG/2ML VIAL (J2250 PER 1MG) As Ordered ONE (07:54)
[2021-11-24] MEDS ORDERED: TRAM50TA2 PO (08:06)
[2021-11-24 08:30] VITALS: BP 140/90
== END 2021-11-24 09:05 | disposition home or self-care (01) ==
LOC: M SDC 05:58
PROVIDERS: ATTEND Orthopaedic Surgery Hand Surgery
DX: G56.02 Carpal tunnel syndrome, left upper limb (principal); I10 Essential (primary) hypertension; E11.9 Type 2 diabetes mellitus without complications; E78.5 Hyperlipidemia, unspecified; F31.9 Bipolar disorder, unspecified; F32.9 Major depressive disorder, single episode, unspecified; F41.9 Anxiety disorder, unspecified; J45.909 Unspecified asthma, uncomplicated; G47.33 Obstructive sleep apnea (adult) (pediatric); Z79.899 Other long term (current) drug therapy; Z88.5 Allergy status to narcotic agent; Z88.1 Allergy status to other antibiotic agents; Z88.8 Allergy status to other drugs, medicaments and biological substances; F17.290 Nicotine dependence, other tobacco product, uncomplicated
CPT/HCPCS: 29848; 81025; J0131; J1100; J1885; J2250; J2405; J3010

== ENCOUNTER → 2022-09-08 | Outpatient (REF) | payer OTHER ==
[~2022-09-08] MED LIST changes: +TRAM50TA2 PO
== END ==
LOC: M SFHCPLAZ 13:03
PROVIDERS: ATTEND Family Medicine
DX: J06.9 Acute upper respiratory infection, unspecified (principal)

== ENCOUNTER → 2023-01-23 | Outpatient (REF) | payer OTHER | LOC: M SFHCWAGY 10:23 | PROVIDERS: ATTEND Nurse Practitioner Family | DX: Z12.4 Encounter for screening for malignant neoplasm of cervix (principal) ==

== ENCOUNTER → 2023-05-09 | Outpatient (CLI) | payer OTHER ==
[2023-05-09 11:00] LABS: BASO % 0.4 % (0.0-1.0); EOS # 0.1 10^3/uL (0.0-0.5); EOS % 0.9 % (0.0-3.0); HEMOGLOBIN 14.6 g/dl (12.0-15.5); LYMPH # 2.1 10^3/uL (1.5-5.0); LYMPH % 26.7 % (24.0-44.0); MEAN CORPUSCULAR HEMOGLOBIN 30.1 pg (27.0-33.0); MEAN CORPUSCULAR HGB CONC 32.4 g/dl (32.0-36.5); MEAN CORPUSCULAR VOLUME 92.8 fl (80.0-96.0); MONO # 0.5 10^3/uL (0.0-0.8); MONO % 6.1 % (2.0-8.0); NEUTROPHILS # 5.3 10^3/uL (1.5-8.5); NEUTROPHILS % 65.7 % (36.0-66.0); PLATELET COUNT, AUTOMATED 235 10^3/uL (150-450); RED BLOOD COUNT 4.85 10^6/uL (4.00-5.40)
[2023-05-09 11:02] LABS: ALKALINE PHOSPHATASE 66 U/L (46-116); ALT/SGPT 22 U/L (7.0-40); AST/SGOT 16 U/L (<34); BILIRUBIN,TOTAL 0.3 MG/DL (0.3-1.2); BLOOD UREA NITROGEN 9 MG/DL (9-23); CARBON DIOXIDE LEVEL 25 MMOL/L (20-31); CHLORIDE LEVEL 108 MMOL/L (98-107); CHOLESTEROL LEVEL 156 MG/DL (<200); CHOLESTEROL RISK RATIO 4.25 (<5); CREATININE FOR GFR 0.63 MG/DL (0.55-1.30); GLOMERULAR FILTRATION RATE > 60.0 (>60); GLUCOSE, FASTING 111 MG/DL (60-100); HDL CHOLESTEROL 36.7 MG/DL (>40); LDL CHOLESTEROL 82.7 MG/DL (<100); NON-HDL-C 119.3 MG/DL; POTASSIUM SERUM 4.4 MMOL/L (3.5-5.1); SODIUM LEVEL 140 MMOL/L (136-145); TOTAL PROTEIN 6.8 G/DL (5.7-8.2); TRIGLYCERIDES LEVEL 183 MG/DL (<150)
[2023-05-09 11:03] LABS: THYROID STIMULATING HORMONE 1.211 uIU/ML (0.55-4.78); TOTAL 25(OH) VITAMIN D 25.6 NG/ML (20.0-100.0)
[2023-05-09 11:31] LABS: HEMOGLOBIN A1c 5.6 % (4.0-6.0)
== END ==
LOC: M PLALAB 07:45
PROVIDERS: ATTEND Nurse Practitioner Family
DX: E11.9 Type 2 diabetes mellitus without complications (principal); E78.2 Mixed hyperlipidemia; E55.9 Vitamin D deficiency, unspecified

== ENCOUNTER → 2023-06-28 | Outpatient (CLI) | payer OTHER ==
[~2023-06-28] MED LIST changes: -CEFD300C41 PO; +CEFD300C42 PO
== END ==
LOC: M PLALAB 09:13
PROVIDERS: ATTEND Nurse Practitioner Family
DX: Z32.01 Encounter for pregnancy test, result positive (principal)

== ENCOUNTER → 2023-07-12 | Outpatient (CLI) | payer MEDICAID | LOC: M PLALAB 07:40 | PROVIDERS: ATTEND Nurse Practitioner Family | DX: Z34.91 Encounter for supervision of normal pregnancy, unspecified, first trimester (principal) ==

== ENCOUNTER 2023-12-15 12:30 | Outpatient (CLI) | payer MEDICAID, OTHER ==
[~2023-12-15] VITALS: Ht 154.9 cm; Wt 104.7 kg
[~2023-12-15 12:30] MED LIST changes: +CEFD1CAP9 PO; -CEFD300C42 PO
[2023-12-15] MEDS ORDERED: PRENTAB9 PO (12:41)
[2023-12-15] MEDS ORDERED: HUMU1INJ2 SC (12:50)
[2023-12-15] MEDS ORDERED: HOME MED LIST COMPLETE! XX SCH (12:50)
[2023-12-15] MEDS ORDERED: LABE100T6 PO (12:50)
[2023-12-15] MEDS ORDERED: INSU100I16 SC (12:50)
[2023-12-15] MEDS ORDERED: LEVO50TA5 PO (12:50)
[2023-12-15] MEDS ORDERED: ASPI81CH48 PO (12:50)
[2023-12-15 12:56] VITALS: BP 133/68
[2023-12-15 13:11] VITALS: BP 131/75
[2023-12-15 13:26] VITALS: BP 131/76
== END 2023-12-15 15:25 | disposition home or self-care (01) ==
LOC: M LDO 12:30
PROVIDERS: ATTEND Advanced Practice Midwife
DX: O24.113 Pre-existing type 2 diabetes mellitus, in pregnancy, third trimester (principal); O10.013 Pre-existing essential hypertension complicating pregnancy, third trimester; O99.513 Diseases of the respiratory system complicating pregnancy, third trimester; J45.909 Unspecified asthma, uncomplicated; E03.9 Hypothyroidism, unspecified; E55.9 Vitamin D deficiency, unspecified; Z3A.28 28 weeks gestation of pregnancy; Z86.16 Personal history of COVID-19; Z79.4 Long term (current) use of insulin; O99.283 Endocrine, nutritional and metabolic diseases complicating pregnancy, third trimester
CPT/HCPCS: 59025; G0463

== ENCOUNTER 2024-01-27 21:14 | Outpatient (CLI) | payer MEDICAID ==
[~2024-01-27] VITALS: Ht 154.9 cm; Wt 115.3 kg
[~2024-01-27 21:14] MED LIST changes: +ASPI81CH48 PO; +HUMU1INJ2 SC; +INSU100I16 SC; +LABE100T6 PO; +LEVO50TA5 PO; +PRENTAB9 PO
[2024-01-27 21:36] VITALS: BP 140/85
[2024-01-27 21:52] VITALS: BP 145/69
[2024-01-27] MEDS ORDERED: NOVOINJ SC ×2 (21:58→22:03)
[2024-01-27] MEDS ORDERED: NOVOINJ13 SC (22:01)
[2024-01-27] MEDS ORDERED: HOME MED LIST COMPLETE! XX SCH (22:05)
[2024-01-27 22:12] VITALS: BP 166/77
[2024-01-27 22:16] VITALS: BP 180/86
[2024-01-27 22:37] VITALS: BP 146/77
[2024-01-27 22:55] LABS: HEMATOCRIT 34.7 % (36.0-47.0); HEMOGLOBIN 11.6 g/dl (12.0-15.5); MEAN CORPUSCULAR HEMOGLOBIN 29.9 pg (27.0-33.0); MEAN CORPUSCULAR HGB CONC 33.4 g/dl (32.0-36.5); MEAN CORPUSCULAR VOLUME 89.4 fl (80.0-96.0); PLATELET COUNT, AUTOMATED 199 10^3/uL (150-450); RED BLOOD COUNT 3.88 10^6/uL (4.00-5.40)
[2024-01-27 22:59] LABS: TOTAL PROTEIN,RANDOM URINE 30.9 MG/DL (0.0-14.0)
[2024-01-27 23:04] LABS: CREATININE,RANDOM URINE 151.7 MG/DL
[2024-01-27 23:17] LABS: URIC ACID 5.6 MG/DL (3.1-7.8)
[2024-01-27 23:19] LABS: LDH LACTATE DEHYDROGENASE 149 U/L (120-246)
[2024-01-27 23:20] LABS: ALT/SGPT 19 U/L (7.0-40); AST/SGOT 23 U/L (<34); BILIRUBIN,TOTAL 0.2 MG/DL (0.3-1.2); CREATININE FOR GFR 0.64 MG/DL (0.55-1.30); GLOMERULAR FILTRATION RATE > 60.0 (>60)
== END 2024-01-27 23:41 | disposition home or self-care (01) ==
LOC: M LDO 21:14
PROVIDERS: ATTEND Specialist
DX: O10.013 Pre-existing essential hypertension complicating pregnancy, third trimester (principal); O24.113 Pre-existing type 2 diabetes mellitus, in pregnancy, third trimester; Z79.4 Long term (current) use of insulin; Z3A.34 34 weeks gestation of pregnancy
CPT/HCPCS: 36415; 59025; 82247; 82570; 83615; 84156; 84450; 84460; 84550; 85027; G0463

== ENCOUNTER 2024-02-11 20:53 | Outpatient (CLI) | payer MEDICAID, OTHER ==
[~2024-02-11] VITALS: Ht 154.9 cm; Wt 118.6 kg
[~2024-02-11 20:53] MED LIST changes: +NOVOINJ SC; +NOVOINJ13 SC
[2024-02-11 21:28] VITALS: BP 124/59
[2024-02-11 23:09] VITALS: BP 144/78
== END 2024-02-12 00:07 | disposition home or self-care (01) ==
LOC: M LDO 20:53
PROVIDERS: ATTEND Obstetrics & Gynecology
DX: O26.893 Other specified pregnancy related conditions, third trimester (principal); O10.013 Pre-existing essential hypertension complicating pregnancy, third trimester; O24.113 Pre-existing type 2 diabetes mellitus, in pregnancy, third trimester; R25.2 Cramp and spasm; R10.2 Pelvic and perineal pain; Z79.4 Long term (current) use of insulin; Z3A.36 36 weeks gestation of pregnancy
CPT/HCPCS: 59025; 76815; 76819; 76820; 81001; G0463

== ENCOUNTER → 2024-03-12 | Outpatient (CLI) | payer OTHER, MEDICAID ==
[2024-03-12 18:17] LABS: BASO % 0.6 % (0.0-1.0); EOS # 0.1 10^3/uL (0.0-0.5); EOS % 1.7 % (0.0-3.0); HEMATOCRIT 38.5 % (36.0-47.0); HEMOGLOBIN 11.8 g/dl (12.0-15.5); LYMPH % 30.9 % (24.0-44.0); MEAN CORPUSCULAR HEMOGLOBIN 28.2 pg (27.0-33.0); MEAN CORPUSCULAR HGB CONC 30.6 g/dl (32.0-36.5); MEAN CORPUSCULAR VOLUME 92.1 fl (80.0-96.0); MONO # 0.4 10^3/uL (0.0-0.8); MONO % 6.6 % (2.0-8.0); NEUTROPHILS # 3.8 10^3/uL (1.5-8.5); NEUTROPHILS % 59.9 % (36.0-66.0); PLATELET COUNT, AUTOMATED 247 10^3/uL (150-450); RED BLOOD COUNT 4.18 10^6/uL (4.00-5.40); WHITE BLOOD COUNT 6.3 10^3/uL (4.0-10.0)
[2024-03-12 18:46] LABS: ALBUMIN 3.6 G/DL (3.2-5.2); ALKALINE PHOSPHATASE 96 U/L (46-116); ALT/SGPT 27 U/L (7.0-40); AST/SGOT 18 U/L (<34); BILIRUBIN,TOTAL 0.2 MG/DL (0.3-1.2); BLOOD UREA NITROGEN 10 MG/DL (9-23); CALCIUM LEVEL 9.5 MG/DL (8.5-10.1); CARBON DIOXIDE LEVEL 30 MMOL/L (20-31); CHLORIDE LEVEL 104 MMOL/L (98-107); CHOLESTEROL LEVEL 295 MG/DL (<200); CHOLESTEROL RISK RATIO 6.68 (<5); GLOMERULAR FILTRATION RATE > 60.0 (>60); GLUCOSE, FASTING 100 MG/DL (60-100); HDL CHOLESTEROL 44.1 MG/DL (>40); NON-HDL-C 250.9 MG/DL; POTASSIUM SERUM 4.4 MMOL/L (3.5-5.1); SODIUM LEVEL 138 MMOL/L (136-145); TOTAL PROTEIN 6.5 G/DL (5.7-8.2); TRIGLYCERIDES LEVEL 450 MG/DL (<150)
[2024-03-12 18:47] LABS: FREE T4 0.94 NG/DL (0.89-1.76); THYROID STIMULATING HORMONE 1.258 uIU/ML (0.55-4.78)
== END ==
LOC: M PLALAB 14:37
PROVIDERS: ATTEND Nurse Practitioner Family
DX: E55.9 Vitamin D deficiency, unspecified (principal); I10 Essential (primary) hypertension; E78.2 Mixed hyperlipidemia

== ENCOUNTER → 2024-03-19 | Outpatient (CLI) | payer OTHER, MEDICAID | LOC: M SOG 08:01 | PROVIDERS: ATTEND Physician Assistant | DX: Z53.9 Procedure and treatment not carried out, unspecified reason (principal) ==

== ENCOUNTER → 2024-04-01 | Outpatient (CLI) | payer OTHER | LOC: M PLAIMG 14:00 | PROVIDERS: ATTEND Physician Assistant Surgical | DX: M54.50 Low back pain, unspecified (principal); M47.817 Spondylosis without myelopathy or radiculopathy, lumbosacral region ==

== ENCOUNTER → 2024-06-07 | Outpatient (CLI) | payer OTHER ==
[2024-06-07 18:30] LABS: BASO % 0.5 % (0.0-1.0); EOS # 0.1 10^3/uL (0.0-0.5); EOS % 1.4 % (0.0-3.0); HEMATOCRIT 39.3 % (36.0-47.0); HEMOGLOBIN 12.6 g/dl (12.0-15.5); LYMPH # 2.2 10^3/uL (1.5-5.0); LYMPH % 34.5 % (24.0-44.0); MEAN CORPUSCULAR HEMOGLOBIN 26.5 pg (27.0-33.0); MEAN CORPUSCULAR HGB CONC 32.1 g/dl (32.0-36.5); MEAN CORPUSCULAR VOLUME 82.7 fl (80.0-96.0); MONO # 0.3 10^3/uL (0.0-0.8); MONO % 5.2 % (2.0-8.0); NEUTROPHILS # 3.8 10^3/uL (1.5-8.5); NEUTROPHILS % 58.1 % (36.0-66.0); PLATELET COUNT, AUTOMATED 203 10^3/uL (150-450); RED BLOOD COUNT 4.75 10^6/uL (4.00-5.40); WHITE BLOOD COUNT 6.5 10^3/uL (4.0-10.0)
[2024-06-07 18:36] LABS: ERYTHROCYTE SEDIMENTATION RATE 16 mm/hr (0-20)
[2024-06-07 18:37] LABS: URIC ACID 6.4 MG/DL (3.1-7.8)
[2024-06-07 18:38] LABS: C REACTIVE PROTEIN QUANTITATIV 0.8 MG/DL (<1.0)
[2024-06-07 18:41] LABS: RHEUMATOID FACTOR QUANT 8.1 IU/ML (<14)
== END ==
LOC: M PLALAB 16:02
PROVIDERS: ATTEND Physician Assistant Surgical
DX: M65.4 Radial styloid tenosynovitis [de Quervain] (principal)

== ENCOUNTER → 2024-08-06 | Outpatient (CLI) | payer OTHER | LOC: M PLAIMG 07-19 14:08 | PROVIDERS: ATTEND Physician Assistant Surgical | DX: M54.50 Low back pain, unspecified (principal); M65.4 Radial styloid tenosynovitis [de Quervain]; M96.0 Pseudarthrosis after fusion or arthrodesis; M46.1 Sacroiliitis, not elsewhere classified; R93.6 Abnormal findings on diagnostic imaging of limbs ==

== ENCOUNTER → 2024-08-29 | Outpatient (CLI) | payer OTHER ==
[~2024-08-29] MED LIST changes: +LANTINJ4 SC; +METF10004
[2024-08-29 13:43] LABS: BASO % 0.3 % (0.0-1.0); EOS # 0.1 10^3/uL (0.0-0.5); EOS % 0.9 % (0.0-3.0); HEMATOCRIT 40.7 % (36.0-47.0); HEMOGLOBIN 13.4 g/dl (12.0-15.5); LYMPH # 1.7 10^3/uL (1.5-5.0); LYMPH % 25.9 % (24.0-44.0); MEAN CORPUSCULAR HEMOGLOBIN 27.7 pg (27.0-33.0); MEAN CORPUSCULAR HGB CONC 32.9 g/dl (32.0-36.5); MEAN CORPUSCULAR VOLUME 84.1 fl (80.0-96.0); MONO # 0.4 10^3/uL (0.0-0.8); MONO % 6.4 % (2.0-8.0); NEUTROPHILS # 4.2 10^3/uL (1.5-8.5); NEUTROPHILS % 66.3 % (36.0-66.0); PLATELET COUNT, AUTOMATED 175 10^3/uL (150-450); RED BLOOD COUNT 4.84 10^6/uL (4.00-5.40); WHITE BLOOD COUNT 6.4 10^3/uL (4.0-10.0)
[2024-08-29 14:14] LABS: THYROID STIMULATING HORMONE 1.793 uIU/ML (0.55-4.78)
[2024-08-29 14:15] LABS: FREE T4 0.91 NG/DL (0.89-1.76)
[2024-08-29 14:18] LABS: HEMOGLOBIN A1c 10.7 % (4.0-6.0)
[2024-08-29 14:19] LABS: CREATININE, URINE 92.5 MG/DL
[2024-08-29 14:25] LABS: MAU/CREAT RATIO 163.2 MCG/MG (0.0-30.0)
[2024-08-29 14:42] LABS: ALBUMIN 3.6 G/DL (3.2-5.2); ALKALINE PHOSPHATASE 103 U/L (35-104); ALT/SGPT 25 U/L (7.0-40); AST/SGOT 18 U/L (<34); BILIRUBIN,TOTAL 0.3 MG/DL (0.3-1.2); BLOOD UREA NITROGEN 10 MG/DL (9-23); CALCIUM LEVEL 9.3 MG/DL (8.5-10.1); CARBON DIOXIDE LEVEL 25 MMOL/L (20-31); CHLORIDE LEVEL 99 MMOL/L (98-107); CHOLESTEROL LEVEL 364 MG/DL (<200); CHOLESTEROL RISK RATIO 10.22 (<5); CREATININE FOR GFR 0.53 MG/DL (0.55-1.30); GLOMERULAR FILTRATION RATE > 60.0 (>60); GLUCOSE, FASTING 367 MG/DL (60-100); HDL CHOLESTEROL 35.6 MG/DL (>40); NON-HDL-C 328.4 MG/DL; SODIUM LEVEL 133 MMOL/L (136-145); TOTAL PROTEIN 7.1 G/DL (5.7-8.2); TRIGLYCERIDES LEVEL 1588 MG/DL (<150)
== END ==
LOC: M PLALAB 11:03
PROVIDERS: ATTEND Nurse Practitioner Family
DX: E11.9 Type 2 diabetes mellitus without complications (principal); E78.2 Mixed hyperlipidemia; E03.9 Hypothyroidism, unspecified

== ENCOUNTER → 2024-09-02 | Outpatient (CLI) | payer OTHER | LOC: M RAD 07:33 | PROVIDERS: ATTEND Nurse Practitioner Family | DX: R10.9 Unspecified abdominal pain (principal); R16.0 Hepatomegaly, not elsewhere classified; K76.0 Fatty (change of) liver, not elsewhere classified; K43.9 Ventral hernia without obstruction or gangrene ==

== ENCOUNTER 2024-09-03 16:04 | Emergency (ER) | payer OTHER ==
[~2024-09-03] VITALS: Ht 154.9 cm; Wt 103.1 kg
[~2024-09-03 16:04] MED LIST changes: -LANTINJ4 SC; -METF10004
[2024-09-03 16:06] VITALS: TEMP 96.7
[2024-09-03] MEDS: NS (Normal Saline) 0.9% 1,000 ML IV ONE (16:45)
[2024-09-03] MEDS ORDERED: METF10004 (16:52)
[2024-09-03] MEDS ORDERED: LANTINJ4 SC (16:52)
[2024-09-03 17:43] LABS: VENOUS BASE EXCESS -0.8 (-2.0-2.0); VENOUS HCO3 24.1 MMOL/L (23.0-27.0); VENOUS O2 SATURATION 96.2 % (60.0-80.0); VENOUS PARTIAL PRESSURE CO2 40.9 mmHg (38.0-50.0); VENOUS PARTIAL PRESSURE O2 86.9 mmHg (30.0-50.0); VENOUS PH 7.389 UNITS (7.330-7.430); VENOUS STANDARD HCO3 23.8 MMOL/L; VENOUS TOTAL CO2 25.4 MMOL/L (24.0-28.0)
[2024-09-03 17:48] LABS: BASO % 0.3 % (0.0-1.0); EOS # 0.1 10^3/uL (0.0-0.5); EOS % 0.8 % (0.0-3.0); HEMATOCRIT 38.8 % (36.0-47.0); HEMOGLOBIN 12.9 g/dl (12.0-15.5); LYMPH # 2.1 10^3/uL (1.5-5.0); LYMPH % 32.6 % (24.0-44.0); MEAN CORPUSCULAR HEMOGLOBIN 27.8 pg (27.0-33.0); MEAN CORPUSCULAR HGB CONC 33.2 g/dl (32.0-36.5); MEAN CORPUSCULAR VOLUME 83.6 fl (80.0-96.0); MONO # 0.4 10^3/uL (0.0-0.8); MONO % 5.5 % (2.0-8.0); NEUTROPHILS # 3.9 10^3/uL (1.5-8.5); NEUTROPHILS % 60.5 % (36.0-66.0); PLATELET COUNT, AUTOMATED 192 10^3/uL (150-450); RED BLOOD COUNT 4.64 10^6/uL (4.00-5.40); WHITE BLOOD COUNT 6.4 10^3/uL (4.0-10.0)
[2024-09-03 17:50] LABS: KETONE, URINE AUTO RFX TRACE mg/dL (NEGATIVE); NITRITE, URINE AUTO RFX NEGATIVE (NEGATIVE); RBC, URINE AUTO RFX TNTC /HPF (0-3); SQUAM EPITHELIAL CELL UR AURFX 1 /HPF (0-6)
[2024-09-03 17:52] LABS: LEUKOCYTE ESTERASE UR AUTO RFX TRACE (NEGATIVE); WBC, URINE AUTO RFX 80 /HPF (0-3)
[2024-09-03 18:10] LABS: LIPASE 32 U/L (12-53)
[2024-09-03 18:11] LABS: CK-MB VALUE MASS < 1.0 NG/ML (<3.6)
[2024-09-03 18:12] LABS: OSMOLALITY SERUM 303 MOSM/KG (275-295)
[2024-09-03 18:13] LABS: ALBUMIN 3.7 G/DL (3.2-5.2); ALKALINE PHOSPHATASE 100 U/L (35-104); ALT/SGPT 28 U/L (7.0-40); AST/SGOT 20 U/L (<34); BILIRUBIN,DIRECT < 0.1 MG/DL (<0.4); BILIRUBIN,TOTAL 0.2 MG/DL (0.3-1.2); CPK CREATINE PHOSPHOKINASE 86 U/L (34-145); MB/CK RELATIVE INDEX 1.16 (< OR =4); TOTAL PROTEIN 6.7 G/DL (5.7-8.2)
[2024-09-03 18:14] LABS: ACETONE/KETONE 0.16 MMOL/L (0.02-0.27)
[2024-09-03 18:17] LABS: HEMOGLOBIN A1c 10.8 % (4.0-6.0)
[2024-09-03 19:01] VITALS: BP 133/79; O2SAT 96
[2024-10-23] MEDS ORDERED: METF10004 PO (10:13)
[2024-10-23] MEDS ORDERED: LAMO25TA4 PO (10:13)
[2024-10-23] MEDS ORDERED: PANT40TA29 PO (10:13)
[2024-10-23] MEDS ORDERED: LANTINJ4 SC (10:13)
[2024-10-23] MEDS ORDERED: SEMA0.257 SQ (10:13)
[2024-10-23] MEDS ORDERED: TELM1TAB33 PO (10:13)
[2024-10-23] MEDS ORDERED: STEG15TA PO (10:13)
== END 2024-09-03 19:14 | disposition home or self-care (01) ==
LOC: M ED 16:04
DX: E10.65 Type 1 diabetes mellitus with hyperglycemia (principal); J30.89 Other allergic rhinitis; Z79.4 Long term (current) use of insulin; Z79.82 Long term (current) use of aspirin; Z79.899 Other long term (current) drug therapy; Z88.1 Allergy status to other antibiotic agents; Z88.5 Allergy status to narcotic agent

== ENCOUNTER 2024-09-29 22:54 | Emergency (ER) | payer MEDICAID, OTHER ==
[~2024-09-29] VITALS: Ht 154.9 cm; Wt 101.9 kg
[~2024-09-29 22:54] MED LIST changes: +LANTINJ4 SC; +METF10004
[2024-09-29 22:58] VITALS: BP 134/64; TEMP 97; O2SAT 97
[2024-09-30 00:40] LABS: BASO % 0.3 % (0.0-1.0); EOS # 0.1 10^3/uL (0.0-0.5); EOS % 1.1 % (0.0-3.0); HEMATOCRIT 41.8 % (36.0-47.0); HEMOGLOBIN 13.5 g/dl (12.0-15.5); LYMPH # 2.9 10^3/uL (1.5-5.0); LYMPH % 31.8 % (24.0-44.0); MEAN CORPUSCULAR HEMOGLOBIN 27.9 pg (27.0-33.0); MEAN CORPUSCULAR HGB CONC 32.3 g/dl (32.0-36.5); MEAN CORPUSCULAR VOLUME 86.4 fl (80.0-96.0); MONO # 0.5 10^3/uL (0.0-0.8); MONO % 5.7 % (2.0-8.0); NEUTROPHILS # 5.6 10^3/uL (1.5-8.5); NEUTROPHILS % 60.8 % (36.0-66.0); PLATELET COUNT, AUTOMATED 226 10^3/uL (150-450); RED BLOOD COUNT 4.84 10^6/uL (4.00-5.40); WHITE BLOOD COUNT 9.2 10^3/uL (4.0-10.0)
[2024-09-30 00:47] LABS: LIPASE 36 U/L (12-53)
[2024-09-30 00:48] LABS: AMYLASE 42 U/L (30-118)
[2024-09-30 00:49] LABS: ALKALINE PHOSPHATASE 81 U/L (35-104); ALT/SGPT 26 U/L (7.0-40); AST/SGOT 21 U/L (<34); BILIRUBIN,DIRECT < 0.1 MG/DL (<0.4); BILIRUBIN,TOTAL 0.3 MG/DL (0.3-1.2); BLOOD UREA NITROGEN 11 MG/DL (9-23); CALCIUM LEVEL 9.4 MG/DL (8.5-10.1); CARBON DIOXIDE LEVEL 25 MMOL/L (20-31); CHLORIDE LEVEL 105 MMOL/L (98-107); CREATININE FOR GFR 0.76 MG/DL (0.55-1.30); GLOMERULAR FILTRATION RATE > 60.0 (>60); GLUCOSE, FASTING 135 MG/DL (60-100); POTASSIUM SERUM 4.4 MMOL/L (3.5-5.1); SODIUM LEVEL 139 MMOL/L (136-145); TOTAL PROTEIN 7.4 G/DL (5.7-8.2)
== END 2024-09-30 02:00 | disposition left against medical advice (07) ==
LOC: M ED 22:54
DX: Z53.21 Procedure and treatment not carried out due to patient leaving prior to being seen by health care provider (principal)

== ENCOUNTER → 2024-10-03 | Outpatient (CLI) | payer OTHER ==
[2024-10-03 13:40] LABS: BASO % 0.2 % (0.0-1.0); EOS # 0.1 10^3/uL (0.0-0.5); HEMATOCRIT 41.5 % (36.0-47.0); LYMPH # 2.4 10^3/uL (1.5-5.0); LYMPH % 29.2 % (24.0-44.0); MEAN CORPUSCULAR HEMOGLOBIN 27.2 pg (27.0-33.0); MEAN CORPUSCULAR HGB CONC 31.3 g/dl (32.0-36.5); MEAN CORPUSCULAR VOLUME 86.8 fl (80.0-96.0); MONO # 0.3 10^3/uL (0.0-0.8); MONO % 4.1 % (2.0-8.0); NEUTROPHILS # 5.3 10^3/uL (1.5-8.5); NEUTROPHILS % 65.1 % (36.0-66.0); PLATELET COUNT, AUTOMATED 234 10^3/uL (150-450); RED BLOOD COUNT 4.78 10^6/uL (4.00-5.40); WHITE BLOOD COUNT 8.1 10^3/uL (4.0-10.0)
[2024-10-03 13:59] LABS: CREATININE, URINE 124.3 MG/DL; MAU/CREAT RATIO 61.9 MCG/MG (0.0-30.0)
[2024-10-03 14:02] LABS: ALBUMIN 4.1 G/DL (3.2-5.2); ALKALINE PHOSPHATASE 101 U/L (35-104); ALT/SGPT 22 U/L (7.0-40); AST/SGOT 16 U/L (<34); BILIRUBIN,TOTAL 0.2 MG/DL (0.3-1.2); BLOOD UREA NITROGEN 10 MG/DL (9-23); CALCIUM LEVEL 9.2 MG/DL (8.5-10.1); CARBON DIOXIDE LEVEL 32 MMOL/L (20-31); CHLORIDE LEVEL 103 MMOL/L (98-107); CHOLESTEROL LEVEL 158 MG/DL (<200); CHOLESTEROL RISK RATIO 4.31 (<5); CREATININE FOR GFR 0.69 MG/DL (0.55-1.30); GLOMERULAR FILTRATION RATE > 60.0 (>60); GLUCOSE, FASTING 97 MG/DL (60-100); HDL CHOLESTEROL 36.6 MG/DL (>40); MAGNESIUM LEVEL 1.7 MG/DL (1.8-2.4); NON-HDL-C 121.4 MG/DL; SODIUM LEVEL 140 MMOL/L (136-145); TOTAL PROTEIN 7.4 G/DL (5.7-8.2); TRIGLYCERIDES LEVEL 327 MG/DL (<150)
[2024-10-03 14:04] LABS: FREE T4 0.95 NG/DL (0.89-1.76); THYROID STIMULATING HORMONE 2.458 uIU/ML (0.55-4.78)
[2024-10-03 14:28] LABS: HEMOGLOBIN A1c 9.3 % (4.0-6.0)
== END ==
LOC: M PLALAB 10:54
PROVIDERS: ATTEND Nurse Practitioner Family
DX: E11.65 Type 2 diabetes mellitus with hyperglycemia (principal); E78.2 Mixed hyperlipidemia; I10 Essential (primary) hypertension; E55.9 Vitamin D deficiency, unspecified; E03.9 Hypothyroidism, unspecified

== ENCOUNTER → 2024-10-03 | Outpatient (CLI) | payer OTHER ==
[2024-10-03 13:42] LABS: HEMATOCRIT 41.2 % (36.0-47.0); MEAN CORPUSCULAR HEMOGLOBIN 27.5 pg (27.0-33.0); MEAN CORPUSCULAR HGB CONC 31.6 g/dl (32.0-36.5); MEAN CORPUSCULAR VOLUME 87.1 fl (80.0-96.0); PLATELET COUNT, AUTOMATED 231 10^3/uL (150-450); RED BLOOD COUNT 4.73 10^6/uL (4.00-5.40); WHITE BLOOD COUNT 8.9 10^3/uL (4.0-10.0)
[2024-10-03 13:57] LABS: LIPASE 31 U/L (12-53)
[2024-10-03 13:59] LABS: ALBUMIN 4.1 G/DL (3.2-5.2); ALKALINE PHOSPHATASE 99 U/L (35-104); ALT/SGPT 22 U/L (7.0-40); AST/SGOT 15 U/L (<34); BILIRUBIN,TOTAL 0.2 MG/DL (0.3-1.2); BLOOD UREA NITROGEN 9 MG/DL (9-23); CALCIUM LEVEL 9.2 MG/DL (8.5-10.1); CARBON DIOXIDE LEVEL 29 MMOL/L (20-31); CHLORIDE LEVEL 106 MMOL/L (98-107); CREATININE FOR GFR 0.65 MG/DL (0.55-1.30); GLOMERULAR FILTRATION RATE > 60.0 (>60); GLUCOSE, FASTING 97 MG/DL (60-100); POTASSIUM SERUM 3.8 MMOL/L (3.5-5.1); SODIUM LEVEL 142 MMOL/L (136-145); TOTAL PROTEIN 7.1 G/DL (5.7-8.2)
== END ==
LOC: M PLALAB 10:58
PROVIDERS: ATTEND Physician Assistant Medical
DX: R10.32 Left lower quadrant pain (principal); E11.65 Type 2 diabetes mellitus with hyperglycemia

== ENCOUNTER → 2024-10-04 | Outpatient (CLI) | payer OTHER | LOC: M RAD 17:01 | PROVIDERS: ATTEND Physician Assistant Medical | DX: K42.9 Umbilical hernia without obstruction or gangrene (principal); R10.32 Left lower quadrant pain; E11.65 Type 2 diabetes mellitus with hyperglycemia ==

== ENCOUNTER → 2024-10-14 | Outpatient (CLI) | payer OTHER ==
[2024-10-14 10:23] LABS: BLOOD UREA NITROGEN 11 MG/DL (9-23); CALCIUM LEVEL 9.1 MG/DL (8.5-10.1); CARBON DIOXIDE LEVEL 29 MMOL/L (20-31); CHLORIDE LEVEL 102 MMOL/L (98-107); GLOMERULAR FILTRATION RATE > 60.0 (>60); GLUCOSE, FASTING 127 MG/DL (60-100); MAU/CREAT RATIO 72.2 MCG/MG (0.0-30.0); POTASSIUM SERUM 4.1 MMOL/L (3.5-5.1); SODIUM LEVEL 140 MMOL/L (136-145)
== END ==
LOC: M PLALAB 09:05
PROVIDERS: ATTEND Nurse Practitioner Family
DX: E11.65 Type 2 diabetes mellitus with hyperglycemia (principal)

== ENCOUNTER → 2024-10-14 | Outpatient (CLI) | payer OTHER ==
[2024-10-14 09:51] LABS: PLATELET COUNT, AUTOMATED 236 10^3/uL (150-450)
[2024-10-14 10:00] LABS: INR 1.08; PROTHROMBIN TIME 14.3 SECONDS (12.5-14.5)
== END ==
LOC: M PLALAB 09:02
PROVIDERS: ATTEND Physician Assistant Surgical
DX: Z01.818 Encounter for other preprocedural examination (principal)

== ENCOUNTER 2024-12-27 06:44 | Day surgery (SDC) | payer OTHER ==
[~2024-12-27] VITALS: Ht 154.9 cm; Wt 101.9 kg
[~2024-12-27 06:44] MED LIST changes: +LAMI25TA PO; +LAMO25TA4 PO; +METF10004 PO; +OMEG10002 PO; +PANT40TA29 PO; +SEMA0.257 SQ; +SIMETHICONE 40MG/0.6ML DROPS 30ML As Ordered ONE; +STEG15TA PO; +TELM1TAB33 PO
[2024-12-27] MEDS ORDERED: ONDANSETRON 4MG 2ML VIAL As Ordered ONE (07:24)
[2024-12-27] MEDS ORDERED: LIDOCAINE 2% 100MG/5ML SDV (FOR ANES.) As Ordered ONE (07:24)
[2024-12-27] MEDS ORDERED: propofoL 200 MG/20 ML VIAL As Ordered ONE (07:26)
[2024-12-27] MEDS ORDERED: GLYCOPYRROLATE INJ 0.2 MG/ML 2 ML VIAL As Ordered ONE (07:27)
[2024-12-27 07:45] VITALS: TEMP 97
[2024-12-27 08:02] VITALS: BP 131/66; O2SAT 97
== END 2024-12-27 08:18 | disposition home or self-care (01) ==
LOC: M OPP 06:44
PROVIDERS: ATTEND Surgery
DX: K31.89 Other diseases of stomach and duodenum (principal); R10.84 Generalized abdominal pain; G47.30 Sleep apnea, unspecified; Z88.1 Allergy status to other antibiotic agents; Z88.5 Allergy status to narcotic agent; Z88.8 Allergy status to other drugs, medicaments and biological substances; Z91.048 Other nonmedicinal substance allergy status; Z79.51 Long term (current) use of inhaled steroids; Z79.4 Long term (current) use of insulin; Z79.84 Long term (current) use of oral hypoglycemic drugs; Z79.85 Long-term (current) use of injectable non-insulin antidiabetic drugs; Z79.899 Other long term (current) drug therapy; J45.909 Unspecified asthma, uncomplicated; F17.290 Nicotine dependence, other tobacco product, uncomplicated
CPT/HCPCS: 43239; 88305; J1596; J2405

== ENCOUNTER 2024-12-28 11:43 | Emergency (ER) | payer OTHER ==
[~2024-12-28] VITALS: Ht 152.4 cm; Wt 102.6 kg
[~2024-12-28 11:43] MED LIST changes: -SIMETHICONE 40MG/0.6ML DROPS 30ML As Ordered ONE
[2024-12-28 12:49] LABS: BASO % 0.2 % (0.0-1.0); EOS % 0.2 % (0.0-3.0); HEMATOCRIT 39.7 % (36.0-47.0); LYMPH # 1.7 10^3/uL (1.5-5.0); LYMPH % 16.5 % (24.0-44.0); MEAN CORPUSCULAR HEMOGLOBIN 27.7 pg (27.0-33.0); MEAN CORPUSCULAR HGB CONC 32.7 g/dl (32.0-36.5); MEAN CORPUSCULAR VOLUME 84.5 fl (80.0-96.0); MONO # 0.4 10^3/uL (0.0-0.8); MONO % 3.7 % (2.0-8.0); NEUTROPHILS % 79.3 % (36.0-66.0); PLATELET COUNT, AUTOMATED 188 10^3/uL (150-450); WHITE BLOOD COUNT 10.1 10^3/uL (4.0-10.0)
[2024-12-28 13:14] LABS: LIPASE 23 U/L (12-53)
[2024-12-28 13:16] LABS: ALBUMIN 3.4 G/DL (3.2-5.2); ALKALINE PHOSPHATASE 71 U/L (35-104); ALT/SGPT 19 U/L (7.0-40); AST/SGOT 17 U/L (<34); BILIRUBIN,DIRECT < 0.1 MG/DL (<0.4); BILIRUBIN,TOTAL 0.3 MG/DL (0.3-1.2); BLOOD UREA NITROGEN 9 MG/DL (9-23); CALCIUM LEVEL 8.6 MG/DL (8.5-10.1); CARBON DIOXIDE LEVEL 27 MMOL/L (20-31); CHLORIDE LEVEL 102 MMOL/L (98-107); CREATININE FOR GFR 0.48 MG/DL (0.55-1.30); GLOMERULAR FILTRATION RATE > 90.0 (>60); GLUCOSE, FASTING 184 MG/DL (60-100); POTASSIUM SERUM 4.2 MMOL/L (3.5-5.1); SODIUM LEVEL 136 MMOL/L (136-145); TOTAL PROTEIN 6.4 G/DL (5.7-8.2)
[2024-12-28] MEDS: KETOROLAC 30 MG/ML 1ML VIAL IV ONE (14:06)
[2024-12-28] MEDS: PANTOPRAZOLE SODIUM 40 MG in D5W 50 ML IV SCH (14:08)
[2024-12-28] MEDS: LIDOCAINE VISCOUS 2% SOLN 15ML UDC PO ONE (15:50)
[2024-12-28] MEDS: MAALOX 30 ML SUSP *UDC PO ONE (15:50)
[2024-12-28] MEDS: METOCLOPRAMIDE INJ 10MG/2ML VIAL IV ONE (15:50)
[2024-12-28 16:40] VITALS: BP 106/68; TEMP 98; O2SAT 98
== END 2024-12-28 16:41 | disposition home or self-care (01) ==
LOC: M ED 11:43
DX: R10.9 Unspecified abdominal pain (principal); E11.9 Type 2 diabetes mellitus without complications; I10 Essential (primary) hypertension; K21.9 Gastro-esophageal reflux disease without esophagitis; F31.9 Bipolar disorder, unspecified; J30.89 Other allergic rhinitis; Z79.4 Long term (current) use of insulin; Z79.899 Other long term (current) drug therapy; Z88.1 Allergy status to other antibiotic agents; Z88.5 Allergy status to narcotic agent; Z88.8 Allergy status to other drugs, medicaments and biological substances
CPT/HCPCS: 71045; 74018; 80048; 80076; 83690; 84702; 85025; 96374; 96375; 99284; J1885; J2470; J2765

== ENCOUNTER → 2025-06-23 | Outpatient (REF) | payer MEDICAID, OTHER ==
[~2025-06-23] MED LIST changes: +LAMO-18 PO; -LAMO25TA4 PO
[2025-06-23 18:59] LABS: Trichomonas vaginalis (AMP) NOT DETECTED (NEGATIVE)
[2025-06-23 19:23] LABS: GC DNA AMPLIFICATION NEGATIVE (NEGATIVE)
== END ==
LOC: M SFHCWAGY 16:48
PROVIDERS: ATTEND Nurse Practitioner Family
DX: N94.10 Unspecified dyspareunia (principal)

== ENCOUNTER → 2025-06-27 | Outpatient (CLI) | payer OTHER ==
[2025-06-27 17:50] LABS: CREATININE, URINE 86.3 MG/DL; MALB URINE SIEMENS 8.0 MG/L; MAU/CREAT RATIO 9.2 MCG/MG (0.0-30.0)
[2025-06-27 17:51] LABS: PLATELET COUNT, AUTOMATED 210 10^3/uL (150-450)
[2025-06-27 17:52] LABS: ALT/SGPT 23 U/L (7.0-40); AST/SGOT 15 U/L (<34); CALCIUM LEVEL 8.9 MG/DL (8.5-10.1); CARBON DIOXIDE LEVEL 26 MMOL/L (20-31); CHLORIDE LEVEL 104 MMOL/L (98-107); CHOLESTEROL LEVEL 206 MG/DL (<200); CHOLESTEROL RISK RATIO 5.29 (<5); CREATININE FOR GFR 0.59 MG/DL (0.55-1.30); GLOMERULAR FILTRATION RATE > 90.0 (>60); LDL CHOLESTEROL 112.1 MG/DL (<100); NON-HDL-C 167.1 MG/DL; POTASSIUM SERUM 4.0 MMOL/L (3.5-5.1); SODIUM LEVEL 139 MMOL/L (136-145); TRIGLYCERIDES LEVEL 275 MG/DL (<150)
== END ==
LOC: M PLALAB 15:05
PROVIDERS: ATTEND Nurse Practitioner Family
DX: E78.2 Mixed hyperlipidemia (principal); E11.65 Type 2 diabetes mellitus with hyperglycemia; R80.9 Proteinuria, unspecified